=== PATIENT | female | born 1975 | race Caucasian/White ===

== ENCOUNTER 2020-10-01 16:16 | Outpatient (REF) | payer MEDICAID, OTHER, SELFPAY ==
--- NOTE | ~2020-10-01 | MM_ITS ---
EXAMINATION: MM SCREENING DIGITAL BREAST TOMOSYNTHESIS, BILATERAL CLINICAL INFORMATION: Screening. Asymptomatic. The lifetime risk of breast cancer based on the Tyrer-Cuzick Model is 15%. COMPARISON: Mammography: 06/26/2019, 03/01/2017 TECHNIQUE: Digital breast tomosynthesis is performed in both the craniocaudal and mediolateral oblique views along with computer-aided detection (CAD). Synthesized 2D images are generated from the tomosynthesis. FINDINGS: There are scattered areas of fibroglandular density (ACR BI-RADS breast composition Category b). There are no significant masses, abnormal calcifications, or other abnormalities. Parenchymal pattern is similar to prior studies. Small nodular asymmetry central inner right breast on CC view are stable. There is no developing density. Again, there is dermal lesion overlying the posterior medial left breast. The axilla are unremarkable. No significant changes. MM/MM tomosynthesis screening BI IMPRESSION: No significant changes from prior studies. ASSESSMENT: BI-RADS 2: Benign RECOMMENDATION: Routine annual mammography screening. This patient's information was entered into a reminder system with a target due date for their next mammogram.
== END 2020-10-01 16:17 | disposition home or self-care (01) ==
LOC: HO.MAMMO 16:16
PROVIDERS: Visit Provider Family Medicine
DX: Z12.31 Encounter for screening mammogram for malignant neoplasm of breast (principal)
CPT/HCPCS: 77063; 77067

== ENCOUNTER 2021-03-12 20:30 | Emergency (ER) | payer MEDICAID, OTHER, SELFPAY ==
--- NOTE | ~2021-03-12 | XR_ITS ---
EXAMINATION: XR CHEST CLINICAL INFORMATION: Difficulty breathing COMPARISON: None TECHNIQUE: Frontal view of the chest was obtained. FINDINGS: No acute finding. No obvious failure or infiltrate. No effusion. The cardiac silhouette is within normal limits. XR/XR chest 1V IMPRESSION: No acute finding.
[2021-03-12 20:36] VITALS: BP 119/77; PULSE 93; RESP 18; TEMP 36.1; O2SAT 98; BMI 39.7
--- NOTE | 2021-03-12 22:16 | PC.NURSE ---
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 pt appears to be in no acute distress. speaking full sentences cough and malaise reported for 4-5 days. pt reports lots of secretions. described as clear and yellow- described as non purulent in nature. cough appears to be dry while with provider. pt denies cp/fever/chills/recent travel. denies exposure to covid. +vaccination status (moderna). pt denies smoking history. pt reports history of asthma, htn, arthritis and related issues. Lung sounds clear in all short. xray does not show pneumonia. Plan is to be tested for covid, flu, rsv.
--- NOTE | 2021-03-12 22:24 | ED.ASTHMA ---
HPI - Asthma General Chief Complaint: Asthma Stated Complaint: asthma Time Seen by Provider: 03/12/21 22:12 Source: patient Mode of arrival: ambulatory History of Present Illness HPI Narrative: 46-year-old female with a past medical history of asthma, HTN, hypothyroid, presenting to the ED complaining of productive cough of clear/yellowish phlegm, SOB, and increased lethargy x4-5 days. Denies fever, chills, chest pain, recent travel, history of blood clots, cigarette smoking, exposure to COVID-19 Is vaccinated for COVID-19 with Jeremie REDD complaint: shortness of breath Related Data Previous Rx's Medication Instructions Recorded albuterol sulfate 90 mcg/actuation 2 puff INHALATION Q4-6H PRN #6.7 g 03/12/21 aerosol inhaler benzonatate 100 mg capsule 100 mg PO TID PRN #14 cap 03/12/21 (Tessalon Perles) fluticasone propionate 50 2 spray INTRANASAL DAILY #16 g 03/12/21 mcg/actuation nasal spray,suspension (Flonase Allergy Relief) hydrocodone-homatropine 5 mg-1.5 5 ml PO Q6H PRN #200 ml 03/12/21 mg/5 mL (5 mL) oral syrup Allergies Allergy/AdvReac Type Severity Reaction Status Date / Time dipyrone [DIPYRONE] Allergy Unknown UNKNOWN Unverified 04/18/20 19:11 blood pressure medication Allergy Unknown Uncoded 03/12/21 20:47 Review of Systems Review of Systems: Constitutional: No Fever, No Chills, No Fatigue, No Malaise ENT/Mouth: No Ear Pain, No Nasal Congestion, No sore throat, No Rhinorrhea, No Swallowing Difficulty Cardiovascular: No Chest Pain, + SOB, No Edema Respiratory: + Cough, + Sputum, No Wheezing, No Smoke Exposure Gastrointestinal: No Nausea, No Vomiting, No Abdominal pain Musculoskeletal: No joint pain Skin: No Skin Lesions, No rash Neuro: No Weakness, No Headache Yes all other systems are reviewed and are negative FOR[facility]LY [facility] Past Medical History Attestation statement: The following information was validated with the patient. Medical History (Updated 03/12/21 @ 23:41 by HARDIK Mora) Asthma HTN (hypertension) Hypothyroidism Social History Social History Advance Directives: No Advance Directives Information Provided: Yes Patient : No Physical Exam Vital Signs: Vital Signs: Last Vital Signs Temp 97.8 F 03/12/21 22:50 Pulse 77 03/12/21 22:50 Resp 16 03/12/21 22:50 BP 148/107 H 03/12/21 22:50 Pulse Ox 97 03/12/21 22:50 Body Mass Index 39.7 Const: General: cooperative, healthy appearing, no acute distress and well developed Orientation/consciousness: patient oriented x3 Limitations: no limitations HENMT: Head: Yes normal to inspection Ears: hearing grossly normal bilaterally General nose exam: Normal external nose present Face and sinus: Yes normal facial exam Throat: Yes posterior oropharynx normal, Yes tonsils normal and Yes uvula midline Eyes: General: appearance normal, both eyes and all related structures EOM: EOMs intact bilaterally Neck: Neck: Yes normal visual inspection Resp: Effort & Inspection: normal respiratory effort Auscultation: clear to auscultation bilaterally, no rales, no rhonchi and no wheezes Cardio: Rate: regular rate Heart sounds: S1 normal heart sound present and S2 normal heart sound present GI: Inspection: Yes normal to inspection Palpation (GI): Soft to palpation, nontender, no guarding and not rigid Skin: Rashes: no rashes Wounds: no wounds Neuro: General: patient oriented x3 Gait exam (Neuro): Normal gait present Extrem: General: Yes normal to inspection, Yes no pedal edema and Yes no calf tenderness Course Course Course Narrative: XR chest 1V IMPRESSION: No acute finding. -2340--COVID-19/influenza/RSV negative. Results discussed with patient, supplied with albuterol inhaler in the ED. Is to follow up with PCP. She verbalized understanding feel safe for discharge home MDM - Asthma MDM Narrative Medical decision making narrative: 46-year-old female with a past medical history of asthma, HTN, hypothyroid, presenting to the ED complaining of productive cough of clear/yellowish phlegm, SOB, and increased lethargy x4-5 days. On exam VSS, NAD/well-appearing, lungs CTA, no pedal edema/calf tenderness. Concern for viral syndrome/COVID-19. Rule out pneumonia. Low concern for ACS/PE Plan: CXR, COVID-19 testing, Tesjohnna Stewart/Hycodasam, inhaler Medical Records Attestation: I reviewed the patient's medical records. Lab Data Attestation: I reviewed the patient's lab results. Labs: Lab Results 03/12/21 Range/Units 22:29 Coronavirus (PCR) NEGATIVE (Negative) Influenza Type A (PCR) NEGATIVE (Negative) Influenza Type B (PCR) NEGATIVE (Negative) RSV RNA Qual (PCR) NEGATIVE (Negative) Discharge Plan Discharge Clinical Impression: Acute viral syndrome Patient Disposition: Home, Self-Care Additional Instructions: You tested negative for COVID-19, the flu, and RSV Your x-ray was also unremarkable Use albuterol inhaler at home for shortness of breath/wheezing Tessalon Perles and Hycodan cough syrup for for cough Please follow-up with her primary care doctor If her symptoms persist or worsen, constant worsening cough, shortness breath, chest pain, or fever please return to the ED Voc? testou negativo para COVID-19, gripe e RSV Seu raio-x tamb?m estava normal Use o inalador de albuterol em casa para falta de ar / respira??o ofegante Tessalon Perles e xarope para tosse Hycodan para tosse Por favor, acompanhe com seu m?dico de cuidados prim?smith Se os sintomas chuck persistirem ou piorarem, piora que da tosse, falta de ar, marcela no peito ou febre, retorne ao pronto-flaca Prescriptions: New albuterol sulfate 90 mcg/actuation HFA aerosol inhaler 2 puff inhalation Q4-6H PRN (Reason: shortness of breath or wheezing) Qty: 6.7 RF: 0 benzonatate [Tessalon Perles] 100 mg capsule 100 mg PO TID PRN (Reason: cough) Qty: 14 RF: 0 fluticasone propionate [Flonase Allergy Relief] 50 mcg/actuation spray,suspension 2 spray intranasal DAILY Qty: 16 RF: 0 hydrocodone-homatropine 5-1.5 mg/5 mL (5 mL) syrup 5 ml PO Q6H PRN (Reason: cough) Qty: 200 RF: 0 Referrals: Heath Maria MD [Primary Care Provider] - 2 days
[2021-03-12] MEDS: Albuterol Sulfate 90 MCG 8 GM INHALER 4 PUFF INHALE (22:30)
[2021-03-12] MEDS: HYDROcodone/Homat 5/1.5/5 ML 5 ML SYRUP PO (22:32)
[2021-03-12] MEDS: Benzonatate 100 MG CAPSULE 200 MG PO (22:32)
[2021-03-12 22:50] VITALS: BP 148/107; PULSE 77; RESP 16; TEMP 36.6; O2SAT 97
[2021-03-12 23:11] LABS: Influenza A PCR NEGATIVE (Negative); Influenza B PCR NEGATIVE (Negative); Resp Syncy Virus RNA Qual PCR NEGATIVE (Negative); SARS COV2 PCR INHOUSE NEGATIVE (Negative)
[2021-03-12 23:43] VITALS: BP 148/86; PULSE 70; RESP 16; O2SAT 98
== END 2021-03-12 23:53 | disposition home or self-care (01) ==
PROVIDERS: Emergency Provider Internal Medicine; PCP Internal Medicine
DX: B34.9 Viral infection, unspecified (principal); J45.909 Unspecified asthma, uncomplicated; I10 Essential (primary) hypertension; Z79.899 Other long term (current) drug therapy; Z20.822 Contact with and (suspected) exposure to COVID-19
CPT/HCPCS: 0241U; 36415; 71045; 99284

== ENCOUNTER 2021-07-03 20:13 | Emergency (ER) | payer MEDICAID, OTHER, SELFPAY ==
--- NOTE | ~2021-07-03 | XR_ITS ---
EXAMINATION: XR CHEST CLINICAL INFORMATION: Cough COMPARISON: Chest x-ray 03/12/2021 TECHNIQUE: Frontal view of the chest was obtained. FINDINGS: Subtle patchy airspace opacity at the right lung base new since prior study. Left lung is normally aerated. There is no pleural effusion. The heart size is normal. The cardiac and the mediastinal contours are normal. XR/XR chest 1V IMPRESSION: Patchy airspace opacity right lung base consistent with pneumonia.
[2021-07-03 20:34] VITALS: BP 153/99; PULSE 106; RESP 18; TEMP 37.2; O2SAT 96; BMI 31.8
--- NOTE | 2021-07-03 21:07 | ED.ASTHMA ---
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 Mode of arrival: ambulatory Limitations: no limitations History of Present Illness MD complaint: asthma attack (fevers, coughs, headaches) Onset (ago): day(s) (4) Severity: moderate Context: other (family members have flu, patient has had two vaccines) Associated symptoms: dry cough and fever Asthma History: childhood onset Treatments Prior to Arrival: inhaled bronchodilator Related Data Previous Rx's Medication Instructions Recorded albuterol sulfate 90 mcg/actuation 2 puff INHALATION Q4-6H PRN #6.7 g 03/12/21 aerosol inhaler benzonatate 100 mg capsule 100 mg PO TID PRN #14 cap 03/12/21 (Tessalon Perljeannette) fluticasone propionate 50 2 spray INTRANASAL DAILY #16 g 03/12/21 mcg/actuation nasal spray,suspension (Flonase Allergy Relief) hydrocodone-homatropine 5 mg-1.5 5 ml PO Q6H PRN #200 ml 03/12/21 mg/5 mL (5 mL) oral syrup amoxicillin 875 mg-potassium 1 tab PO BID 10 Days #20 tab 07/03/21 clavulanate 125 mg tablet (Augmentin) prednisone 20 mg tablet 60 mg PO DAILY 4 Days #12 tab 07/03/21 Allergies Allergy/AdvReac Type Severity Reaction Status Date / Time dipyrone [DIPYRONE] Allergy Unknown UNKNOWN Verified 07/03/21 21:42 blood pressure medication Allergy Unknown Uncoded 07/03/21 21:42 Review of Systems Review of Systems: Constitutional : pos Fever, No Chills ENT/Mouth : No Hoarseness, No sore throat, No Rhinorrhea Eyes: No Redness, No Discharge, No Vision Changes Cardiovascular : No Chest Pain, positive SOB, no Dyspnea on Exertion, No Edema Respiratory : positive Cough, No Sputum, positive Wheezing, Gastrointestinal : No Nausea, No Vomiting, No Diarrhea, No abdominal Pain Genitourinary : No Dysuria, No Hematuria Musculoskeletal : No joint pain, No Myalgias Skin : No rash Neuro : No Weakness, No Numbness, pos Headache Psych : No anxiety, depression Heme/Lymph: No Bruising, No Bleeding Endocrine : No Polyuria, No Polydipsia All other systems reviewed and are negative PMFSH Past Medical History Attestation statement: The following information was validated with the patient. Medical History Asthma HTN (hypertension) Hypothyroidism Social History Social History Alcohol intake: current Alcohol intake frequency: holidays/special occasions only Patient Tobacco Use Status: Never used Tobacco Use of substances other than those prescribed or required for medical reasons: No Advance Directives: No Advance Directives Information Provided: Yes Physical Exam Vital Signs: Vital Signs: Last Vital Signs Temp 98.3 F 07/03/21 21:18 Pulse 100 07/03/21 21:34 Resp 17 07/03/21 21:18 BP 152/92 H 07/03/21 21:18 Pulse Ox 96 07/03/21 21:18 BMI result Body Mass Index 31.8 Appearance: Alert. Oriented X3. No acute distress. Eyes: Pupils equal, round and reactive to light. ENT: Pharynx normal. Neck: Normal inspection. Neck supple. CVS: Normal heart rate and rhythm. Pulses normal. Respiratory: No respiratory distress. Breath sounds diminished scant wheezes noted Abdomen: Soft and non-tender. Skin: Skin warm and dry. Normal skin color. Normal skin turgor. Extremities: No lower extremity edema. No calf ttp Neuro: Oriented X 3. No motor deficit. No sensory deficit. Course Course Course Narrative: lungs clear no hypoxia stable for DC MDM - Asthma MDM Narrative Medical decision making narrative: 46 yo female with asthma notes she has had URI symptoms since Wednesday and her asthma is not responding to her pump - at this time neb treatment, PO steroids, CXR for pneumonia and RSV/flu/COVID ordered given she reports sick flu contacts. She is not toxic or hypoxic at this time. Lab Data Labs: Lab Results 07/03/21 Range/Units 21:26 Influenza Type A (PCR) NEGATIVE (Negative) Influenza Type B (PCR) NEGATIVE (Negative) RSV RNA Qual (PCR) NEGATIVE (Negative) SARS-CoV-2 RNA (RT-PCR) NEGATIVE (Negative) Discharge Plan Discharge Clinical Impression: Asthma with acute exacerbation Qualifiers: Asthma severity: mild Asthma persistence: persistent Qualified Code(s): J45.31 - Mild persistent asthma with (acute) exacerbation Pneumonia Qualifiers: Pneumonia type: due to unspecified organism Laterality: right Lung location: lower lobe of lung Qualified Code(s): J18.9 - Pneumonia, unspecified organism Patient Disposition: Home, Self-Care Instructions: Asthma (ED), Pneumonia (ED) Additional Instructions: return to ED for any worsening symptoms or concerns Prescriptions: New prednisone 20 mg tablet 60 mg PO DAILY 4 Days Qty: 12 RF: 0 amoxicillin-pot clavulanate [Augmentin] 875-125 mg tablet 1 tab PO BID 10 Days Qty: 20 RF: 0 No Action albuterol sulfate 90 mcg/actuation HFA aerosol inhaler 2 puff inhalation Q4-6H PRN (Reason: shortness of breath or wheezing) Qty: 6.7 RF: 0 benzonatate [Tessalon Perles] 100 mg capsule 100 mg PO TID PRN (Reason: cough) Qty: 14 RF: 0 fluticasone propionate [Flonase Allergy Relief] 50 mcg/actuation spray,suspension 2 spray intranasal DAILY Qty: 16 RF: 0 hydrocodone-homatropine 5-1.5 mg/5 mL (5 mL) syrup 5 ml PO Q6H PRN (Reason: cough) Qty: 200 RF: 0 Interventions: ED Discharge Assessment Last Done: 07/03/21 22:46 Discharge Date/Time: 07/03/21 22:46 Print Language: [place]
[2021-07-03 21:18] VITALS: BP 152/92; PULSE 99; RESP 17; TEMP 36.8; O2SAT 96
[2021-07-03 21:34] VITALS: PULSE 100; O2SAT 96
[2021-07-03] MEDS: Albuterol Sulfate (0.083%) 2.5 MG/3 ML VIAL.NEB 5 MG INHALE (21:36)
[2021-07-03] MEDS: predniSONE 20 MG TABLET 60 MG PO (21:43)
[2021-07-03 22:08] LABS: Influenza A PCR NEGATIVE (Negative); Influenza B PCR NEGATIVE (Negative); Resp Syncy Virus RNA Qual PCR NEGATIVE (Negative); SARS COV2 PCR INHOUSE NEGATIVE (Negative)
[2021-07-03] MEDS: Amoxicillin/Potassium Clav 875 MG TABLET PO (22:45)
== END 2021-07-03 22:46 | disposition home or self-care (01) ==
PROVIDERS: Emergency Provider Emergency Medicine
DX: J45.31 Mild persistent asthma with (acute) exacerbation (principal); J18.9 Pneumonia, unspecified organism; Z20.822 Contact with and (suspected) exposure to COVID-19; I10 Essential (primary) hypertension
CPT/HCPCS: 0241U; 36415; 71045; 94640; 99284

== ENCOUNTER 2021-11-25 09:08 | Outpatient (REF) | payer MEDICAID, OTHER, SELFPAY ==
--- NOTE | ~2021-11-25 | MM_ITS ---
EXAMINATION: MM SCREENING DIGITAL BREAST TOMOSYNTHESIS, BILATERAL CLINICAL INFORMATION: Screening. Asymptomatic. The lifetime risk of breast cancer based on the Tyrer-Cuzick Model is 17%. COMPARISON: Mammography: 10/01/2020, 06/26/2019, 03/01/2017 (baseline) TECHNIQUE: Digital breast tomosynthesis is performed in both the craniocaudal and mediolateral oblique views along with computer-aided detection (CAD). Synthesized 2D images are generated from the tomosynthesis. FINDINGS: There are scattered areas of fibroglandular density (ACR BI-RADS breast composition Category b). There are no significant masses, abnormal calcifications, or other abnormalities. Parenchymal pattern is similar to prior studies. There is a dermal lesion again noted overlying the posterior medial left breast. MM/MM tomosynthesis screening BI IMPRESSION: No mammographic evidence of malignancy. ASSESSMENT: BI-RADS 2: Benign RECOMMENDATION: Routine annual mammography screening. This patient's information was entered into a reminder system with a target due date for their next mammogram.
== END 2021-11-25 09:09 | disposition home or self-care (01) ==
LOC: HO.MAMMO 09:08
PROVIDERS: PCP Internal Medicine; Visit Provider Internal Medicine
DX: Z12.31 Encounter for screening mammogram for malignant neoplasm of breast (principal)
CPT/HCPCS: 77063; 77067

== ENCOUNTER → 2022-09-08 08:15 | Outpatient (BNVA) | payer OTHER, SELFPAY | PROVIDERS: PCP Internal Medicine; Visit Provider Nurse Practitioner Family | DX: Z12.11 Encounter for screening for malignant neoplasm of colon (principal) | CPT/HCPCS: 99202 ==

== ENCOUNTER → 2022-09-14 14:31 | Outpatient (BNVA) | payer OTHER, SELFPAY | PROVIDERS: PCP Internal Medicine; Referring Provider Internal Medicine; Visit Provider Internal Medicine Cardiovascular Disease | DX: R07.2 Precordial pain (principal) | CPT/HCPCS: 93005; 99202 ==

== ENCOUNTER → 2022-09-29 13:28 | Outpatient (REF) | payer OTHER, SELFPAY ==
--- NOTE | 2022-09-29 14:17 | CA_ITS ---
Transthoracic Echocardiogram Patient (Last, First, Middle): Elizabeth Coorna, Gender: Female Date of : 1975 Age: 47 Procedure Date: 09/29/2022 Procedure Type: Transthoracic Echocardiogram Location: OP Height: 152. cm Weight: 92. kg BSA: 1.87 m2 Heart Rate: 67 bpm BP: 125 / 80 mmHg Face Burler: JOSEPH Referring MD: Neo Harris MD Research Electrician: Neo Harris MD Symptoms: R07.2 - Precordial pain Study Quality: Fair ECG Rhythm: Sinus Conclusions: - 1. Normal LV systolic function with normal filling pattern 2. Normal cardiac valvular Doppler 3. Normal RV systolic pressure 4. No gross pericardial effusion Findings Left Ventricle Normal left ventricular size, thickness, and systolic function. The visually estimated ejection fraction is between 55-60%. Regional wall motion abnormalities can not be excluded due to suboptimal endocardial definition. Spectral Doppler is indicative of a normal filling pattern. Right Ventricle Normal right ventricular cavity size. There is normal right ventricular systolic function. Atria The left atrium is normal in size. Interatrial shunt cannot be excluded. The right atrium is normal in size. Aortic Valve The aortic valve structure and function is likely normal. There is no aortic valve stenosis. There is no aortic valve regurgitation. Mitral Valve There is mild anterior and posterior mitral leaflet thickening. There is trace mitral valve regurgitation. There is no mitral valve stenosis. Pulmonic Valve The pulmonic valve was not well visualized. Tricuspid Valve Likely normal tricuspid valve structure and function. There is trace tricuspid valve regurgitation. The right ventricular systolic pressure is normal. The right ventricular systolic pressure is 17 mmHg. Normal right atrial pressure. There is no evidence of pulmonary hypertension. Great Vessels All visible segments of the aorta are normal in size. The pulmonary artery was not well visualized. Venous The inferior vena cava is normal in size and collapses greater than 50% with inspiration. Pericardium/Pleural There is no evidence of pericardial effusion. Prior Study Comparison No significant change compared to prior study dated: 08/24/2018. Recommendations, Care & Conclusions Recommend contrast in the future to improve endocardial definition. Measurements 2D Linear Measurements IVSd: 0.86 0.6-0.9/0.6-1.0 cm LVIDd: 5.32 3.9-5.3/4.2-5.9 cm LVIDd Index: 2.84 2.4-3.2/2.2-3.1 cm/m2 LVIDs: 3.67 2.0-3.6 cm LVPWd: 0.86 0.7-1.1 cm LA Diam: 3.60 2.7-3.8/3.0-4.0 cm LAIDs Index: 1.93 1.5-2.3 cm/m2 LV Mass: 206.12 67-162/88-224 g LV Mass Index: 110.23 43-95/49-115 g/m2 LVOT Diam: 1.90 3.0+(-)1.3 cm 2D Systolic Function EF 4C: 55.70 >55% EF 2C: 55.60 >55% EF BiP: 54.50 >55% Mitral Valve MV Pk E: 1.10 MV PK A: 0.92 MV Decel Time: 215.00 E/A: 1.20 E'Lateral: 9.03 E'Medial: 9.03 E/E' Med: 12.20 E/E' Lat: 12.20 PHT: 63.00 MVA PHT: 3.49 Decel Nelson: 5.10 Aortic Valve AoV Pk Ilya: 1.44 AoV Mn Ilya: 1.10 AoV VTI: 0.36 AoV Pk Grad: 8.00 Aov Mn Grad: 5.00 JH Cont.VTI: 2.28 LVOT LVOT Pk Ilya: 1.17 LVOT Mn Ilya: 0.92 LVOT VTI: 0.29 LVOT Pk Grad: 5.00 LVOT Mn Grad: 4.00 LVOT Diam: 1.90 LVOT Area: 2.84 Diastolic Function MV Pk E: 1.10 MV Pk A: 0.92 E/A: 1.20 E'Medial: 9.03 E/E' Med: 12.20 E' Laterial: 9.03 E/E' Lat: 12.20 Right Ventricle TAPSE (mm): 21.70 TVS' Ilya: 12.20 Tricuspid Valve TR Pk Ilya: 1.87 TR Pk Grad: 14.00 RA Press: 3.00 RVSP: 17.00 Great Vessels Aorta Sinus of Valsalva: 2.70 2.0-3.5 cm Ao Asc: 3.30 2.1-3.4 cm Pulmonary Valve PV Pk Ilya: 0.88 Peak PV Grad: 3.00 Updated in Other Vendor System with Status of Final Neo Harris MD electronically signed on 09/30/2022 4:51:40 PM with status of Final
--- NOTE | 2022-09-29 14:17 | HM_ITS ---
Conclusion: 1. Patient was monitored for total period of 1 day and 18 hours 2. Baseline was normal sinus rhythm with average heart of 81 beats per minute 3. No significant pauses, arrhythmias or bradycardia noted 4. No patient reported events MTDD
== END ==
LOC: HO.CARD 13:28
PROVIDERS: PCP Internal Medicine; Visit Provider Internal Medicine Cardiovascular Disease
DX: R07.2 Precordial pain (principal)
CPT/HCPCS: 93225; 93306

== ENCOUNTER → 2022-10-01 09:32 | Outpatient (REF) | payer OTHER, SELFPAY ==
--- NOTE | ~2022-10-01 | NM_ITS ---
Exercise Myocardial perfusion study Indication: Precordial chest pain to evaluate for myocardial ischemia Technique: The patient was brought in for an exercise perfusion study on 10/01/2022. Patient performed exercise as per Eduardo protocol and was injected 25 mCi of sestamibi was given intravenously one target HR was achieved. Images were obtained using the SPECT gamma camera interlaced with the gating device. Images were obtained in supine position. Resting perfusion study was performed on 10/06/2022. Patient was administered 25 mCi of sestamibi intravenously at rest. Images were then obtained in supine position. Images obtained with and without CT attenuation. Total DLP 103 mGy-cm. Images were processed with the software and compared side to side in short axis, horizontal long axis and vertical long axis views. Findings: The stress perfusion study showed non attenuated images show overall normal uptake of radiotracer in all segments of LV myocardium. Attenuation corrected images show minimal thinning of the basal septum of the LV myocardium.. The gated study shows normal LV systolic function with calculated LVEF of 74%. LV cavity is normal in size. The gated study shows normal systolic wall thickening and contraction of all segments. There is no transient ischemic dilation. Resting study shows attenuated corrected images show normal uptake of radiotracer in all segments of LV myocardium. Gating at rest reveals normal systolic wall motion with ejection fraction at 70%. The findings are consistent with normal myocardial perfusion. NM/NM cardiolite stress test Impression: 1. Normal myocardial perfusion 2. Gated LVEF is 70 3. Transient ischemic dilatation not present Stress EKG is equivocal for ischemia
--- NOTE | 2022-10-01 09:35 | CA_ITS ---
Acquisition Time: 2022-10-01 10:41:47 Total Exercise Time: 00:07:18 Test Indications: CP Medications: SEE H Protocol: ELAINE Max HR: 150 BPM 87% of Pred: 172 BPM Max BP: 160/068 mmHG Max Work Load: 8.4 METS Exercise stress test using Elaine protocol, total of 7 min 18 sec, METS 8.40 and HR up to 87 % of TAPHR. Pt toleesdrated well, Mild SOB without CP at the end of the exercise. EKG without arrhythmia, mild horizontal ST depressions seen in lead V5 and V6, nuclear images to follow. Normotensive response to exedrcise. Test reviewed with Dr. Harris Referred By: Neo Harris Overread By: Miroslava Washburn NP
== END ==
LOC: HO.CARD 09:32
PROVIDERS: PCP Internal Medicine; Visit Provider Internal Medicine Cardiovascular Disease
DX: R07.2 Precordial pain (principal)
CPT/HCPCS: 78452; 93017; A9500

== ENCOUNTER → 2022-10-26 15:17 | Outpatient (BNVA) | payer OTHER, SELFPAY | PROVIDERS: PCP Internal Medicine; Referring Provider Internal Medicine; Visit Provider Internal Medicine Cardiovascular Disease | DX: Z01.810 Encounter for preprocedural cardiovascular examination (principal); R07.2 Precordial pain | CPT/HCPCS: 99212 ==

== ENCOUNTER 2022-11-25 19:01 | Emergency (ER) | payer OTHER, SELFPAY ==
--- NOTE | ~2022-11-25 | XR_ITS ---
EXAMINATION: PORTABLE CHEST 1 VIEW CLINICAL INFORMATION: CP SOB cough. COMPARISON: 07/03/2021. TECHNIQUE: Portable frontal view of the chest was obtained. FINDINGS: The lungs are well expanded. No focal infiltrate, effusion, edema, or pneumothorax. Cardiac and mediastinal silhouettes are within normal limits for technique. Degenerative changes in the spine and shoulders. No acute bony abnormality seen. XR/XR chest 1V IMPRESSION: No evidence of acute disease.
--- NOTE | 2022-11-25 19:31 | ED.GENADULT ---
HPI - General Adult General Chief complaint: Asthma <HARDIK Cotton - Last Filed: 11/25/22 19:35> Stated complaint: SOB/Asthma/ coughing/fever <HARDIK Cotton - Last Filed: 11/25/22 19:35> Time Seen by Provider: 11/25/22 21:59 <HARDIK Cotton - Last Filed: 11/25/22 19:35> Source: patient, RN notes reviewed, old records reviewed and educational sign language interpreter (Upper Sorbian voice educational sign language interpreter) <Alphonse Banuelos - Last Filed: 11/25/22 23:17> Mode of arrival: ambulatory <Alphonse Banuelos - Last Filed: 11/25/22 23:17> Limitations: language barrier <Alphonse Banuelos - Last Filed: 11/25/22 23:17> History of Present Illness HPI narrative: 47-year-old female past medical history significant for asthma presents for evaluation of shortness of breath, cough. Patient is intubated using he reports he has voiced interpreting services. She reports increasing shortness of breath for the last 4 days She reports dry cough and subjective fevers 3 days ago, no fevers today. Denies any headaches, sore throat, chest pain She reports that she has an albuterol inhaler but only saline for a nebulizer machine at home No other complaints or concerns at this time <Alphonse Banuelos - Last Filed: 11/25/22 23:17> Related Data Home medications: Home Medications Medication Instructions Recorded Confirmed atenolol 50 mg tablet 50 mg PO DAILY 09/08/22 10/26/22 hydrochlorothiazide 25 mg tablet 25 mg PO DAILY 09/08/22 10/26/22 levothyroxine 75 mcg tablet 75 mcg PO DAILY 09/08/22 10/26/22 ustekinumab 45 mg/0.5 mL 45 mg subcut Q12W 09/08/22 10/26/22 subcutaneous syringe (Stelara) losartan 100 mg tablet 100 mg PO DAILY 09/14/22 10/26/22 Previous Rx's Medication Instructions Recorded albuterol sulfate 90 mcg/actuation 2 puff inhalation Q4-6H PRN 03/12/21 aerosol inhaler shortness of breath or wheezing #6.7 grams fluticasone propionate 50 2 spray intranasal DAILY #16 grams 03/12/21 mcg/actuation nasal spray,suspension (Flonase Allergy Relief) bisacodyl 5 mg tablet,delayed 10 mg PO ONCE 1 day #2 tabs 09/08/22 release (Dulcolax (bisacodyl)) polyethylene glycol 3350 17 17 g PO DAILY #510 grams 09/08/22 gram/dose oral powder (Miralax) polyethylene glycol 3350 17 238 g PO ONCE #238 grams 09/08/22 gram/dose oral powder (Miralax) albuterol sulfate 1.25 mg/3 mL 1.25 mg (3 mL) inhalation Q4-6H 11/25/22 solution for nebulization PRN shortness of breath or wheezing #90 mL prednisone 20 mg tablet 40 mg PO DAILY #10 tabs 11/25/22 <HARDIK Cotton - Last Filed: 11/25/22 19:35> Allergies/adverse reactions: Allergies Allergy/AdvReac Type Severity Reaction Status Date / Time dipyrone [DIPYRONE] Allergy Unknown UNKNOWN Verified 10/26/22 15:31 pork derived (porcine) Allergy Unknown Verified 11/25/22 19:31 blood pressure medication Allergy Unknown Uncoded 09/08/22 08:28 <HARDIK Cotton - Last Filed: 11/25/22 19:35> Review of Systems Constitutional: Constitutional: Reports as per HPI, Denies chills, Denies fatigue, Reports fever(s) and Denies headache(s) <Alphonse Banuelos - Last Filed: 11/25/22 23:17> ENT: Denies headache(s) <Alphonse Banuelos - Last Filed: 11/25/22 23:17> Cardiovascular: Cardiovascular: Denies chest pain, Reports dyspnea and Reports dyspnea on exertion <Alphonse Banuelos - Last Filed: 11/25/22 23:17> Respiratory: Respiratory: Reports cough, Reports dyspnea and Reports dyspnea on exertion <Alphonse Banuelos - Last Filed: 11/25/22 23:17> Gastrointestinal: Gastrointestinal: Denies abdominal pain <Alphonse Banuelos - Last Filed: 11/25/22 23:17> Genitourinary: Genitourinary: Denies dysuria <Alphonse Banuelos - Last Filed: 11/25/22 23:17> Neurologic: Denies headache(s) and Denies focal weakness <Alphonse Banuelos - Last Filed: 11/25/22 23:17> Endocrine: Endocrine: Denies fatigue <Alphonse Banuelos - Last Filed: 11/25/22 23:17> [facility] Past Medical History Medical History: Medical History Asthma HTN (hypertension) Hypothyroidism <HARDIK Cotton - Last Filed: 11/25/22 19:35> Family History Family History: Family History Mother Heart attack Obesity Hypertension Depression Father Heart attack Diabetes Hypertension Brother Heart attack <HARDIK Cotton - Last Filed: 11/25/22 19:35> Social History Social History: Social History Alcohol intake: never Patient Tobacco Use Status: Never used Tobacco Advance Directives: No Advance Directives Information Provided: No <HARDIK Cotton - Last Filed: 11/25/22 19:35> Physical Exam ED Vital Signs: Vital Signs - 24 hr 11/25/22 19:32 11/25/22 21:35 Temperature 97.8 F 98.6 F Pulse Rate 95 80 Respiratory Rate 18 20 Blood Pressure 136/87 131/81 Pulse Oximetry 97 96 Oxygen Delivery Method Room Air Room Air BMI result Body Mass Index 40.6 <HARDIK Cotton - Last Filed: 11/25/22 19:35> Vital Signs - 24 hr 11/25/22 19:32 11/25/22 21:35 Temperature 97.8 F 98.6 F Pulse Rate 95 80 Respiratory Rate 18 20 Blood Pressure 136/87 131/81 Pulse Oximetry 97 96 Oxygen Delivery Method Room Air Room Air BMI result Body Mass Index 40.6 <Alphonse Banuelos - Last Filed: 11/25/22 23:17> Const General: healthy appearing, comfortable, no acute distress, alert and awake <Alphonse Banuelos - Last Filed: 11/25/22 23:17> Nutritional Appearance: well nourished < - Last Filed: 11/25/22 23:17> Orientation/consciousness: patient oriented x3 < Last Filed: 11/25/22 23:17> HENMT Head: Yes normocephalic and Yes atraumatic < - Last Filed: 11/25/22 23:17> Throat: Yes posterior oropharynx normal < Last Filed: 11/25/22 23:17> Eyes Eyelids: Yes eyelids normal < - Last Filed: 11/25/22 23:17> Conjunctivae: conjunctivae normal < - Last Filed: 11/25/22 23:17> Sclerae: sclerae normal < Last Filed: 11/25/22 23:17> Corneas: corneas normal < Last Filed: 11/25/22 23:17> Pupils: Equal, round and reactive pupils present < Last Filed: 11/25/22 23:17> EOM: EOMs intact bilaterally < Last Filed: 11/25/22 23:17> Neck Neck: Yes full ROM < Last Filed: 11/25/22 23:17> Resp Effort & Inspection: normal respiratory effort, able to speak in complete sentences and audible wheezes < Last Filed: 11/25/22 23:17> Auscultation: not clear to auscultation bilaterally and wheezes < Last Filed: 11/25/22 23:17> Cardio Rate: regular rate < - Last Filed: 11/25/22 23:17> Rhythm: regular rhythm < - Last Filed: 11/25/22 23:17> Skin General skin exam: no rashes or lesions noted and elasticity normal < Last Filed: 11/25/22 23:17> Neuro General: patient oriented x3 < Last Filed: 11/25/22 23:17> Cranial nerves: Yes Equal, round and reactive pupils present and Yes Bilaterally intact EOM present <Alphonse Banuelos - Last Filed: 11/25/22 23:17> Cognition (Neuro): normal cognition <Alphonse Banuelos - Last Filed: 11/25/22 23:17> Extrem Other: Moving all extremities well without any obvious deformities <Alphonse Banuelos - Last Filed: 11/25/22 23:17> Course Course Course Narrative: This is an RME: Additional HPI, ROS, PE not included below will be deferred to primary provider. 47 year old female with PMH of asthma, HTN and hypothyoid presents with SOB, cough and recent fevers. Patient had a negative COVID test. No sick contacts. Patient reports CP with cough and additionally endorses fatigue and malaise. PE: audible wheezes that clear with cough Plan: Flu swab <HARDIK Cotton - Last Filed: 11/25/22 19:35> Medical Decision Making Medical Decision Making MDM Narrative: Patient clinically has a mild asthma exacerbation. She is in no respiratory distress. Chest x-ray is without evidence of pneumonia or other respiratory issues. Will treat with a short course of prednisone and albuterol refills for her nebulizer machine. Vital signs are stable on room air <Alphonse Banuelos - Last Filed: 11/25/22 23:17> Differential Diagnosis Acute asthma exacerbation Upper respiratory infection Viral syndrome COVID-19 <Alphonse Banuelos - Last Filed: 11/25/22 23:17> Lab Data Result Diagrams: 11/25/22 20:31 11/25/22 20:31 <HARDIK Cotton - Last Filed: 11/25/22 19:35> Labs: Lab Results 11/25/22 11/25/22 11/25/22 Range/Units 20:31 20:31 20:31 WBC 6.4 (4.8-10.8) X10*3/uL RBC 4.88 (4.20-5.50) X10*6/uL Hgb 13.9 (12.0-16.0) g/dl Hct 41.6 (37.0-47.0) % MCV 85.2 (80.0-98.0) fL MCH 28.5 (27.0-33.0) pg MCHC 33.4 (31.0-35.0) g/dl RDW 12.7 (11.0-16.0) % Plt Count 210 (160-400) X10*3/uL MPV 9.9 (9.4-12.3) fL Immature Gran % (Auto) 0.3 (0.0-0.4) % Neut % (Auto) 54.0 (45-73) % Lymph % (Auto) 24.9 (20-40) % Childress % (Auto) 14.6 H (2-11) % Eos % (Auto) 5.6 H (0-4) % Baso % (Auto) 0.6 (0-2) % Lymph # (Auto) 1.6 (1.2-4.9) X10*3/uL Childress # (Auto) 0.9 (0.1-1.2) X10*3/uL Eos # (Auto) 0.4 (0.0-0.4) X10*3/uL Baso # (Auto) 0.0 (0.0-0.2) X10*3/uL Abs Immat Gran (auto) 0.02 (0.00-0.03) X10*3/uL Absolute Neuts (auto) 3.5 (2.0-8.3) x10*3/uL Absolute Nucleated RBC 0.000 (0.0-0.012) X10*3/uL Nucleated RBC % (auto) 0.0 (0.0-0.2) /100WBC Sodium 139 (135-145) mmol/L Potassium 3.9 (3.3-5.1) mmol/L Chloride 101 (96-108) mmol/L Carbon Dioxide 26 (22-29) mmol/L Anion Gap 16 (12-20) BUN 17 H (9-16) mg/dL Creatinine 0.69 (0.5-1.4) mg/dL Estim Creat Clear Calc 98.3 Estimated GFR > 60 Random Glucose 102 (60-115) mg/dL Calcium 9.1 (8.4-10.2) mg/dL Total Bilirubin 0.4 (0.0-1.0) mg/dL AST 21 (5-31) U/L ALT 16 (0-31) U/L Alkaline Phosphatase 64 (39-117) U/L Total Protein 6.9 (6.5-8.0) g/dL Albumin 3.9 (3.5-5.0) g/dL COVID-19 (MARK) (Negative) COVID-19 Clin Com Influenza Type A (RUY) Negative (Negative) Influenza Type B (RUY) Negative (Negative) Influenza A & B Note See Note 11/25/22 Range/Units 20:31 WBC (4.8-10.8) X10*3/uL RBC (4.20-5.50) X10*6/uL Hgb (12.0-16.0) g/dl Hct (37.0-47.0) % MCV (80.0-98.0) fL MCH (27.0-33.0) pg MCHC (31.0-35.0) g/dl RDW (11.0-16.0) % Plt Count (160-400) X10*3/uL MPV (9.4-12.3) fL Immature Gran % (Auto) (0.0-0.4) % Neut % (Auto) (45-73) % Lymph % (Auto) (20-40) % Childress % (Auto) (2-11) % Eos % (Auto) (0-4) % Baso % (Auto) (0-2) % Lymph # (Auto) (1.2-4.9) X10*3/uL Childress # (Auto) (0.1-1.2) X10*3/uL Eos # (Auto) (0.0-0.4) X10*3/uL Baso # (Auto) (0.0-0.2) X10*3/uL Abs Immat Gran (auto) (0.00-0.03) X10*3/uL Absolute Neuts (auto) (2.0-8.3) x10*3/uL Absolute Nucleated RBC (0.0-0.012) X10*3/uL Nucleated RBC % (auto) (0.0-0.2) /100WBC Sodium (135-145) mmol/L Potassium (3.3-5.1) mmol/L Chloride (96-108) mmol/L Carbon Dioxide (22-29) mmol/L Anion Gap (12-20) BUN (9-16) mg/dL Creatinine (0.5-1.4) mg/dL Estim Creat Clear Calc Estimated GFR Random Glucose (60-115) mg/dL Calcium (8.4-10.2) mg/dL Total Bilirubin (0.0-1.0) mg/dL AST (5-31) U/L ALT (0-31) U/L Alkaline Phosphatase (39-117) U/L Total Protein (6.5-8.0) g/dL Albumin (3.5-5.0) g/dL COVID-19 (MARK) Negative (Negative) COVID-19 Clin Com See Note Influenza Type A (RUY) (Negative) Influenza Type B (RUY) (Negative) Influenza A & B Note <HARDIK Cotton - Last Filed: 11/25/22 19:35> Lab Results 11/25/22 11/25/22 11/25/22 Range/Units 20:31 20:31 20:31 WBC 6.4 (4.8-10.8) X10*3/uL RBC 4.88 (4.20-5.50) X10*6/uL Hgb 13.9 (12.0-16.0) g/dl Hct 41.6 (37.0-47.0) % MCV 85.2 (80.0-98.0) fL MCH 28.5 (27.0-33.0) pg MCHC 33.4 (31.0-35.0) g/dl RDW 12.7 (11.0-16.0) % Plt Count 210 (160-400) X10*3/uL MPV 9.9 (9.4-12.3) fL Immature Gran % (Auto) 0.3 (0.0-0.4) % Neut % (Auto) 54.0 (45-73) % Lymph % (Auto) 24.9 (20-40) % Childress % (Auto) 14.6 H (2-11) % Eos % (Auto) 5.6 H (0-4) % Baso % (Auto) 0.6 (0-2) % Lymph # (Auto) 1.6 (1.2-4.9) X10*3/uL Childress # (Auto) 0.9 (0.1-1.2) X10*3/uL Eos # (Auto) 0.4 (0.0-0.4) X10*3/uL Baso # (Auto) 0.0 (0.0-0.2) X10*3/uL Abs Immat Gran (auto) 0.02 (0.00-0.03) X10*3/uL Absolute Neuts (auto) 3.5 (2.0-8.3) x10*3/uL Absolute Nucleated RBC 0.000 (0.0-0.012) X10*3/uL Nucleated RBC % (auto) 0.0 (0.0-0.2) /100WBC Sodium 139 (135-145) mmol/L Potassium 3.9 (3.3-5.1) mmol/L Chloride 101 (96-108) mmol/L Carbon Dioxide 26 (22-29) mmol/L Anion Gap 16 (12-20) BUN 17 H (9-16) mg/dL Creatinine 0.69 (0.5-1.4) mg/dL Estim Creat Clear Calc 98.3 Estimated GFR > 60 Random Glucose 102 (60-115) mg/dL Calcium 9.1 (8.4-10.2) mg/dL Total Bilirubin 0.4 (0.0-1.0) mg/dL AST 21 (5-31) U/L ALT 16 (0-31) U/L Alkaline Phosphatase 64 (39-117) U/L Total Protein 6.9 (6.5-8.0) g/dL Albumin 3.9 (3.5-5.0) g/dL COVID-19 (MARK) (Negative) COVID-19 Clin Com Influenza Type A (RUY) Negative (Negative) Influenza Type B (RUY) Negative (Negative) Influenza A & B Note See Note 11/25/22 Range/Units 20:31 WBC (4.8-10.8) X10*3/uL RBC (4.20-5.50) X10*6/uL Hgb (12.0-16.0) g/dl Hct (37.0-47.0) % MCV (80.0-98.0) fL MCH (27.0-33.0) pg MCHC (31.0-35.0) g/dl RDW (11.0-16.0) % Plt Count (160-400) X10*3/uL MPV (9.4-12.3) fL Immature Gran % (Auto) (0.0-0.4) % Neut % (Auto) (45-73) % Lymph % (Auto) (20-40) % Childress % (Auto) (2-11) % Eos % (Auto) (0-4) % Baso % (Auto) (0-2) % Lymph # (Auto) (1.2-4.9) X10*3/uL Childress # (Auto) (0.1-1.2) X10*3/uL Eos # (Auto) (0.0-0.4) X10*3/uL Baso # (Auto) (0.0-0.2) X10*3/uL Abs Immat Gran (auto) (0.00-0.03) X10*3/uL Absolute Neuts (auto) (2.0-8.3) x10*3/uL Absolute Nucleated RBC (0.0-0.012) X10*3/uL Nucleated RBC % (auto) (0.0-0.2) /100WBC Sodium (135-145) mmol/L Potassium (3.3-5.1) mmol/L Chloride (96-108) mmol/L Carbon Dioxide (22-29) mmol/L Anion Gap (12-20) BUN (9-16) mg/dL Creatinine (0.5-1.4) mg/dL Estim Creat Clear Calc Estimated GFR Random Glucose (60-115) mg/dL Calcium (8.4-10.2) mg/dL Total Bilirubin (0.0-1.0) mg/dL AST (5-31) U/L ALT (0-31) U/L Alkaline Phosphatase (39-117) U/L Total Protein (6.5-8.0) g/dL Albumin (3.5-5.0) g/dL COVID-19 (MARK) Negative (Negative) COVID-19 Clin Com See Note Influenza Type A (RUY) (Negative) Influenza Type B (RUY) (Negative) Influenza A & B Note <Alphonse Lakisha - Last Filed: 11/25/22 23:17> Discharge Plan Discharge Clinical Impression: Asthma with acute exacerbation <HARDIK Cotton - Last Filed: 11/25/22 19:35> Patient Disposition: Home, Self-Care <HARDIK Cotton - Last Filed: 11/25/22 19:35> Instructions: Asthma (ED) <HARDIK Cotton - Last Filed: 11/25/22 19:35> Additional Instructions: Prednisone 40 mg daily for the next 5 days. Use your albuterol inhaler as needed Follow-up with your primary doctor Your chest x-ray was clear. Your viral swab was negative <HARDIK Cotton - Last Filed: 11/25/22 19:35> Prescriptions: New prednisone 20 mg tablet 40 mg PO DAILY Qty: 10 0RF albuterol sulfate 1.25 mg/3 mL solution for nebulization 1.25 mg inhalation Q4-6H PRN (Reason: shortness of breath or wheezing) Qty: 90 0RF No Action albuterol sulfate 90 mcg/actuation HFA aerosol inhaler 2 puff inhalation Q4-6H PRN (Reason: shortness of breath or wheezing) Qty: 6.7 0RF fluticasone propionate [Flonase Allergy Relief] 50 mcg/actuation spray,suspension 2 spray intranasal DAILY Qty: 16 0RF Rx Instructions: administer into each nostril hydrochlorothiazide 25 mg tablet 25 mg PO DAILY atenolol 50 mg tablet 50 mg PO DAILY Stelara 45 mg/0.5 mL syringe 45 mg subcut Q12W levothyroxine 75 mcg tablet 75 mcg PO DAILY bisacodyl [Dulcolax (bisacodyl)] 5 mg tablet,delayed release (DR/EC) 10 mg PO ONCE 1 Days Qty: 2 0RF Rx Instructions: take 2 tabs at noon the day before your colonoscopy polyethylene glycol 3350 [Miralax] 17 gram/dose powder 238 g PO ONCE Qty: 238 0RF Rx Instructions: As directed by gastroenterology department at [facility] polyethylene glycol 3350 [Miralax] 17 gram/dose powder 17 g PO DAILY Qty: 510 2RF losartan 100 mg tablet 100 mg PO DAILY <HARDIK Cotton - Last Filed: 11/25/22 19:35>
[2022-11-25 19:32] VITALS: BP 136/87; PULSE 95; RESP 18; TEMP 36.6; O2SAT 97; BMI 40.6
[2022-11-25 20:37] LABS: MANUAL DIFF FLAG NO
[2022-11-25 20:48] LABS: Basophils Percent Auto 0.6 % (0-2); Eosinophils Absolute Auto 0.4 X10*3/uL (0.0-0.4); Eosinophils Percent Auto 5.6 % (0-4); Hematocrit 41.6 % (37.0-47.0); Hemoglobin 13.9 g/dl (12.0-16.0); Imm Gran Abs Auto 0.02 X10*3/uL (0.00-0.03); Imm Gran Pct Auto 0.3 % (0.0-0.4); Lymphocytes Absolute Auto 1.6 X10*3/uL (1.2-4.9); Lymphocytes Percent Auto 24.9 % (20-40); Mean Corpuscular HGB Conc 33.4 g/dl (31.0-35.0); Mean Corpuscular Hemoglobin 28.5 pg (27.0-33.0); Mean Corpuscular Volume 85.2 fL (80.0-98.0); Mean Platelet Volume 9.9 fL (9.4-12.3); Monocytes Absolute Auto 0.9 X10*3/uL (0.1-1.2); Monocytes Percent Auto 14.6 % (2-11); Neutrophils Absolute Auto 3.5 x10*3/uL (2.0-8.3); Platelet Count 210 X10*3/uL (160-400); Red Blood Count 4.88 X10*6/uL (4.20-5.50); Red Cell Distribution Width 12.7 % (11.0-16.0); White Blood Count 6.4 X10*3/uL (4.8-10.8)
[2022-11-25 20:51] LABS: COVID-19 Test Negative (Negative); IDNOW Serial# 08D9AD1C
[2022-11-25 20:53] LABS: IDNOW Serial# BCCEAD1C; Influenza A Negative (Negative); Influenza B2 Negative (Negative)
[2022-11-25 21:00] LABS: Alanine Aminotransferase 16 U/L (0-31); Albumin Level 3.9 g/dL (3.5-5.0); Alkaline Phosphatase 64 U/L (39-117); Anion Gap 16 (12-20); Aspartate Amino Transferase 21 U/L (5-31); Bilirubin Total 0.4 mg/dL (0.0-1.0); Blood Urea Nitrogen 17 mg/dL (9-16); Calcium 9.1 mg/dL (8.4-10.2); Carbon Dioxide 26 mmol/L (22-29); Chloride 101 mmol/L (96-108); Creatinine Clr Calc Pharmacy 98.3; Estimated Glomerular Filt Rate > 60; Glucose Random 102 mg/dL (60-115); Potassium 3.9 mmol/L (3.3-5.1); Sodium 139 mmol/L (135-145); Total Protein 6.9 g/dL (6.5-8.0)
[2022-11-25 21:35] VITALS: BP 131/81; PULSE 80; RESP 20; TEMP 37; O2SAT 96
--- NOTE | 2022-11-25 22:49 | PC.NURSE ---
pt resting quietly in exam room at this time, vss, call escobar within reach
--- NOTE | 2022-11-25 23:23 | PC.NURSE ---
Took over care at 11:00p, Reviewed discharge instruction with pt, pt verbalized understanding. no sign of respiratory distress, pt able to speak in full sentences.
== END 2022-11-25 23:25 | disposition home or self-care (01) ==
PROVIDERS: Physician Assistant; Emergency Provider Emergency Medicine Emergency Medical Services; PCP Internal Medicine
DX: J45.901 Unspecified asthma with (acute) exacerbation (principal); Z20.822 Contact with and (suspected) exposure to COVID-19; Z20.828 Contact with and (suspected) exposure to other viral communicable diseases; Z79.899 Other long term (current) drug therapy
CPT/HCPCS: 71045; 80053; 85025; 87502; 87635; 99283

== ENCOUNTER 2022-11-30 14:17 | Outpatient (REF) | payer OTHER, SELFPAY ==
--- NOTE | ~2022-11-30 | MM_ITS ---
EXAMINATION: MM SCREENING DIGITAL BREAST TOMOSYNTHESIS, BILATERAL CLINICAL INFORMATION: Screening. Asymptomatic. The lifetime risk of breast cancer based on the Tyrer-Cuzick Model is 22%. COMPARISON: Mammography: 11/25/2021, 10/01/2020, 06/06/2019 TECHNIQUE: Digital breast tomosynthesis is performed in both the craniocaudal and mediolateral oblique views along with computer-aided detection (CAD). Synthesized 2D images are generated from the tomosynthesis. FINDINGS: There are scattered areas of fibroglandular density (ACR BI-RADS breast composition Category b). There are no significant masses, abnormal calcifications, or other abnormalities. No architectural abnormality or developing density or significant change from prior studies. The axilla and skin contours are unremarkable. MM/MM tomosynthesis screening BI IMPRESSION: No mammographic evidence of malignancy. ASSESSMENT: BI-RADS 1: Negative RECOMMENDATION: Routine annual mammography screening. This patient's information was entered into a reminder system with a target due date for their next mammogram.
== END 2022-11-30 14:18 | disposition home or self-care (01) ==
LOC: HO.MAMMO 14:17
PROVIDERS: Visit Provider Internal Medicine
DX: Z12.31 Encounter for screening mammogram for malignant neoplasm of breast (principal)
CPT/HCPCS: 77063; 77067

== ENCOUNTER 2023-06-17 08:12 | Outpatient (REF) | payer OTHER, SELFPAY ==
[2023-06-17 14:28] LABS: MANUAL DIFF FLAG NO
[2023-06-17 14:34] LABS: Basophils Absolute Auto 0.1 X10*3/uL (0.0-0.2); Basophils Percent Auto 0.8 % (0-2); Eosinophils Absolute Auto 0.4 X10*3/uL (0.0-0.4); Eosinophils Percent Auto 5.2 % (0-4); Hematocrit 45.5 % (37.0-47.0); Hemoglobin 14.6 g/dl (12.0-16.0); Imm Gran Abs Auto 0.03 X10*3/uL (0.00-0.03); Imm Gran Pct Auto 0.4 % (0.0-0.4); Lymphocytes Absolute Auto 2.5 X10*3/uL (1.2-4.9); Lymphocytes Percent Auto 32.8 % (20-40); Mean Corpuscular HGB Conc 32.1 g/dl (31.0-35.0); Mean Corpuscular Hemoglobin 29.1 pg (27.0-33.0); Mean Corpuscular Volume 90.6 fL (80.0-98.0); Mean Platelet Volume 11.3 fL (9.4-12.3); Monocytes Absolute Auto 0.7 X10*3/uL (0.1-1.2); Monocytes Percent Auto 9.8 % (2-11); Neutrophils Absolute Auto 3.9 x10*3/uL (2.0-8.3); Platelet Count 254 X10*3/uL (160-400); Red Blood Count 5.02 X10*6/uL (4.20-5.50); Red Cell Distribution Width 13.4 % (11.0-16.0); White Blood Count 7.6 X10*3/uL (4.8-10.8)
[2023-06-17 14:46] LABS: Anion Gap 12 (12-20); Blood Urea Nitrogen 24 mg/dL (9-16); Carbon Dioxide 27 mmol/L (22-29); Chloride 104 mmol/L (96-108); Estimated Glomerular Filt Rate > 60; Glucose Fasting 75 mg/dL (60-99); Potassium 4.2 mmol/L (3.3-5.1); Sodium 139 mmol/L (135-145)
[2023-06-17 15:04] LABS: TSH reflex Free T4 3.66 uIU/mL (0.32-4.0)
== END 2023-06-17 08:13 | disposition home or self-care (01) ==
LOC: HO.CHCLDS 08:12
PROVIDERS: Visit Provider Internal Medicine
DX: R23.2 Flushing (principal)
CPT/HCPCS: 36415; 80048; 84443; 85025

== ENCOUNTER 2023-07-17 18:18 | Emergency (ER) | payer OTHER, SELFPAY ==
[2023-07-17 18:23] VITALS: BP 129/81; PULSE 83; RESP 18; TEMP 36.3; O2SAT 99; BMI 36.0
--- NOTE | 2023-07-17 19:12 | ED_ITS ---
HPI - Extremity Problem General Chief complaint: Extremity Injury, Upper Stated complaint: shoulder pain x2 days Time Seen by Provider: 07/17/23 19:06 Source: patient, RN notes reviewed and old records reviewed Mode of arrival: ambulatory Limitations: no limitations History of Present Illness HPI Narrative: 48-year-old female presents for evaluation of right shoulder pain. Patient reports that she has chronic pain to her shoulder. 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 She did not fall on the shoulder or arm No chest pain or back pain No other complaints or concerns at this time Related Data Home Medications Medication Instructions Recorded Confirmed atenolol 50 mg tablet 50 mg PO DAILY 09/08/22 03/17/23 hydrochlorothiazide 25 mg tablet 25 mg PO DAILY 09/08/22 03/17/23 levothyroxine 75 mcg tablet 75 mcg PO DAILY 09/08/22 03/17/23 ustekinumab 45 mg/0.5 mL 45 mg subcut Q12W 09/08/22 03/17/23 subcutaneous syringe (Stelara) losartan 100 mg tablet 100 mg PO DAILY 09/14/22 03/17/23 Previous Rx's Medication Instructions Recorded albuterol sulfate 90 mcg/actuation 2 puff inhalation Q4-6H PRN 03/12/21 aerosol inhaler shortness of breath or wheezing #6.7 grams fluticasone propionate 50 2 spray intranasal DAILY #16 grams 03/12/21 mcg/actuation nasal spray,suspension (Flonase Allergy Relief) bisacodyl 5 mg tablet,delayed 10 mg (2 x 5 mg) PO ONCE 1 day #2 09/08/22 release (Dulcolax (bisacodyl)) tabs polyethylene glycol 3350 17 17 g PO DAILY #510 grams 09/08/22 gram/dose oral powder (Miralax) polyethylene glycol 3350 17 238 g PO ONCE #238 grams 09/08/22 gram/dose oral powder (Miralax) albuterol sulfate 1.25 mg/3 mL 1.25 mg (3 mL) inhalation Q4-6H 11/25/22 solution for nebulization PRN shortness of breath or wheezing #90 mL lidocaine 5 % topical patch 1 patch topical DAILY #15 ea 07/17/23 naproxen 500 mg tablet 500 mg PO BID PRN pain #20 tabs 07/17/23 Allergies Allergy/AdvReac Type Severity Reaction Status Date / Time dipyrone [DIPYRONE] Allergy Unknown UNKNOWN Verified 07/17/23 18:22 pork derived (porcine) Allergy Unknown Unknown Verified 07/17/23 18:22 blood pressure medication Allergy Unknown Unknown Uncoded 03/17/23 10:37 Review of Systems Constitutional: Constitutional: Denies chills, Denies fever(s) and Denies headache(s) ENT: Denies headache(s) Cardiovascular: Cardiovascular: Denies chest pain and Denies dyspnea Respiratory: Respiratory: Denies cough and Denies dyspnea Gastrointestinal: Gastrointestinal: Denies abdominal pain Musculoskeletal: Musculoskeletal: Denies back pain, Denies myalgias, Reports arthralgias, Reports joint swelling and Reports limited range of motion Integumentary/Breasts: Skin/Breast: Denies rash Neurologic: Denies headache(s) [facility] Past Medical History Medical History (Updated 07/17/23 @ 19:17 by Alphonse Banuelos) Sleep apnea Hypothyroidism HTN (hypertension) Asthma Surgical History (Updated 03/17/23 @ 10:35 by Pao Fuentes RN) Surgical history unknown Family History Family History Mother Heart attack Obesity Hypertension Depression Father Heart attack Diabetes Hypertension Brother Heart attack Social History Social History Alcohol intake: never Patient Tobacco Use Status: Never used Tobacco Smoked in Last 30 Days: No Use of substances other than those prescribed or required for medical reasons: No Patient : No Physical Exam Vital Signs: Vital Signs: Last Vital Signs Temp 97.4 F 07/17/23 18:23 Pulse 83 07/17/23 18:23 Resp 18 07/17/23 18:23 BP 129/81 07/17/23 18:23 Pulse Ox 99 07/17/23 18:23 O2 Del Method Room Air 07/17/23 18:23 BMI result Body Mass Index 36.0 Const: General: healthy appearing, comfortable, no acute distress, alert and awake Nutritional Appearance: well nourished Orientation/consciousness: patient oriented x3 HEENT: Head: Yes normocephalic and Yes atraumatic Eyes: Eyelids: Yes eyelids normal Conjunctivae: conjunctivae normal Sclerae: sclerae normal Corneas: corneas normal Pupils: Equal, round and reactive pupils present EOM: EOMs intact bilaterally Neck: Neck: Yes full ROM Resp: Effort & Inspection: normal respiratory effort, able to speak in complete sentences and not labored GI: Inspection: No distended Palpation (GI): Soft to palpation, not firm, nontender, no guarding and not rigid Skin: General skin exam: elasticity normal Neuro: General: patient oriented x3 Cranial nerves: Yes Equal, round and reactive pupils present and Yes Bilaterally intact EOM present Cognition (Neuro): normal cognition Extrem: Other: There is no visual deformity to the right upper extremity. She is tender globally to the right shoulder for the anterior and lateral acromio-clavicular joint. No overlying skin changes, erythema. She does have slightly reduced range of motion of the right shoulder Medical Decision Making Medical Decision Making MDM Narrative: 48-year-old female presents for evaluation acute on chronic right shoulder pain. She has an overuse injury. She reports having had previous x-rays many times of the right shoulder. I do not see any indication for further emergent imaging.. She has no chest pain or back pain to warrant further workup at this time Differential Diagnosis Differential Diagnoses: The differential diagnosis associated with the presentation includes Right shoulder bursitis Shoulder pain Tendinitis Calcific tendinitis Arthritis Discharge Plan Discharge Clinical Impression: Acute shoulder pain Patient Disposition: Home, Self-Care Instructions: Shoulder Pain (ED) Additional Instructions: Use naproxen needed for pain. May use lidocaine patches to the area as well to help with discomfort. You need to avoid excessive movements with the right shoulder to allow it to heal Follow-up with your primary doctor Prescriptions: New naproxen 500 mg tablet 500 mg PO BID PRN (Reason: pain) Qty: 20 0RF lidocaine 5 % adhesive patch,medicated 1 patch topical DAILY Qty: 15 0RF Rx Instructions: leave on most painful area for up to 12 hrs No Action albuterol sulfate 90 mcg/actuation HFA aerosol inhaler 2 puff inhalation Q4-6H PRN (Reason: shortness of breath or wheezing) Qty: 6.7 0RF fluticasone propionate [Flonase Allergy Relief] 50 mcg/actuation spray,suspension 2 spray intranasal DAILY Qty: 16 0RF Rx Instructions: administer into each nostril albuterol sulfate 1.25 mg/3 mL solution for nebulization 1.25 mg inhalation Q4-6H PRN (Reason: shortness of breath or wheezing) Qty: 90 0RF hydrochlorothiazide 25 mg tablet 25 mg PO DAILY atenolol 50 mg tablet 50 mg PO DAILY Stelara 45 mg/0.5 mL syringe 45 mg subcut Q12W levothyroxine 75 mcg tablet 75 mcg PO DAILY bisacodyl [Dulcolax (bisacodyl)] 5 mg tablet,delayed release (DR/EC) 10 mg PO ONCE 1 Days Qty: 2 0RF Rx Instructions: take 2 tabs at noon the day before your colonoscopy polyethylene glycol 3350 [Miralax] 17 gram/dose powder 238 g PO ONCE Qty: 238 0RF Rx Instructions: As directed by gastroenterology department at [facility] polyethylene glycol 3350 [Miralax] 17 gram/dose powder 17 g PO DAILY Qty: 510 2RF losartan 100 mg tablet 100 mg PO DAILY
[2023-07-17] MEDS: Ketorolac Tromethamine 30 MG/ML VIAL IM (19:25)
== END 2023-07-17 20:14 | disposition home or self-care (01) ==
PROVIDERS: Emergency Provider Emergency Medicine
DX: M25.511 Pain in right shoulder (principal)
CPT/HCPCS: 96372; 99284; J1885

== ENCOUNTER 2023-08-18 19:51 | Emergency (ER) | payer OTHER, SELFPAY ==
--- NOTE | ~2023-08-18 | XR_ITS ---
EXAMINATION: XR CHEST 2 VIEWS CLINICAL INFORMATION: Cough. COMPARISON: Prior chest radiographs, most recently 11/25/2022. TECHNIQUE: Frontal and lateral views of the chest were obtained. FINDINGS: The heart, great vessels, pulmonary vasculature and mediastinum are normal. The lungs show no focal infiltrate, effusion or pneumothorax. At the lateral left base, a 1.0 cm nodule is newly appreciated. There is no acute osseous abnormality. XR/XR chest 2V IMPRESSION: 1. No focal infiltrate or congestive heart failure is seen. 2. A 1.0 cm lateral left base nodule is newly seen on the frontal view. Recommend further evaluation with apical lordotic and oblique views, with nipple markers applied. Should the finding persist, CT evaluation may be considered.
[2023-08-18 20:06] VITALS: BP 135/88; PULSE 90; RESP 18; TEMP 36.9; O2SAT 99; BMI 36.0
--- NOTE | 2023-08-18 20:06 | ED.GENADULT ---
HPI - General Adult General Chief complaint: Upper Respiratory Symptoms Stated complaint: cough, upper back pain Time Seen by Provider: 08/18/23 21:51 Source: patient Mode of arrival: ambulatory Limitations: no limitations History of Present Illness HPI narrative: Patient comes to emergency room complaining of cough and asthma exacerbation. Patient states that her sister tested positive for influenza. Patient states that she has been using her inhaler more frequent than usual. States she has good results with her inhaler. Patient is concerned that she may have pneumonia as she is prone to it. Patient denies any chest pain. No shortness of breath at this time. Subjective fever and chills at home. Taking Tylenol for her symptoms Related Data Home Medications Medication Instructions Recorded Confirmed atenolol 50 mg tablet 50 mg PO DAILY 09/08/22 03/17/23 hydrochlorothiazide 25 mg tablet 25 mg PO DAILY 09/08/22 03/17/23 levothyroxine 75 mcg tablet 75 mcg PO DAILY 09/08/22 03/17/23 ustekinumab 45 mg/0.5 mL 45 mg subcut Q12W 09/08/22 03/17/23 subcutaneous syringe (Stelara) losartan 100 mg tablet 100 mg PO DAILY 09/14/22 03/17/23 Previous Rx's Medication Instructions Recorded albuterol sulfate 90 mcg/actuation 2 puff inhalation Q4-6H PRN 03/12/21 aerosol inhaler shortness of breath or wheezing #6.7 grams fluticasone propionate 50 2 spray intranasal DAILY #16 grams 03/12/21 mcg/actuation nasal spray,suspension (Flonase Allergy Relief) bisacodyl 5 mg tablet,delayed 10 mg (2 x 5 mg) PO ONCE 1 day #2 09/08/22 release (Dulcolax (bisacodyl)) tabs polyethylene glycol 3350 17 17 g PO DAILY #510 grams 09/08/22 gram/dose oral powder (Miralax) polyethylene glycol 3350 17 238 g PO ONCE #238 grams 09/08/22 gram/dose oral powder (Miralax) albuterol sulfate 1.25 mg/3 mL 1.25 mg (3 mL) inhalation Q4-6H 11/25/22 solution for nebulization PRN shortness of breath or wheezing #90 mL lidocaine 5 % topical patch 1 patch topical DAILY #15 ea 07/17/23 naproxen 500 mg tablet 500 mg PO BID PRN pain #20 tabs 07/17/23 albuterol sulfate 90 mcg/actuation 2 puff inhalation Q4-6H PRN 08/18/23 aerosol inhaler shortness of breath or wheezing #8.5 grams prednisone 50 mg tablet 50 mg PO DAILY #4 tabs 08/18/23 Allergies Allergy/AdvReac Type Severity Reaction Status Date / Time dipyrone [DIPYRONE] Allergy Unknown UNKNOWN Verified 08/18/23 20:06 pork derived (porcine) Allergy Unknown Unknown Verified 08/18/23 20:06 blood pressure medication Allergy Unknown Unknown Uncoded 03/17/23 10:37 Review of Systems Review of Systems: Constitutional : No Weight loss, complaining of subjective Fever, No Chills, No Night Sweats, No Fatigue, No Malaise ENT/Mouth : No Hearing loss, No Ear Pain, No Nasal Congestion, No Sinus Pain, No Hoarseness, No sore throat, No Rhinorrhea, No Swallowing Difficulty Eyes: No Eye Pain, No Swelling, No Redness, No Foreign Body, No Discharge, No Vision Changes Cardiovascular : No Chest Pain, No SOB, No Dyspnea on Exertion, No Orthopnea, No Edema, No Palpitations Respiratory : complaining of cough, wheezing and shortness of breath with asthma exacerbations no shortness of breath at this time Gastrointestinal : No Nausea, No Vomiting, No Diarrhea, No Constipation, No abdominal Pain, No Hematochezia, No Melena Genitourinary : no irregular bleeding, No Dysuria, No Urinary Frequency, No Hematuria, No Urinary Incontinence, No Urgency, No Flank Pain, No Urinary Flow Changes, No Hesitancy Musculoskeletal : No joint pain, No Myalgias, No Joint Swelling Skin : No Skin Lesions, No rash Neuro : No Weakness, No Numbness, No Paresthesias, No Loss of Consciousness, No Dizziness, No Headache Psych : No Anxiety/Panic, No Depression, No SI/HI/AH/VH, No Social Issues, Heme/Lymph: No Bruising, No Bleeding,No Lymphadenopathy Endocrine : No Polyuria, No Polydipsia, No Temperature Intolerance PMFSH Past Medical History Onset Date is defined in the Problem List Problems that require an onset date and time if occurred within 24 hrs of arrival to the ED Aortic Dissection and Rupture; Neurologic impairment; Cardiopulmonary Arrest; Endotracheal Intubation; Insertion or Replacement of Mechanical Circulatory Assist Device Medical History Sleep apnea Hypothyroidism HTN (hypertension) Asthma Surgical History (Updated 03/17/23 @ 10:35 by Pao Fuentes RN) Surgical history unknown Family History Family History Mother Heart attack Obesity Hypertension Depression Father Heart attack Diabetes Hypertension Brother Heart attack Social History Social History Alcohol intake: never Patient Tobacco Use Status: Never used Tobacco Advance Directives: No Advance Directives Information Provided: No Physical Exam ED Vital Signs: Vital Signs - 24 hr 08/18/23 20:06 Temperature 98.4 F Pulse Rate 90 Respiratory Rate 18 Blood Pressure 135/88 Pulse Oximetry 99 Oxygen Delivery Method Room Air BMI result Body Mass Index 36.0 Const Other: Appearance: Alert. Oriented X3. No acute distress. Well-appearing Eyes: Pupils equal, round and reactive to light. ENT: Pharynx normal. Neck: Normal inspection. Neck supple. No lymph nodes noted. No crepitus CVS: Normal heart rate and rhythm. Pulses normal. Normal S1 and S2 Respiratory: No respiratory distress. Breath sounds normal. No Wheezing. No rales Abdomen: Soft and nontender. No rigidity. No distention. Skin: Skin warm and dry. Normal skin color. Normal skin turgor. Extremities: No lower extremity edema. No Lacerations. No Rash Neuro: Oriented X 3. No motor deficit. No sensory deficit. Moving all extremities. No slurred speech. CN 2 through 12 grossly intact Psych: calm, cooperative, normal affect Course Course Course Narrative: RME:?48 yo female hx of asthma, bronchitis, and pneumonia here for eval of coughing, body aches, and fatigue x4 days. using albuterol inhaler at home with some relief. took tylenol 2 days ago when she felt feverish. no documented temp. sister at home has the flu. lungs cta b/l. afebrile. serology and cxr ordered. Full HPI, ROS and PE to be performed by the primary ED provider. Medical Decision Making Medical Decision Making MDM Narrative: -my interpretation of chest x-ray: No pneumonia. -radiology report shows a 1 cm lateral base nodule. Discussed with the patient to follow-up with her primary care physician, as she may need repeat x-rays or a CT scan -patient given p.o. prednisone. At this time patient not wheezing, albuterol not indicated Differential Diagnosis Differential Diagnoses: The differential diagnosis associated with the presentation includes (Asthma, COVID, pneumonia, influenza, viral URI) Lab Data MDM Lab Attestation statement: I reviewed the patient's lab results. Labs: Lab Results 08/18/23 Range/Units 20:18 COVID-19 (MARK) Negative (Negative) COVID-19 Clin Com See Note Influenza Type A (RUY) Negative (Negative) Influenza Type B (RUY) Negative (Negative) Influenza A & B Note See Note Independent Interpretation I performed an independent interpretation of an: Plain X-Ray Interpretation: 1. No focal infiltrate or congestive heart failure is seen. 2. A 1.0 cm lateral left base nodule is newly seen on the frontal view. Recommend further evaluation with apical lordotic and oblique views, with nipple markers applied. Should the finding persist, CT evaluation may be considered. Discharge Plan Discharge Clinical Impression: Acute viral bronchitis Patient Disposition: Home, Self-Care Instructions: Acute Bronchitis (ED) Additional Instructions: Your chest x-ray shows a nodule on the left side of the chest. Move nodules are benign. However, police have close follow-up with her primary care physician as you may need further x-rays or CT scans or other imaging. Please follow-up with your primary care physician tomorrow. If you have any worsening or new symptoms, please return to the emergency room or call 911 Prescriptions: New prednisone 50 mg tablet 50 mg PO DAILY Qty: 4 0RF albuterol sulfate 90 mcg/actuation HFA aerosol inhaler 2 puff inhalation Q4-6H PRN (Reason: shortness of breath or wheezing) Qty: 8.5 0RF No Action albuterol sulfate 90 mcg/actuation HFA aerosol inhaler 2 puff inhalation Q4-6H PRN (Reason: shortness of breath or wheezing) Qty: 6.7 0RF fluticasone propionate [Flonase Allergy Relief] 50 mcg/actuation spray,suspension 2 spray intranasal DAILY Qty: 16 0RF Rx Instructions: administer into each nostril albuterol sulfate 1.25 mg/3 mL solution for nebulization 1.25 mg inhalation Q4-6H PRN (Reason: shortness of breath or wheezing) Qty: 90 0RF naproxen 500 mg tablet 500 mg PO BID PRN (Reason: pain) Qty: 20 0RF lidocaine 5 % adhesive patch,medicated 1 patch topical DAILY Qty: 15 0RF Rx Instructions: leave on most painful area for up to 12 hrs hydrochlorothiazide 25 mg tablet 25 mg PO DAILY atenolol 50 mg tablet 50 mg PO DAILY Stelara 45 mg/0.5 mL syringe 45 mg subcut Q12W levothyroxine 75 mcg tablet 75 mcg PO DAILY bisacodyl [Dulcolax (bisacodyl)] 5 mg tablet,delayed release (DR/EC) 10 mg PO ONCE 1 Days Qty: 2 0RF Rx Instructions: take 2 tabs at noon the day before your colonoscopy polyethylene glycol 3350 [Miralax] 17 gram/dose powder 238 g PO ONCE Qty: 238 0RF Rx Instructions: As directed by gastroenterology department at [facility] polyethylene glycol 3350 [Miralax] 17 gram/dose powder 17 g PO DAILY Qty: 510 2RF losartan 100 mg tablet 100 mg PO DAILY
[2023-08-18 20:56] LABS: COVID-19 Test Negative (Negative); IDNOW Serial# 08D9AD1C; IDNOW Serial# 152EDE1D; Influenza A Negative (Negative); Influenza B2 Negative (Negative)
--- NOTE | 2023-08-18 22:39 | PC.NURSE ---
verbal order by dr. pro for 50 mg prednisone as first time dose.
[2023-08-18] MEDS: predniSONE 10 MG TABLET 50 MG PO (22:50)
[2023-08-18 23:13] VITALS: PULSE 78; RESP 16; O2SAT 96
== END 2023-08-18 23:13 | disposition home or self-care (01) ==
PROVIDERS: Physician Assistant Medical; Emergency Provider Emergency Medicine; PCP Internal Medicine
DX: J20.8 Acute bronchitis due to other specified organisms (principal); I10 Essential (primary) hypertension; Z11.52 Encounter for screening for COVID-19
CPT/HCPCS: 71046; 87502; 87635; 99282; 99283

== ENCOUNTER 2023-08-31 16:39 | Outpatient (REF) | payer OTHER, SELFPAY ==
[2023-09-01 13:12] LABS: BV Int Neg Control Negative (Negative); BV Int Pos Control Positive (Positive)
== END 2023-08-31 16:40 | disposition home or self-care (01) ==
LOC: HO.CHCLNP 16:39
PROVIDERS: Visit Provider Advanced Practice Midwife
DX: N89.8 Other specified noninflammatory disorders of vagina (principal)
CPT/HCPCS: 87480; 87510; 87660; 88142

== ENCOUNTER 2023-09-28 09:11 | Outpatient (REF) | payer OTHER, SELFPAY ==
[2023-09-28 14:59] LABS: Blood Urea Nitrogen 19 mg/dL (9-16); Estimated Glomerular Filt Rate > 60
== END 2023-09-28 09:12 | disposition home or self-care (01) ==
LOC: HO.CHCLDS 09:11
PROVIDERS: Visit Provider Internal Medicine
DX: R91.1 Solitary pulmonary nodule (principal)
CPT/HCPCS: 36415; 82565; 84520

== ENCOUNTER 2023-11-22 08:28 | Outpatient (REF) | payer OTHER, SELFPAY ==
--- NOTE | ~2023-11-22 | CT_ITS ---
EXAMINATION: CT CHEST WITH CONTRAST CLINICAL INFORMATION: Pulmonary nodule. COMPARISON: Chest radiograph 08/18/2023: 1.0 cm lateral left base nodule is newly seen on the frontal view. Recommend further evaluation with apical lordotic and oblique views, with nipple markers applied. Should the finding persist, CT evaluation may be considered. TECHNIQUE: Multidetector volumetric CT imaging of the chest was obtained after the administration of 65 mL of Omnipaque 350 intravenous contrast without immediate adverse reactions. Axial MIP volume rendering provided. Sagittal and coronal reformatted images were obtained. This CT examination was performed using dose optimization techniques as appropriate, variously including the following: *Automated exposure control *Adjustment of mA and/or kV according to patient size (this includes techniques or standardized protocols for targeted exams where dose is matched to indication/reason for exam; i.e. extremities or head) *Use of iterative reconstruction technique DLP: 145 mGy-cm FINDINGS: LUNGS: There are a few scattered punctate calcified granulomas seen. The lungs are otherwise clear with no evidence of inflammation or concerning nodules. A corresponding abnormality to the finding on the chest radiograph is not seen. MEDIASTINUM: The mediastinum is normal. PLEURA: There is no pleural effusion. No pleural mass or thickening. AXILLA: No lymphadenopathy. UPPER ABDOMEN: Unremarkable. OSSEOUS STRUCTURES: Unremarkable. CT/CT chest w IV con IMPRESSION: 1. No significant abnormality is seen. A corresponding abnormality to the finding on the chest radiograph is not present. 2. Incidental note made of a few scattered punctate calcified granulomas. Fleischner guidelines were followed.
[2023-11-22] MEDS: iohexoL 350 MG/ML 100 ML INFUS..BTL 65 ML IV (09:21)
== END 2023-11-22 08:29 | disposition home or self-care (01) ==
LOC: HO.CT 08:28
PROVIDERS: PCP Internal Medicine; Visit Provider Internal Medicine
DX: R91.1 Solitary pulmonary nodule (principal)
CPT/HCPCS: 71260; Q9967

== ENCOUNTER 2023-12-02 14:18 | Outpatient (REF) | payer OTHER, SELFPAY | END 2023-12-02 14:19 | disposition home or self-care (01) | LOC: HO.MAMMO 14:18 | PROVIDERS: PCP Internal Medicine; Visit Provider Internal Medicine | DX: Z12.31 Encounter for screening mammogram for malignant neoplasm of breast (principal) | CPT/HCPCS: 77063; 77067 ==

== ENCOUNTER → 2023-12-02 14:30 | Outpatient (BNV) | payer OTHER, SELFPAY | PROVIDERS: PCP Internal Medicine; Visit Provider Radiology Diagnostic Radiology | DX: Z12.31 Encounter for screening mammogram for malignant neoplasm of breast (principal) | CPT/HCPCS: 77063; 77067 ==

== ENCOUNTER 2024-03-15 22:54 | Emergency (ER) | payer OTHER, SELFPAY ==
[2024-03-15 23:12] VITALS: BP 139/92; PULSE 78; RESP 20; TEMP 36.9; O2SAT 95; BMI 38.3
[2024-03-15 23:46] LABS: MANUAL DIFF FLAG NO
[2024-03-15 23:47] LABS: Basophils Percent Auto 0.4 % (0-2); Eosinophils Absolute Auto 0.3 X10*3/uL (0.0-0.4); Eosinophils Percent Auto 3.8 % (0-4); Hematocrit 39.9 % (37.0-47.0); Hemoglobin 13.5 g/dl (12.0-16.0); Imm Gran Abs Auto 0.02 X10*3/uL (0.00-0.03); Imm Gran Pct Auto 0.3 % (0.0-0.4); Lymphocytes Absolute Auto 2.3 X10*3/uL (1.2-4.9); Mean Corpuscular HGB Conc 33.8 g/dl (31.0-35.0); Mean Corpuscular Hemoglobin 29.2 pg (27.0-33.0); Mean Corpuscular Volume 86.2 fL (80.0-98.0); Mean Platelet Volume 9.9 fL (9.4-12.3); Monocytes Absolute Auto 0.8 X10*3/uL (0.1-1.2); Monocytes Percent Auto 10.6 % (2-11); Neutrophils Absolute Auto 3.9 x10*3/uL (2.0-8.3); Neutrophils Percent Auto 53.9 % (45-73); Platelet Count 220 X10*3/uL (160-400); Red Blood Count 4.63 X10*6/uL (4.20-5.50); Red Cell Distribution Width 12.9 % (11.0-16.0); White Blood Count 7.3 X10*3/uL (4.8-10.8)
[2024-03-16 00:05] LABS: Anion Gap 10 (12-20); Blood Urea Nitrogen 22 mg/dL (9-16); Calcium 8.8 mg/dL (8.4-10.2); Carbon Dioxide 32 mmol/L (22-29); Chloride 103 mmol/L (96-108); Creatinine Clr Calc Pharmacy 77.1; Estimated Glomerular Filt Rate > 60; Glucose Random 126 mg/dL (60-115); Potassium 3.9 mmol/L (3.3-5.1); Sodium 141 mmol/L (135-145)
--- NOTE | 2024-03-16 00:06 | PC.NURSE ---
pt checked on while in the waiting room no s/s of distress. pt talking in full sentences.
--- NOTE | 2024-03-16 02:03 | ED.ALLEREA ---
HPI - Allergic Reaction General Chief complaint: Allergic Reaction Stated complaint: allergic reaction to pork Time Seen by Provider: 03/16/24 01:53 Source: patient Mode of arrival: ambulatory Limitations: no limitations History of Present Illness ED Provider: Dr. Aida Woodard HPI narrative: Patient comes to the emergency room complaining of an allergic reaction after eating pork. Patient states that today she was at her sister's house, there was made on the table, patient took a piece of meat thinking was chicken, 8 the meat. Few minutes later patient started complaining of feeling itchiness around her hands. Then patient has spoke with her sister and confirmed that she had just eaten pork. This happened approximately 5 hours ago. Patient denies any difficulty breathing or swallowing, no shortness of breath. Patient states that she has had significant allergic reactions in the past to pork but this time it was not too bad. Related Data Home Medications ?Medication ?Instructions ?Recorded ?Confirmed atenolol 50 mg tablet 50 mg PO DAILY 09/08/22 03/17/23 hydrochlorothiazide 25 mg tablet 25 mg PO DAILY 09/08/22 03/17/23 levothyroxine 75 mcg tablet 75 mcg PO DAILY 09/08/22 03/17/23 ustekinumab 45 mg/0.5 mL 45 mg subcut Q12W 09/08/22 03/17/23 subcutaneous syringe (Stelara) losartan 100 mg tablet 100 mg PO DAILY 09/14/22 03/17/23 Previous Rx's ?Medication ?Instructions ?Recorded albuterol sulfate 90 mcg/actuation 2 puff inhalation Q4-6H PRN 03/12/21 aerosol inhaler shortness of breath or wheezing #6.7 grams fluticasone propionate 50 2 spray intranasal DAILY #16 grams 03/12/21 mcg/actuation nasal spray,suspension (Flonase Allergy Relief) bisacodyl 5 mg tablet,delayed 10 mg (2 x 5 mg) PO ONCE 1 day #2 09/08/22 release (Dulcolax (bisacodyl)) tabs polyethylene glycol 3350 17 17 g PO DAILY #510 grams 09/08/22 gram/dose oral powder (Miralax) polyethylene glycol 3350 17 238 g PO ONCE #238 grams 09/08/22 gram/dose oral powder (Miralax) albuterol sulfate 1.25 mg/3 mL 1.25 mg (3 mL) inhalation Q4-6H 11/25/22 solution for nebulization PRN shortness of breath or wheezing #90 mL lidocaine 5 % topical patch 1 patch topical DAILY #15 ea 07/17/23 naproxen 500 mg tablet 500 mg PO BID PRN pain #20 tabs 07/17/23 albuterol sulfate 90 mcg/actuation 2 puff inhalation Q4-6H PRN 08/18/23 aerosol inhaler shortness of breath or wheezing #8.5 grams prednisone 50 mg tablet 50 mg PO DAILY #4 tabs 08/18/23 diphenhydramine HCl 25 mg capsule 50 mg (2 x 25 mg) PO ONCE PRN 03/16/24 (Benadryl) allergic reaction #10 caps famotidine 40 mg tablet (Pepcid) 40 mg PO ONCE PRN allergic 03/16/24 reaction #5 tabs prednisone 50 mg tablet 50 mg PO ONCE PRN allergic 03/16/24 reaction #5 tabs Allergies Allergy/AdvReac Type Severity Reaction Status Date / Time dipyrone [DIPYRONE] Allergy Unknown UNKNOWN Verified 03/15/24 23:21 pork derived (porcine) Allergy Unknown Unknown Verified 03/15/24 23:21 blood pressure medication Allergy Unknown Unknown Uncoded 03/15/24 23:21 Review of Systems Review of Systems: Constitutional : No Weight loss, No Fever, No Chills, No Night Sweats, No Fatigue, No Malaise ENT/Mouth : No Hearing loss, No Ear Pain, No Nasal Congestion, No Sinus Pain, No Hoarseness, No sore throat, No Rhinorrhea, No Swallowing Difficulty Eyes: No Eye Pain, No Swelling, No Redness, No Foreign Body, No Discharge, No Vision Changes Cardiovascular : No Chest Pain, No SOB, No Dyspnea on Exertion, No Orthopnea, No Edema, No Palpitations Respiratory : No Cough, No Sputum, No Wheezing, No Smoke Exposure, No Dyspnea Gastrointestinal : No Nausea, No Vomiting, No Diarrhea, No Constipation, No abdominal Pain, No Hematochezia, No Melena Genitourinary : no irregular bleeding, No Dysuria, No Urinary Frequency, No Hematuria, No Urinary Incontinence, No Urgency, No Flank Pain, No Urinary Flow Changes, No Hesitancy Musculoskeletal : No joint pain, No Myalgias, No Joint Swelling Skin : Itching around the hands Neuro : No Weakness, No Numbness, No Paresthesias, No Loss of Consciousness, No Dizziness, No Headache Psych : No Anxiety/Panic, No Depression, No SI/HI/AH/VH, No Social Issues, Heme/Lymph: No Bruising, No Bleeding,No Lymphadenopathy Endocrine : No Polyuria, No Polydipsia, No Temperature Intolerance [facility] Past Medical History Medical History Sleep apnea Hypothyroidism HTN (hypertension) Asthma Surgical History (Updated 03/17/23 @ 10:35 by Pao Fuentes RN) Surgical history unknown Family History Family History Mother Heart attack Obesity Hypertension Depression Father Heart attack Diabetes Hypertension Brother Heart attack Social History Social History Alcohol intake: never Patient Tobacco Use Status: Never used Tobacco Advance Directives: No Advance Directives Information Provided: Yes Physical Exam ED Vital Signs: Vital Signs - 24 hr 03/15/24 23:12 Temperature 98.4 F Pulse Rate 78 Respiratory Rate 20 Blood Pressure 139/92 H Pulse Oximetry 95 Oxygen Delivery Method Room Air BMI result Body Mass Index 38.3 Const Other: Appearance: Alert. Oriented X3. No acute distress. Eyes: Pupils equal, round and reactive to light. ENT: Pharynx normal. Neck: Normal inspection. Neck supple. No lymph nodes noted. No crepitus CVS: Normal heart rate and rhythm. Pulses normal. Normal S1 and S2 Respiratory: No respiratory distress. Breath sounds normal. No Wheezing. No rales Abdomen: Soft and nontender. No rigidity. No distention. Skin: Skin warm and dry. Normal skin color. Normal skin turgor. Extremities: No lower extremity edema. No Lacerations. No Rash Neuro: Oriented X 3. No motor deficit. No sensory deficit. Moving all extremities. No slurred speech. CN 2 through 12 grossly intact Psych: calm, cooperative, normal affect Medical Decision Making Medical Decision Making MDM Narrative: -on physical exam, patient has no angioedema, no erythema, no hives. Patient's vitals completely normal. Patient states that she still feels a bit itchy she in the webs between her hands but otherwise she is asymptomatic. On physical exam patient does not have any signs of scabies. -patient was given p.o. diphenhydramine, famotidine and prednisone. 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 Differential Diagnosis Differential Diagnoses: The differential diagnosis associated with the presentation includes (Allergic reaction, hypersensitivity reaction) Lab Data 03/15/24 23:41 03/15/24 23:41 Labs: Lab Results 03/15/24 Range/Units 23:41 WBC 7.3 (4.8-10.8) X10*3/uL RBC 4.63 (4.20-5.50) X10*6/uL Hgb 13.5 (12.0-16.0) g/dl Hct 39.9 (37.0-47.0) % MCV 86.2 (80.0-98.0) fL MCH 29.2 (27.0-33.0) pg MCHC 33.8 (31.0-35.0) g/dl RDW 12.9 (11.0-16.0) % Plt Count 220 (160-400) X10*3/uL MPV 9.9 (9.4-12.3) fL Immature Gran % (Auto) 0.3 (0.0-0.4) % Neut % (Auto) 53.9 (45-73) % Lymph % (Auto) 31.0 (20-40) % [place] % (Auto) 10.6 (2-11) % Eos % (Auto) 3.8 (0-4) % Baso % (Auto) 0.4 (0-2) % Lymph # (Auto) 2.3 (1.2-4.9) X10*3/uL [place] # (Auto) 0.8 (0.1-1.2) X10*3/uL Eos # (Auto) 0.3 (0.0-0.4) X10*3/uL Baso # (Auto) 0.0 (0.0-0.2) X10*3/uL Abs Immat Gran (auto) 0.02 (0.00-0.03) X10*3/uL Absolute Neuts (auto) 3.9 (2.0-8.3) x10*3/uL Absolute Nucleated RBC 0.000 (0.0-0.012) X10*3/uL Nucleated RBC % (auto) 0.0 (0.0-0.2) /100WBC Sodium 141 (135-145) mmol/L Potassium 3.9 (3.3-5.1) mmol/L Chloride 103 (96-108) mmol/L Carbon Dioxide 32 H (22-29) mmol/L Anion Gap 10 L (12-20) BUN 22 H (9-16) mg/dL Creatinine 0.87 (0.5-1.4) mg/dL Estim Creat Clear Calc 77.1 Estimated GFR > 60 Random Glucose 126 H (60-115) mg/dL Calcium 8.8 (8.4-10.2) mg/dL Discharge Plan Discharge Clinical Impression: Allergic reaction Patient Disposition: Home, Self-Care Instructions: General Allergic Reaction (ED) Additional Instructions: Please follow-up with your primary care physician tomorrow. If you have any worsening or new symptoms, please return to the emergency room or call 911 Prescriptions: New diphenhydramine HCl [Benadryl] 25 mg capsule 50 mg PO ONCE PRN (Reason: allergic reaction) Qty: 10 0RF famotidine [Pepcid] 40 mg tablet 40 mg PO ONCE PRN (Reason: allergic reaction) Qty: 5 0RF prednisone 50 mg tablet 50 mg PO ONCE PRN (Reason: allergic reaction) Qty: 5 0RF No Action albuterol sulfate 90 mcg/actuation HFA aerosol inhaler 2 puff inhalation Q4-6H PRN (Reason: shortness of breath or wheezing) Qty: 6.7 0RF fluticasone propionate [Flonase Allergy Relief] 50 mcg/actuation spray,suspension 2 spray intranasal DAILY Qty: 16 0RF Rx Instructions: administer into each nostril albuterol sulfate 1.25 mg/3 mL solution for nebulization 1.25 mg inhalation Q4-6H PRN (Reason: shortness of breath or wheezing) Qty: 90 0RF naproxen 500 mg tablet 500 mg PO BID PRN (Reason: pain) Qty: 20 0RF lidocaine 5 % adhesive patch,medicated 1 patch topical DAILY Qty: 15 0RF Rx Instructions: leave on most painful area for up to 12 hrs prednisone 50 mg tablet 50 mg PO DAILY Qty: 4 0RF albuterol sulfate 90 mcg/actuation HFA aerosol inhaler 2 puff inhalation Q4-6H PRN (Reason: shortness of breath or wheezing) Qty: 8.5 0RF hydrochlorothiazide 25 mg tablet 25 mg PO DAILY atenolol 50 mg tablet 50 mg PO DAILY Stelara 45 mg/0.5 mL syringe 45 mg subcut Q12W levothyroxine 75 mcg tablet 75 mcg PO DAILY bisacodyl [Dulcolax (bisacodyl)] 5 mg tablet,delayed release (DR/EC) 10 mg PO ONCE 1 Days Qty: 2 0RF Rx Instructions: take 2 tabs at noon the day before your colonoscopy polyethylene glycol 3350 [Miralax] 17 gram/dose powder 238 g PO ONCE Qty: 238 0RF Rx Instructions: As directed by gastroenterology department at [facility] polyethylene glycol 3350 [Miralax] 17 gram/dose powder 17 g PO DAILY Qty: 510 2RF losartan 100 mg tablet 100 mg PO DAILY Print Language: Telugu
[2024-03-16] MEDS: diphenhydrAMINE HCL 25 MG CAPSULE 50 MG PO (02:12)
[2024-03-16] MEDS: predniSONE 20 MG TABLET 60 MG PO (02:12)
[2024-03-16] MEDS: Famotidine 20 MG TABLET PO (02:12)
[2024-03-16 02:16] VITALS: BP 133/89; PULSE 64; RESP 18; TEMP 37; O2SAT 96
[2024-03-16 02:19] VITALS: BP 133/89; PULSE 64; RESP 18; TEMP 37; O2SAT 96
== END 2024-03-16 02:21 | disposition home or self-care (01) ==
PROVIDERS: Emergency Provider Emergency Medicine; PCP Internal Medicine
DX: L23.9 Allergic contact dermatitis, unspecified cause (principal); Z79.899 Other long term (current) drug therapy
CPT/HCPCS: 36415; 80048; 85025; 99282; 99283

== ENCOUNTER 2024-05-09 08:17 | Outpatient (REF) | payer OTHER, SELFPAY ==
[2024-05-09 18:26] LABS: Alanine Aminotransferase 16 U/L (0-31); Albumin Level 3.9 g/dL (3.5-5.0); Alkaline Phosphatase 63 U/L (39-117); Anion Gap 10 (12-20); Aspartate Amino Transferase 14 U/L (5-31); Bilirubin Total 0.5 mg/dL (0.0-1.0); Blood Urea Nitrogen 20 mg/dL (9-16); Calcium 8.9 mg/dL (8.4-10.2); Carbon Dioxide 31 mmol/L (22-29); Chloride 103 mmol/L (96-108); Cholesterol 212 mg/dL (<200); Estimated Glomerular Filt Rate > 60; Glucose Random 87 mg/dL (60-115); HDL Cholesterol 56 mg/dL (>40); LDL Cholesterol Calculated 123 mg/dL (<100); Potassium 3.8 mmol/L (3.3-5.1); Sodium 140 mmol/L (135-145); Total Protein 6.6 g/dL (6.5-8.0); Triglycerides 169 mg/dL (<150)
[2024-05-09 18:40] LABS: TSH reflex Free T4 4.18 uIU/mL (0.32-4.0)
[2024-05-09 19:20] LABS: Free T4 (Free Thyroxine) 0.81 ng/dL (0.71-1.85)
[2024-05-10 05:14] LABS: Estimated Average Glucose 123 mg/dL; Hemoglobin A1C 148.7099 umol/L; Hemoglobin A1c % 5.9 % (<6.0)
== END 2024-05-09 08:18 | disposition home or self-care (01) ==
LOC: HO.CHCLDS 08:17
PROVIDERS: Visit Provider Internal Medicine
DX: E03.9 Hypothyroidism, unspecified (principal); E66.812 Obesity, class 2; E66.01 Morbid (severe) obesity due to excess calories; Z68.36 Body mass index [BMI] 36.0-36.9, adult
CPT/HCPCS: 36415; 80053; 80061; 83036; 84439; 84443

== ENCOUNTER 2024-05-14 20:23 | Emergency (ER) | payer OTHER, SELFPAY ==
[2024-05-14 20:29] VITALS: BP 149/74; PULSE 82; RESP 18; TEMP 36.3; O2SAT 97; BMI 37.8
--- NOTE | 2024-05-14 20:31 | ED_ITS ---
HPI - General Adult General Chief complaint: General Medical Stated complaint: Needs Rx refill Time Seen by Provider: 05/14/24 20:29 Source: patient Mode of arrival: ambulatory Limitations: no limitations History of Present Illness ED Provider: Steve Ramirez HPI narrative: 49 yold female with pmh of HTNn presents to the ED for medication refill. Patient states she needs medication refill for atenolol. Patient ran out of atenolol. Patient denies any complaints. Related Data Home Medications ?Medication ?Instructions ?Recorded ?Confirmed atenolol 50 mg tablet 50 mg PO DAILY 09/08/22 03/17/23 hydrochlorothiazide 25 mg tablet 25 mg PO DAILY 09/08/22 03/17/23 levothyroxine 75 mcg tablet 75 mcg PO DAILY 09/08/22 03/17/23 ustekinumab 45 mg/0.5 mL 45 mg subcut Q12W 09/08/22 03/17/23 subcutaneous syringe (Stelara) losartan 100 mg tablet 100 mg PO DAILY 09/14/22 03/17/23 Previous Rx's ?Medication ?Instructions ?Recorded albuterol sulfate 90 mcg/actuation 2 puff inhalation Q4-6H PRN 03/12/21 aerosol inhaler shortness of breath or wheezing #6.7 grams fluticasone propionate 50 2 spray intranasal DAILY #16 grams 03/12/21 mcg/actuation nasal spray,suspension (Flonase Allergy Relief) bisacodyl 5 mg tablet,delayed 10 mg (2 x 5 mg) PO ONCE 1 day #2 09/08/22 release (Dulcolax (bisacodyl)) tabs polyethylene glycol 3350 17 17 g PO DAILY #510 grams 09/08/22 gram/dose oral powder (Miralax) polyethylene glycol 3350 17 238 g PO ONCE #238 grams 09/08/22 gram/dose oral powder (Miralax) albuterol sulfate 1.25 mg/3 mL 1.25 mg (3 mL) inhalation Q4-6H 11/25/22 solution for nebulization PRN shortness of breath or wheezing #90 mL lidocaine 5 % topical patch 1 patch topical DAILY #15 ea 07/17/23 naproxen 500 mg tablet 500 mg PO BID PRN pain #20 tabs 07/17/23 albuterol sulfate 90 mcg/actuation 2 puff inhalation Q4-6H PRN 08/18/23 aerosol inhaler shortness of breath or wheezing #8.5 grams prednisone 50 mg tablet 50 mg PO DAILY #4 tabs 08/18/23 diphenhydramine HCl 25 mg capsule 50 mg (2 x 25 mg) PO ONCE PRN 03/16/24 (Benadryl) allergic reaction #10 caps famotidine 40 mg tablet (Pepcid) 40 mg PO ONCE PRN allergic 03/16/24 reaction #5 tabs prednisone 50 mg tablet 50 mg PO ONCE PRN allergic 03/16/24 reaction #5 tabs atenolol 50 mg tablet 50 mg PO DAILY 30 days #30 tabs 05/14/24 Allergies Allergy/AdvReac Type Severity Reaction Status Date / Time dipyrone [DIPYRONE] Allergy Unknown UNKNOWN Verified 05/14/24 20:31 pork derived (porcine) Allergy Unknown Unknown Verified 05/14/24 20:31 blood pressure medication Allergy Unknown Unknown Uncoded 05/14/24 20:31 Review of Systems Review of Systems: Asymptomatic Yes all other systems are reviewed and are negative [facility] Past Medical History Medical History Sleep apnea Hypothyroidism HTN (hypertension) Asthma Surgical History (Updated 03/17/23 @ 10:35 by Pao Fuentes RN) Surgical history unknown Family History Family History Mother Heart attack Obesity Hypertension Depression Father Heart attack Diabetes Hypertension Brother Heart attack Social History Social History Alcohol intake: never Patient Tobacco Use Status: Never used Tobacco Physical Exam ED Const General: cooperative, healthy appearing, comfortable, no acute distress, well developed, alert, awake and Physically active Orientation/consciousness: patient oriented x3 HENMT Head: Yes normal to inspection, Yes No palpable skull fracture present, Yes normocephalic and Yes atraumatic Ears: hearing grossly normal bilaterally, external ears normal and TM's normal bilaterally Eyes General: appearance normal, both eyes and all related structures Neck Neck: Yes normal visual inspection, Yes full ROM, Yes no lymphadenopathy, Yes no meningeal signs, Yes trachea midline, Yes supple, No anterior neck swelling and No tender Chest Chest palpation & inspection: normal inspection of the chest and normal palpation of entire chest wall Resp Effort & Inspection: normal respiratory effort and able to speak in complete sentences Auscultation: clear to auscultation bilaterally Cardio Jugular venous distension: no JVD Heart sounds: S1 normal heart sound present and S2 normal heart sound present GI Inspection: Yes normal to inspection Palpation (GI): Soft to palpation, not firm, nontender, no guarding and not rigid General: No CVA tenderness and Yes no CVA tenderness Back/Spine/Pelvis Back: no CVA tenderness, No CVA tenderness and No back tenderness Skin General skin exam: no rashes or lesions noted, elasticity normal and turgor normal Neuro General: patient oriented x3, gait normal, tone normal, moves all extremities, Normal light touch and pain sensation, no meningeal signs, no focal motor deficits, CN's II-XI intact bilaterally and normal sensation to monofilament Extrem General: Yes normal to inspection, Yes full ROM and Yes capillary refill normal Psych Appearance: grossly normal, well kempt and not disheveled Medical Decision Making Medical Decision Making MDM Narrative: 49-year-old female presents to ED for atenolol prescription refill. Patient states no physical complaints. NIH score is 0. Patient will have atelnol prescription sent to pharmacy. Not suspecting myocardial infarction, stroke, or kidney injury. Patient explained worrisome signs and informed to to return to the ED immediately or follow up with primary care provider Differential Diagnosis Differential Diagnoses: The differential diagnosis associated with the presentation includes (Medication refill) Admission/Observation Consideration of admission/observation: Escalation of care including admission/observation considered Independent Historian Clinical information obtained from an independent historian. History obtained from or confirmed by: Other (patient) External Record Review External record reviewed: Other (prior visits) Prescription Management I considered prescription management with: Other (HTN) Discharge Plan Discharge Clinical Impression: Medication refill Patient Disposition: Home, Self-Care Instructions: Medicine Refill (ED) Additional Instructions: Return to the ED immediately for any headache, nausea, vomiting, slurred speech, facial droop, loss of vision, paralysis of extremities, chest pain, shortness of breath, or any other concerning symptoms. Recommend follow up with primary care provider. Prescriptions: New atenolol 50 mg tablet 50 mg PO DAILY 30 Days Qty: 30 0RF No Action albuterol sulfate 90 mcg/actuation HFA aerosol inhaler 2 puff inhalation Q4-6H PRN (Reason: shortness of breath or wheezing) Qty: 6.7 0RF fluticasone propionate [Flonase Allergy Relief] 50 mcg/actuation spray,suspension 2 spray intranasal DAILY Qty: 16 0RF Rx Instructions: administer into each nostril diphenhydramine HCl [Benadryl] 25 mg capsule 50 mg PO ONCE PRN (Reason: allergic reaction) Qty: 10 0RF famotidine [Pepcid] 40 mg tablet 40 mg PO ONCE PRN (Reason: allergic reaction) Qty: 5 0RF prednisone 50 mg tablet 50 mg PO ONCE PRN (Reason: allergic reaction) Qty: 5 0RF albuterol sulfate 1.25 mg/3 mL solution for nebulization 1.25 mg inhalation Q4-6H PRN (Reason: shortness of breath or wheezing) Qty: 90 0RF naproxen 500 mg tablet 500 mg PO BID PRN (Reason: pain) Qty: 20 0RF lidocaine 5 % adhesive patch,medicated 1 patch topical DAILY Qty: 15 0RF Rx Instructions: leave on most painful area for up to 12 hrs prednisone 50 mg tablet 50 mg PO DAILY Qty: 4 0RF albuterol sulfate 90 mcg/actuation HFA aerosol inhaler 2 puff inhalation Q4-6H PRN (Reason: shortness of breath or wheezing) Qty: 8.5 0RF hydrochlorothiazide 25 mg tablet 25 mg PO DAILY atenolol 50 mg tablet 50 mg PO DAILY Stelara 45 mg/0.5 mL syringe 45 mg subcut Q12W levothyroxine 75 mcg tablet 75 mcg PO DAILY bisacodyl [Dulcolax (bisacodyl)] 5 mg tablet,delayed release (DR/EC) 10 mg PO ONCE 1 Days Qty: 2 0RF Rx Instructions: take 2 tabs at noon the day before your colonoscopy polyethylene glycol 3350 [Miralax] 17 gram/dose powder 238 g PO ONCE Qty: 238 0RF Rx Instructions: As directed by gastroenterology department at [facility] polyethylene glycol 3350 [Miralax] 17 gram/dose powder 17 g PO DAILY Qty: 510 2RF losartan 100 mg tablet 100 mg PO DAILY Discharge Date/Time: 05/14/24 20:38 Print Language: Swedish
[2024-05-14 20:38] VITALS: BP 149/74; PULSE 82; RESP 18; TEMP 36.3; O2SAT 97
== END 2024-05-14 20:38 | disposition home or self-care (01) ==
PROVIDERS: Emergency Provider Emergency Medicine; PCP Internal Medicine
DX: Z76.0 Encounter for issue of repeat prescription (principal); Z79.899 Other long term (current) drug therapy
CPT/HCPCS: 99282

== ENCOUNTER 2024-07-03 20:50 | Emergency (ER) | payer OTHER, SELFPAY ==
[2024-07-03 21:11] VITALS: BP 119/75; PULSE 85; RESP 15; TEMP 37.1; O2SAT 100; BMI 39.6
--- NOTE | 2024-07-03 21:35 | ED.EAR ---
HPI - Ear Problem General Chief complaint: Ear Problems Stated complaint: bilateral ear pain Time Seen by Provider: 07/03/24 21:33 Source: patient Mode of arrival: ambulatory Limitations: no limitations History of Present Illness HPI Narrative: Patient is a 49-year-old female who presents emergency department for evaluation of bilateral ear pain right worse than left. Onset 1 week ago. Has been taking Tylenol and ibuprofen without much improvement. She reports a history of similar symptoms in the past which was due to allergies reportedly. She denies changes in her hearing, pain behind the ear, sore throat, URI symptoms, fevers, chills. Related Data Home Medications ?Medication ?Instructions ?Recorded ?Confirmed atenolol 50 mg tablet 50 mg PO DAILY 09/08/22 03/17/23 hydrochlorothiazide 25 mg tablet 25 mg PO DAILY 09/08/22 03/17/23 levothyroxine 75 mcg tablet 75 mcg PO DAILY 09/08/22 03/17/23 ustekinumab 45 mg/0.5 mL 45 mg subcut Q12W 09/08/22 03/17/23 subcutaneous syringe (Stelara) losartan 100 mg tablet 100 mg PO DAILY 09/14/22 03/17/23 Previous Rx's ?Medication ?Instructions ?Recorded albuterol sulfate 90 mcg/actuation 2 puff inhalation Q4-6H PRN 03/12/21 aerosol inhaler shortness of breath or wheezing #6.7 grams fluticasone propionate 50 2 spray intranasal DAILY #16 grams 03/12/21 mcg/actuation nasal spray,suspension (Flonase Allergy Relief) bisacodyl 5 mg tablet,delayed 10 mg (2 x 5 mg) PO ONCE 1 day #2 09/08/22 release (Dulcolax (bisacodyl)) tabs polyethylene glycol 3350 17 17 g PO DAILY #510 grams 09/08/22 gram/dose oral powder (Miralax) polyethylene glycol 3350 17 238 g PO ONCE #238 grams 09/08/22 gram/dose oral powder (Miralax) albuterol sulfate 1.25 mg/3 mL 1.25 mg (3 mL) inhalation Q4-6H 11/25/22 solution for nebulization PRN shortness of breath or wheezing #90 mL lidocaine 5 % topical patch 1 patch topical DAILY #15 ea 07/17/23 naproxen 500 mg tablet 500 mg PO BID PRN pain #20 tabs 07/17/23 albuterol sulfate 90 mcg/actuation 2 puff inhalation Q4-6H PRN 08/18/23 aerosol inhaler shortness of breath or wheezing #8.5 grams prednisone 50 mg tablet 50 mg PO DAILY #4 tabs 08/18/23 diphenhydramine HCl 25 mg capsule 50 mg (2 x 25 mg) PO ONCE PRN 03/16/24 (Benadryl) allergic reaction #10 caps famotidine 40 mg tablet (Pepcid) 40 mg PO ONCE PRN allergic 03/16/24 reaction #5 tabs prednisone 50 mg tablet 50 mg PO ONCE PRN allergic 03/16/24 reaction #5 tabs atenolol 50 mg tablet 50 mg PO DAILY 30 days #30 tabs 05/14/24 amoxicillin 875 mg-potassium 1 tab PO BID #14 tabs 07/03/24 clavulanate 125 mg tablet hydrocortisone-acetic acid 1 %-2 % 5 drp otic (ear) right QID #10 mL 07/03/24 ear drops Allergies Allergy/AdvReac Type Severity Reaction Status Date / Time dipyrone [DIPYRONE] Allergy Unknown Difficulty Verified 07/03/24 21:12 Breathing pork derived (porcine) Allergy Unknown Difficulty Verified 07/03/24 21:12 Breathing Review of Systems Review of Systems: Yes all other systems are reviewed and are negative PMFSH Past Medical History Attestation statement: The following information was validated with the patient. Source: old records reviewed Medical History Sleep apnea Hypothyroidism HTN (hypertension) Asthma Surgical History Surgical history unknown Family History Family History Mother Heart attack Obesity Hypertension Depression Father Heart attack Diabetes Hypertension Brother Heart attack Social History Social History Alcohol intake: never Patient Tobacco Use Status: Never used Tobacco Do you have a plan to hurt others: No Plan Physical Exam Vital Signs: Vital Signs: Last Vital Signs Temp 98.8 F 07/03/24 21:11 Pulse 85 07/03/24 21:11 Resp 15 07/03/24 21:11 BP 119/75 07/03/24 21:11 Pulse Ox 100 07/03/24 21:11 O2 Del Method Room Air 07/03/24 21:11 BMI result Body Mass Index 39.6 Appearance: Alert.?Oriented to person, place and time. No acute distress.?Normal affect. Eyes: Pupils equal, round and reactive to light.? ENT: Pharynx normal.??Left TM normal and intact, no effusion, normal external canal. Right TM is erythematous and bulging with cloudy opacity. External canal with cerumen/green exudate, canal appears slightly edematous and erythematous. No pain upon palpation of the auricle or tragus. No mastoid tenderness. Neck: Normal inspection.? Neck supple.?? CVS: Heart sounds normal. Normal heart rate and rhythm.? Pulses normal.?? Respiratory: No respiratory distress.? Lung sounds clear to auscultation bilaterally?? Skin: Skin warm and dry.? Normal skin color.?? Neuro: Moves all extremities spontaneously. Sensation intact bilaterally. Ambulates with normal steady gait. Medical Decision Making Medical Decision Making [facility] Narrative: Patient is a 49-year-old female who presents emergency department for evaluation of bilateral ear pain right worse than left as per HPI. Physical examination is concerning for acute otitis media on the right and otitis externa. Not consistent with malignant otitis externa. No evidence of rupture to the TM. No mastoid tenderness to suggest acute mastoiditis. Left TM is normal in intact, no evidence of acute otitis media no otitis externa. Viral serologies were obtained and are negative. Sent prescription for oral antibiotics as well as antibiotic drops to pharmacy, educated on precautions to prevent rupture of TM, reviewed worrisome signs and symptoms that would warrant re-evaluation in the emergency department. All questions answered. Stable for discharge Differential Diagnosis Differential Diagnoses: The differential diagnosis associated with the presentation includes (See narrative above) Lab Data [facility] Lab Attestation statement: I reviewed the patient's lab results. (See narrative above) Labs: Lab Results 07/03/24 Range/Units 21:40 Influenza Type A (PCR) NEGATIVE (Negative) Influenza Type B (PCR) NEGATIVE (Negative) RSV RNA Qual (PCR) NEGATIVE (Negative) SARS-CoV-2 RNA (RT-PCR) NEGATIVE (Negative) External Record Review External record reviewed: Outpatient record Prescription Management I considered prescription management with: Pain Medication (Acetaminophen/ibuprofen) and Antibiotic Discharge Plan Discharge Clinical Impression: Acute otitis media Qualifiers: Otitis media type: suppurative Laterality: right Recurrence: non-recurrent Spontaneous tympanic membrane rupture: without spontaneous rupture Qualified Code(s): H66.001 - Acute suppurative otitis media without spontaneous rupture of ear drum, right ear Otitis externa Qualifiers: Chronicity: acute Laterality: right Patient Disposition: Home, Self-Care Instructions: Otitis Externa (ED), How to Use Ear Drops (ED), Ear Infection (ED) Additional Instructions: Take oral antibiotics and antibiotic drops as prescribed. Do not insert anything into the ear canal such as Q-tips, or submerge your head under water, as this may increase the risk of rupture to the ear drum. Follow-up with your primary care doctor. Return to emergency department any new or worsening symptoms or concerns. Prescriptions: New amoxicillin-pot clavulanate 875-125 mg tablet 1 tab PO BID Qty: 14 0RF hydrocortisone-acetic acid 1-2 % drops 5 drp otic (ear) right QID Qty: 10 0RF No Action albuterol sulfate 90 mcg/actuation HFA aerosol inhaler 2 puff inhalation Q4-6H PRN (Reason: shortness of breath or wheezing) Qty: 6.7 0RF fluticasone propionate [Flonase Allergy Relief] 50 mcg/actuation spray,suspension 2 spray intranasal DAILY Qty: 16 0RF Rx Instructions: administer into each nostril diphenhydramine HCl [Benadryl] 25 mg capsule 50 mg PO ONCE PRN (Reason: allergic reaction) Qty: 10 0RF famotidine [Pepcid] 40 mg tablet 40 mg PO ONCE PRN (Reason: allergic reaction) Qty: 5 0RF prednisone 50 mg tablet 50 mg PO ONCE PRN (Reason: allergic reaction) Qty: 5 0RF atenolol 50 mg tablet 50 mg PO DAILY 30 Days Qty: 30 0RF albuterol sulfate 1.25 mg/3 mL solution for nebulization 1.25 mg inhalation Q4-6H PRN (Reason: shortness of breath or wheezing) Qty: 90 0RF naproxen 500 mg tablet 500 mg PO BID PRN (Reason: pain) Qty: 20 0RF lidocaine 5 % adhesive patch,medicated 1 patch topical DAILY Qty: 15 0RF Rx Instructions: leave on most painful area for up to 12 hrs prednisone 50 mg tablet 50 mg PO DAILY Qty: 4 0RF albuterol sulfate 90 mcg/actuation HFA aerosol inhaler 2 puff inhalation Q4-6H PRN (Reason: shortness of breath or wheezing) Qty: 8.5 0RF hydrochlorothiazide 25 mg tablet 25 mg PO DAILY atenolol 50 mg tablet 50 mg PO DAILY Stelara 45 mg/0.5 mL syringe 45 mg subcut Q12W levothyroxine 75 mcg tablet 75 mcg PO DAILY bisacodyl [Dulcolax (bisacodyl)] 5 mg tablet,delayed release (DR/EC) 10 mg PO ONCE 1 Days Qty: 2 0RF Rx Instructions: take 2 tabs at noon the day before your colonoscopy polyethylene glycol 3350 [Miralax] 17 gram/dose powder 238 g PO ONCE Qty: 238 0RF Rx Instructions: As directed by gastroenterology department at [facility] polyethylene glycol 3350 [Miralax] 17 gram/dose powder 17 g PO DAILY Qty: 510 2RF losartan 100 mg tablet 100 mg PO DAILY Referrals: Tu Vazquez MD [Primary Care Provider] - Print Language: Polish
[2024-07-03 22:28] LABS: Influenza A PCR NEGATIVE (Negative); Influenza B PCR NEGATIVE (Negative); Resp Syncy Virus RNA Qual PCR NEGATIVE (Negative); SARS COV2 PCR INHOUSE NEGATIVE (Negative)
[2024-07-03 22:44] VITALS: BP 119/75; PULSE 85; RESP 15; TEMP 37.1; O2SAT 100
== END 2024-07-03 22:57 | disposition home or self-care (01) ==
LOC: HO.ED 22:43
PROVIDERS: Emergency Provider Emergency Medicine; PCP Internal Medicine
DX: H66.001 Acute suppurative otitis media without spontaneous rupture of ear drum, right ear (principal); H60.91 Unspecified otitis externa, right ear; Z03.818 Encounter for observation for suspected exposure to other biological agents ruled out; I10 Essential (primary) hypertension; J45.909 Unspecified asthma, uncomplicated; Z79.899 Other long term (current) drug therapy
CPT/HCPCS: 0241U; 99282; 99283

== ENCOUNTER 2024-07-17 15:26 | Outpatient (REF) | payer OTHER, SELFPAY ==
[2024-07-20 04:43] LABS: TS Negative Control Passed; TS Panel A 1; TS Panel B 0; TS Positive Control Passed; TSpotTB Negative (Negative)
== END 2024-07-17 15:27 | disposition home or self-care (01) ==
LOC: CF 15:26
PROVIDERS: Visit Provider Internal Medicine
DX: Z11.1 Encounter for screening for respiratory tuberculosis (principal)
CPT/HCPCS: 36415; 86481

== ENCOUNTER 2024-08-31 | Outpatient (REF) | payer OTHER, SELFPAY ==
--- OUTSIDE RECORDS SUMMARY | 2024-09-08 14:22 | XMS_ITS | Clinical Summary ---
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 Procedure Name Priority Date/Time Associated Diagnosis Comments BASIC METABOLIC PANEL Routine 06/23/2019 3:05 PM EST Essential hypertension from Last 3 Months or Most Recently Relevant to Health Maintenance Results * Due to [place] [employer] law, this organization might not be sharing negative HIV tests. * Basic metabolic panel (06/23/2019 3:05 PM EST) NA 137 135 - 145 mmol/L 06/23/2019 3:58 PM EST [facility] K 3.9 3.5 - 5.3 mmol/L 06/23/2019 3:58 PM [facility] Cl 100 97 - 110 mmol/L 06/23/2019 3:58 PM [facility] CO2 29 24 - 32 mmol/L 06/23/2019 3:58 PM [facility] BUN 14 7 - 23 mg/dL 06/23/2019 3:58 PM [facility] Creatinine 0.70 0.50 - 1.20 mg/dL 06/23/2019 3:58 PM [facility] Glucose 90 70 - 99 mg/dL 06/23/2019 3:58 PM [facility] Calcium 9.3 8.7 - 10.7 mg/dL 06/23/2019 3:58 PM [facility] Anion Gap 8 5 - 15 06/23/2019 3:58 PM [facility] eGFR Non- >90 >=90 mL/min/BSA 06/23/2019 3:58 PM [facility] eGFR >90 >=90 mL/min/BSA 06/23/2019 3:58 PM [facility] Comment: Units = mL/min/1.73 [...] MD LAB BLOOD ORDERABLES Final R esult [facility] [address] [place] [address], from Last 3 Months or Most Recently Relevant to Health Maintenance Insurance [employer]/[place] [place] [address] Care Teams Circular Saw Filer Relationship Specialty Start Date End Date Terra Cooper [address] [place] [address] PCP - General Family Medicine 06/07/19
--- OUTSIDE RECORDS SUMMARY | 2024-09-08 14:22 | XMS_ITS | Encounter Summary ---
Author Organization [employer] Address [address] [place] [address] 7 [place] [address] Care Team Providers Care Intermediate Card Tender Name Role Phone Tu Vazquez MD Primary Care Prov ider Reason for Referral * Medications - Closed Specialty Diagnoses / Procedures Referred By Contac t Referred To Contact Heath Maria MD [address] [place] [address] Phone: tel: fax: Referral ID Status Reason Start Date Expiration Date Visits Re quested Visits Authorized [id number] Closed 1 1 Encounter Details Date Type Department Care Team (Late st Contact Info) Description 02/19/2023 Orders Only [facility] [address] [place] [address] Heath Maria MD [address] [place] [address] Social History Tobacco Use Types Packs/Day Years [...] Description 09/19/2024 11:15 AM EST Office Visit [facility] [address] [place] [address] Heath Maria MD [address] [place] [address] documented as of this encounter Visit Diagnoses Not on filedocumented in this encounter Additional Health Concerns Assessment Noted Time PHQ-9 Depression Total Score: 0 07/28/20 22 1:55 PM EST documented as of this encounter Care Teams Intermediate Card Tender Relationship Specialty Start Date End Date Tu Vazquez MD [address] [place] [address] PCP - General Internal Medicine 12/26/19 documented as of this encounter
--- OUTSIDE RECORDS SUMMARY | 2024-09-08 14:22 | XMS_ITS | Referral Summary ---
Author Organization [facility] Address [address] [place] [address] Care Team Providers Care Personal Care Assistant Name Role Phone Terra Cooper Primary Care Provider [phone] Allergies Active Allergy Reactions Criticality Noted Date [...] (06/23/2019 7:09 PM EST): History of fatal [place] in both of her parents. 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 Procedure Name Priority Date/Time Associated Diagnosis Comments BASIC METABOLIC PANEL Routine 06/23/2019 3:05 PM EST Essential hypertension from Last 3 Months or Most Recently Relevant to Health Maintenance Results * Due to [place] [employer] law, this organization might not be sharing negative HIV tests. * Basic metabolic panel (06/23/2019 3:05 PM EST) NA 137 135 - 145 mmol/L 06/23/2019 3:58 PM EST [facility] K 3.9 3.5 - 5.3 mmol/L 06/23/2019 3:58 PM EST [facility] Cl 100 97 - 110 mmol/L 06/23/2019 3:58 PM EST [facility] CO2 29 24 - 32 mmol/L 06/23/2019 3:58 PM EST [facility] BUN 14 7 - 23 mg/dL 06/23/2019 3:58 PM EST [facility] Creatinine 0.70 0.50 - 1.20 mg/dL 06/23/2019 3:58 PM EST [facility] Glucose 90 70 - 99 mg/dL 06/23/2019 3:58 PM EST [facility] Calcium 9.3 8.7 - 10.7 mg/dL 06/23/2019 3:58 PM EST [facility] Anion Gap 8 5 - 15 06/23/2019 3:58 PM EST [facility] eGFR Non- >90 >=90 mL/min/BSA 06/23/2019 3:58 PM EST [facility] eGFR >90 >=90 mL/min/BSA 06/23/2019 3:58 PM [facility] Comment: Units = mL/min/1.73 [...] MD LAB BLOOD ORDERABLES Final R esult [facility] [address] [place] [address], [place] from Last 3 Months or Most Recently Relevant to Health Maintenance Insurance [facility]/FREE CARE Care Teams Personal Care Assistant Relationship Specialty Start Date End Date Terra Cooper [address] [place] [phone] PCP - General Family Medicine 06/07/19
--- OUTSIDE RECORDS SUMMARY | 2024-09-08 14:22 | XMS_ITS | Encounter Summary ---
Author Organization [employer] Address [address] [facility] 7t [place] [address] Care Team Providers Care Tombstone Polisher Name Role Phone Tu Vazquez MD Primary Care Prov ider Reason for Visit * Reason Comments Med Refill Encounter Details Date Type Department Care Team (Late st Contact Info) Description 09/04/2024 Refill [facility] [address] [place] [address] Tu Vazquez MD [address] [place] [address] Social History Tobacco Use Types Packs/Day Years [...] Description 09/19/2024 11:15 AM EST Office Visit [facility] [address] [place] [address] Heath Maira MD [address] [place] [address] documented as of this encounter Visit Diagnoses Not on filedocumented in this encounter Additional Health Concerns Assessment Noted Time PHQ-9 Depression Total Score: 0 07/28/20 22 1:55 PM EST documented as of this encounter Care Teams Tombstone Polisher Relationship Specialty Start Date End Date Tu Vazquez MD [address] [place] [address] PCP - General Internal Medicine 12/26/19 documented as of this encounter
--- OUTSIDE RECORDS SUMMARY | 2024-09-08 14:22 | XMS_ITS | Encounter Summary ---
Author Organization [employer] Address [address] [facility] [address] [place] [address] Care Team Providers Care Newspaper Subscription Solicitor Name Role Phone Tu Vazquez MD Primary Care Prov ider Encounter Details Date Type Department Care Team (Late st Contact Info) Description 07/04/2024 Orders Only [facility] [address] [place] [address] Heath Maria MD [address] [place] [address] Social History Tobacco Use Types Packs/Day Years [...] Description 09/19/2024 11:15 AM EST Office Visit [facility] [address] [place] [address] Heath Maria MD [address] [place] [address] documented as of this encounter Visit Diagnoses Not on filedocumented in this encounter Additional Health Concerns Assessment Noted Time PHQ-9 Depression Total Score: 0 07/28/20 22 1:55 PM EST documented as of this encounter Care Teams Newspaper Subscription Solicitor Relationship Specialty Start Date End Date Tu Vazquez MD [address] [place] [address] PCP - General Internal Medicine 12/26/19 documented as of this encounter
--- OUTSIDE RECORDS SUMMARY | 2024-09-08 14:22 | XMS_ITS | Encounter Summary ---
Author Organization [employer] Address [address] [facility] [address] [place] [address] Care Team Providers Care Welder Apprentice Arc Name Role Phone Tu Vazquez MD Primary Care Prov ider Reason for Referral * Imaging (Urgent) - Authorized Specialty Diagnoses / Procedures Referred By Contac t Referred To Contact Radiology Diagnoses Lump of thigh, left Procedures US LOWER EXTREMITY, SOFT TISSUE Danuta Vazquez CNM [address] [place] [address] Phone: tel: fax: [facility] Referral ID Status Reason Start Date Expiration Date V isits Requested Visits Authorized [id number] Authorized 08/31/2024 08/31/2025 1 1 Encounter Details Date Type Department Care Team (Late st Contact Info) Description 08/31/2024 11:30 AM EST Office Visit [facility] MEDICINE [address] [place] [address] Danuta Vazquez CNM [address] [place] [address] Cervical cancer screening (Primary Dx); Candidiasis of [...] in this encounter Progress Notes * Danuta Vazquez CNM - 08/31/2024 11:30 AM EST Subjective [...] Upcoming Encounters Date Type Department Care Team ([facility] st Contact Info) Description 09/19/2024 11:15 AM EST Office Visit [facility] PEDS [address] [place] [address] Heath Maria MD [address] [place] [address] Scheduled Orders Name Type Priority Associated Diagnoses [...] fluid manually resulted (08/31/2024 12:58 PM EST) [facility] Prep Positive Comment:pH 4.5, pos hyphae, neg [...] documented as of this encounter Care Teams Welder Apprentice Arc Relationship Specialty Start Date End Date Tu Vazquez MD [address] [place] [id number] PCP - General Internal Medicine 12/26/19 documented as of this encounter
--- OUTSIDE RECORDS SUMMARY | 2024-09-08 14:22 | XMS_ITS | Clinical Summary ---
Author Organization [employer] Address [address] [facility] 7t [place] [address] Care Team Providers Care Motor Carrier Inspector Name Role Phone Tu Vazquez MD Primary Care Prov ider Allergies Active Allergy Reactions Criticality Noted Date Comments Hydralazine Hives,Unknown 06/05/2019 Pork-Derived Products Shortness of breath High 06/23 Medications Fluocinolone Acetonide Scalp (Ahtanum-Smoothe/ FS Scalp) 0.01 % oilIndications: Psoriasis Once [...] ML SUBCUTANEOUSLY once 0.5 mL 025 Active Stelara injection INJECT 0.5 ML SUBCUTANEOUSLY ONCE 0.5 mL 025 2024 Discontinued(R eorder (will not trigger notification to Pharmacy)) terconazole (Terazol 7) 0.4 % vaginal cream Insert 1 applicator into the vagina at bedtime for 7 days. 45 g 025 2024 Active Problems Problem Noted Date Diagnosed Date Acute cough 09/03/2023 Assessment & Plan (09/03/2023 4:29 PM EST): Patient with URI symptoms went to er, will provide benzonate to aid with cough episoide Lung nodule 09/03/2023 Assessment & Plan (09/03/2023 4:30 PM EST): Patient founf with left lung nodule incidentally on xray, will order a ct scan for further evaluation Psoriasis 01/26/2023 Precordial pain 07/28/2022 Assessment & Plan (07/28/2022 2:03 PM EST): Will refer to cardiology, for evaluation, she has both of her parents with CAD and brother recently had [place] Screening for colon cancer 07/28/2022 Assessment & Plan (05/02/2024 2:11 PM EDT): Patient now prefers cologuard, risk vs benefits discussed, will send kit Assessment & Plan (07/28/2022 2:03 PM EST): Will refer to Gi, she wants to go [place], Acquired hypothyroidism 07/27/2022 Assessment & Plan (05/02/2024 [...] Encounters Date Type Department Care Team Description 09/04/2024 Refill [facility] [address] [place] [phone] Tu Vazquez MD 08/31/2024 11:30 AM EST Office Visit [facility] [address] [place] [phone] Alpa Wade CNM Cervical cancer screening (Primary Dx); Candidiasis of vulva and vagina; Lump of thigh, left 08/31/2024 Travel 08/24/2024 Orders Only [facility] [address] [place] [address] Heath Maria MD Psoriasis (Primary Dx) 08/08/2024 Telephone [facility] [address] [place] [address] Heath Maria MD 08/08/2024 Refill [facility] [address] [place] [address] Tu Vazquez MD 07/11/2024 Telephone [facility] [address] [place] [address] Tu Vazquez MD Prior Authorization 07/10/2024 Orders Only [facility] [address] [place] [address] Tu Vazquez MD Screening-pulmonary TB (Primary Dx) 07/06/2024 Telephone [facility] [address] [place] [address] Tu Vazquez MD Stelara PA Denied 07/04/2024 Orders Only [facility] [address] [place] [address] Heath Maria MD 07/03/2024 Orders Only GENERIC EXTERNAL DATA DEPARTMENT Provider, Generic External Data 07/03/2024 Telephone [facility] [address] [place] [address] Tu Vazquez MD Walk-In 06/22/2024 Travel from Last 3 Months Immunizations Name Administration [...] Description 09/19/2024 11:15 AM EST Office Visit [facility] [address] [place] [address] Heath Maria MD [address] [place] [address] Health Maintenance Due Date Last Done Comments CT Colonography 1975 Colonoscopy 1975 FIT 1975 FOBT 1975 HIV Screening 1975 Sigmoidoscopy 1975 Family Planning (PISQ) 1989 Hepatitis C Screening 02/18/1992 DTaP/Tdap/Td Vaccines (1 - Tdap) 1993 Hepatitis B Vaccines (1 of 3 - 19+ 3-dose series) 1993 Depression Screening 07/28/2023 07/28/2022, 07/28/20 22 Pneumococcal Vaccine: 50+ Years (1 of 1 [...] DNA/Cologuard 05/18/2027 05/18/2024 Lipid Panel 05/09/2029 05/09/2024, 12/04/2022, 12/12/2021, Additional history exists RSV Patients and [...] QL NAAT Routine 07/03/2024 9:40 PM EST LAB COLOGUARD?? COLON CANCER SCREEN Routine 05/18/2024 [...] (BMI) of 36.0 to 36.9 in adult ([facility]) LIPID PANEL, STANDARD Routine 05/09/2024 8:18 AM EDT Class 2 severe obesity due to excess calories with serious comorbidity and body mass index (BMI) of 36.0 to 36.9 in adult ([facility]) BI MAMMOGRAM SCREENING TOMOSYNTHESIS BILATERAL Routine 12/02/2023 [...] PM EST) T Spot TB Negative Negative [facility] Comment:A negative test resu lt [...] as aquantitative test. TS PANEL A 1 [facility] TS PANEL B 0 [facility] Negative Control Passed [facility] Positive Control Passed [facility] Comment:For additional infor irene, please refer tohttp://education.[employer]/faq/CUJ076(This link is being provided for informational/educational purposes only.)THIS TEST WAS PERFORMED AT:[facility] [id number] [place] [id number] SHRESTHA MD,PHD 07/17/2024 3:38 PM EST 07/17/2024 5:22 PM EST Tu Lemon MD LAB BLOOD ORDERABL ES Final Result [facility] [address] [place] [address] [phone] * SARS-CoV-2 RNA, Influenza A/B, and RSV RNA, Ql NAAT (07/03/2024 9:40 PM EST) Influenza A PCR NEGATIVE Negative [facility] Influenza B PCR NEGATIVE Negative [facility] Resp Syncy Virus RNA Qual PCR NEGATIVE Negative [facility] SARS COV2 PCR NEGATIVE Negative [facility] Comment:All test results mus t [...] use by authorized laboratories.Testing performed on the [employer] GeneXpert utilizingreal-time RT-PCR.All SARS CoV2 and positive influenza A/B results arereported to [facility]. 07/03/2024 9:40 PM EST 07/03/2024 9:42 PM EST us Generic External Data Provider LAB MICROBIOLOGY - GENERAL ORDERABLES Final Result [facility] [address] [place], [place] [phone] * Cologuard?? colon cancer screening (05/18/2024 6:50 AM EDT) Cologuard Result Negative Negative 05/25/20 8:47 PM EDT [facility] (CLIA #:[id number]) Comment: NEGATIVE TEST RESULT. A negative Cologuard [...] screened with both Cologuard and colonoscopy. (Redd T. et al, N Engl J Med 2014;370(14):1286- 1297) The normal value (reference range) for this assay is negative. COLOGUARD RE-SCREENING RECOMMENDATION: Periodic colorectal cancer screening is an important part of preventive healthcare for asymptomatic individuals at average risk for colorectal cancer. ??Following a negative Cologuard result, the [place] Cancer Society and U.S. Multi-Society Task Force screening guidelines recommend a Cologuard re-screening interval of 3 years. References: [place] [employer] Guideline for Colorectal Cancer Screening: https://www.cancer.org/cancer/wklxz-pejbte-cjztyz/toaxijiwb-mkfvxpetc-ojouldp/ac s-rec ommendations.html.; Stewart OLIVARES, Tere SANCHEZ, Love DíazK, Colorectal Cancer Screening: Recommendations for Physicians and Patients from the U.S. Multi-Society Task Force on Colorectal Cancer Screening , Am J Gastroenterology 2017; 112:7497-8344. TEST DESCRIPTION: Composite algorithmic analysis of stool [...] screened with both Cologuard and colonoscopy. (Redd Neal. et al, N Engl J Med 2014;370(14):0117-4001.) Cologuard may produce a false negative or false positive result (no colorectal cancer or precancerous polyp present at colonoscopy follow up). A negative Cologuard test result does not guarantee the absence of CRC or advanced adenoma (pre-cancer). The current Cologuard screening interval is every 3 years. ([place] [employer] Society and U.S. Multi-Society Task Force). Cologuard performance data in a 10,000 patient pivotal study using colonoscopy as the reference method can be accessed at the following location: www.QCoefficient/results. Additional description of the Cologuard test process, warnings and precautions can be found at www.WhoSayrd.com. Stool specimen (specimen) 05/18/2024 6:50 AM EDT 05/19/2024 12:41 PM EDT Tu Lemon MD LAB MOLECULAR DIAG NOSTICS ORDERABLES Final Result [facility] (CLIA #:[id number]) [address] [place] [address], * Hemoglobin A1c (05/09/2024 8:18 AM EDT) Hemoglobin A1c 5.9 <6.0 % [facility] Comment:Hemoglobin A1C Refer ence Range Adults: 4.8 - 6.0 % Non diabetic: < 6.0 % Goal: < 7.0 %Additional Action Suggested: > 8.0 %Note: Hemoglobin A1c results are invalid for patients with abnormal amounts of HbF. Blood transfusions may impact the HbA1c concentration in the patient sample. Estimated Average Glucose 123 mg/dL [facility] Comment:eAG = Estimated ave rage glucose which is %A1C expressed asaverage glucose, using the formula of the E9Q-XpsepkiAshtnjt Glucose study (ADAG), Diabetes Care, Vol.31,#8,Mar. 2007 Blood Venous blood specimen / Unknown 05/09/2024 8:18 AM EDT 05/09/2024 5:54 PM EDT Tu Lemon MD LAB BLOOD ORDERABL ES Final Result [facility] [address] [place] [phone] * (ABNORMAL) Lipid Panel, Standard (05/09/2024 8:18 AM EDT) Triglycerides 169(H) <150 mg/dL [facility] Comment:Desirable Triglyceri de: less than 150 mg/dLBorderline High Triglyceride 150-199 mg/dLHigh Triglyceride: 200-499 mg/dLVery High Triglyceride: greater than or equal to 5OO mg/dL Cholesterol 212(H) <200 mg/dL [facility] Comment:Desirable Cholestero l: less than 200 mg/dLBorderline High Cholesterol: 200-239 mg/dLHigh Cholesterol: greater than 239 mg/dL LDL Cholesterol Calculated 123(H) <100 mg/dL [facility] Comment:Desirable LDL: less than 100 mg/dLNear Optimal/Above Optimal LDL: 110- 129 mg/dLBorderline High LDL: 130-159 mg/dLHigh LDL: 160-189 mg/dLVery High LDL: greater than or equal to 190 mg/dL HDL Cholesterol 56 >40 mg/dL [facility] Comment:Desirable HDL: great er than 40 mg/dL Note: This HDL assay may give artificially low results in patients with liver disease. Blood Venous blood specimen / Unknown 05/09/2024 8:18 AM EDT 05/09/2024 5:54 PM EDT us Tu Lemon MD LAB BLOOD ORDERABL ES Final Result [facility] [address] [place] [address] [phone] * BI Mammogram Screening Tomosynthesis Bilateral (12/02/2023 2:40 PM EDT) Anatomical Region Laterality Modality Breast Bilateral Mammography 12/02/2023 2:40 PM EDT Narrative 12/27/2023 12:41 PM EDT ? [facility] ? [address] ?[place] [address] ? Mammography Report ? Signed ? Patient: Micheal WaldropElizabeth ?MR#: ?? [id number] ? : 1975 ?Acct:[id number] ? Age/Sex: 48 / F ?ADM Date: //24 ? Loc: HO.MAMMO ? Attending Dr: Tu Lemon MD ? Ordering Physician: Tu Vazquez MD ?Res ?? ults: 1Negative ? Date of Service: 12/02/23 ?Follow Up: 1 Year From Orig ?? inal Mammogram ? Procedure(s): MM tomosynthesis screening BI ?? Accession Number(s): [id number] ? cc: Tu Vazquez MD ? EXAMINATION: [...] in OV> ? 12/27/23 1237 ? DD/ 1440 ? TD/TT: ? Estimator And Drafter: ? Procedure Note Yevgeniy, Troy - 12/27/2023 [facility] [address] [place], [place] [address] Mammography Report Signed Patient: Pj Corona#: [id number] : 1975Acct:[id number] Age/Sex: 48 / FADM Date: 12/02/23 Loc: HO.MAMMO Attending Dr: Tu Lemon MD Ordering Physician: Tu Vazquez ults: 1Negative Date of Service: 12/02/23Follow Up: 1 Year From Orig inal Mammogram Procedure(s): MM tomosynthesis screening BI Accession Number(s): [id number] cc: Tu Vazquez MD EXAMINATION: MM SCREENING [...] in OV> 12/27/23 1237 DD/ 1440 TD/TT: Estimator And Drafter: us Tu Lemon MD IMG BI PROCEDURES Final Result * Pap Smear (08/31/2023 1:30 PM EST) Swab Cervix uteri structure / Unknown 08/31/2023 1:30 PM EST 09/02/2023 9:50 AM EST [facility] - 09/15/2023 6:58 AM EST ----- ------- Name: Elizabeth Corona ?Age/Sex: 48/F ? : 1975 Unit#: [id number] ?? Attend Dr: ALPA WADE CNM ?Re08/31/23 ?Status: DEP REF ? Location: HO.CHCLNP ? Disch: ? ----- ------- SPEC : [id number] ? RECD: 09/02/23 ? STATUS: ??SOUT ? REQ NUM: [id number] ? LACEY: 08/31/23-1330 ? SUBM DR: ALPA WADE CNM ? ENTERED: ??09/02/23-1130 ?SP TYPE: Pap Smr ?OTHR : ? ORDERED: ??Pap Smear ? Interpretation ?? Satisfactory for evaluation. ?? Negative for intraepithelial lesion or malignancy. ?Clinical Information LMP: Unknown date Previous PAP test: Unknown date/findings Other history: On immunosuppressant ? Material Received ?? ThinPrep-Cervical ----- ------- Signed (signature on file) SEBASTIAN Ramirez (ASCP) 09/15/23 0658 ? ----- ------- ? END OF REPORT ? us Alpa Wade [facility] CYTOLOGY ORDERABLES F inal Result [facility] [address] [place], [place] [phone] * HPV mRNA E6/E7 (04/15/2021 3:24 PM EDT) HPV nRNA E6/E7 Not Detected Not Detected [facility] Comment: Methodology: Lumber Grader-Mediated Amplification This assay detects E6/E7 viral messenger RNA (mRNA) from 14 high-risk HPV types (16,18,31,33,35,39,45,51,52,56,58,59,66,68). ? The analytical performance characteristics of this assay have been determined by [employer]. The modifications have not been cleared or approved by the FDA. This assay has been validated pursuant to the CLIA regulations and is used for clinical purposes. ?? For additional information, please refer to http://education.[employer]/faq/DYV726f0 (This link if provided for information/ educational purposes only.) 04/15/2021 3:24 PM EDT us Alpa LOPEZ LAB BLOOD ORDERABLES Nury bee Result [facility] [address] from Last 3 Months or Most Recently Relevant to Health Maintenance Insurance [place] [address] [facility] PARTIAL DENTAL - HSN PARTIAL (MEDICAID) Care Teams Motor Carrier Inspector Relationship Specialty Start Date End Date Tu Vazquez MD [address] [place] [address] PCP - General Internal Medicine 12/26/19
--- OUTSIDE RECORDS SUMMARY | 2024-09-08 14:22 | XMS_ITS | Encounter Summary ---
Author Organization [employer] Address [address] [facility] 7 [place] [address] Care Team Providers Care Data Transcriber Name Role Phone Tu Vazquez MD Primary Care Prov ider Encounter Details Date Type Department Care Team ([facility] Contact Info) Description 02/19/2023 Orders Only [facility] [address] [place] [address] Kala Bustillo LPN Social History Tobacco Use [...] Upcoming Encounters Date Type Department Care Team ([facility] Contact Info) Description 09/19/2024 11:15 AM EST Office Visit [facility] [address] [place] [address] Heath Maria MD [address] [place] [address] documented as of this encounter Visit Diagnoses Not on filedocumented in this encounter Additional Health Concerns Assessment Noted Time PHQ-9 Depression Total Score: 0 07/28/20 22 1:55 PM EST documented as of this encounter Care Teams Data Transcriber Relationship Specialty Start Date End Date Tu Vazquez MD [address] [place] [address] PCP - General Internal Medicine 12/26/19 documented as of this encounter
--- OUTSIDE RECORDS SUMMARY | 2024-09-08 14:23 | XMS_ITS | Encounter Summary ---
Author Organization [employer] Address [address] [facility] 7t [place] [address] Care Team Providers Care Detail Sergeant Name Role Phone Tu Vazquez MD Primary Care Prov ider Encounter Details Date Type Department Care Team (Late st Contact Info) Description 08/24/2024 Orders Only [facility] [address] [place] [address] Heath Maria MD [address] [place] [address] Psoriasis (Primary Dx) Social History Tobacco Use [...] Description 09/19/2024 11:15 AM EST Office Visit [facility] [address] [place] [address] Heath Maria MD [address] [place] [address] documented as of this encounter Visit Diagnoses Diagnosis Psoriasis- Primary Other psoriasis documented in this encounter Additional Health Concerns Assessment Noted Time PHQ-9 Depression Total Score: 0 07/28/20 22 1:55 PM EST documented as of this encounter Care Teams Detail Sergeant Relationship Specialty Start Date End Date Tu Vazquez MD [address] [place] [address] PCP - General Internal Medicine 12/26/19 documented as of this encounter
--- OUTSIDE RECORDS SUMMARY | 2024-09-08 14:23 | XMS_ITS | Encounter Summary ---
Author Organization [facility] [employer] Address [address] [place] [address] 7 [place] [address] Care Team Providers Care Mechanical Service Technician Name Role Phone Tu Vazquez MD Primary Care Prov ider Encounter Details Date Type Department Care Team (Late Contact Info) Description 04/01/2023 Abstract [facility] [address] [place] [address] Saqib Maria Social History Tobacco Use Types [...] 09/19/2024 11:15 AM EST Office Visit [facility] [address] [place], [place] [phone] Heath Maria MD [address] [place] [address] documented as of this encounter Visit Diagnoses Not on filedocumented in this encounter Additional Health Concerns Assessment Noted Time PHQ-9 Depression Total Score: 0 07/28/20 22 1:55 PM EST documented as of this encounter Care Teams Mechanical Service Technician Relationship Specialty Start Date End Date Tu Vazquez MD [address] [place] [phone] PCP - General Internal Medicine 12/26/19 documented as of this encounter
--- OUTSIDE RECORDS SUMMARY | 2024-09-08 14:23 | XMS_ITS | Encounter Summary ---
Author Organization [facility] [employer] Address [address] [place] [address] 7t [place] [address] Care Team Providers Care Control Chemist Name Role Phone Tu Vazquez MD Primary Care Prov ider Encounter Details Date Type Department Care Team (Latest Contact Info) Description 06/08/2022 Abstract [facility] CONVERSIONS Dental, Provider, DDS Social History [...] Description 09/19/2024 11:15 AM EST Office Visit [facility]EDS [address] [place] [address] Heath Maria MD [address] [place] [address] documented as of this encounter Visit Diagnoses Not on filedocumented in this encounter Care Teams Control Chemist Relationship Specialty Start Date End Date Tu Vazquez MD [address] [place] [address] PCP - General Internal Medicine 12/26/19 documented as of this encounter
--- OUTSIDE RECORDS SUMMARY | 2024-09-08 14:23 | XMS_ITS | Encounter Summary ---
Author Organization [facility] [employer] Address [address] [place] [address] 7t [place] [address] Care Team Providers Care Charge Out Clerk Name Role Phone Tu Vazquez MD Primary Care Prov ider Encounter Details Date Type Department Care Team (Latest Contact Info) Description 01/29/2021 Abstract [facility] CONVERSIONS Dental, Provider, DDS Social History [...] Description 09/19/2024 11:15 AM EST Office Visit [facility] [address] [place] [address] Heath Maria MD [address] [place] [address] documented as of this encounter Visit Diagnoses Not on filedocumented in this encounter Care Teams Charge Out Clerk Relationship Specialty Start Date End Date Tu Vazquez MD [address] [place] [address] PCP - General Internal Medicine 12/26/19 documented as of this encounter
--- OUTSIDE RECORDS SUMMARY | 2024-09-08 14:23 | XMS_ITS | Encounter Summary ---
Author Organization [facility] [employer] Address [address] [place] [address] 7 [place] [address] Care Team Providers Care Glass Installer Name Role Phone Tu Vazquez MD Primary Care Prov ider Encounter Details Date Type Department Care Team (Latest Contact Info) Description 10/13/[address] [facility] CONVERSIONS Dental, Provider, DDS Social History [...] Description 09/19/2024 11:15 AM EST Office Visit [facility]S [address] [place] [address] Heath Maria MD [address] [place] [address] documented as of this encounter Visit Diagnoses Not on filedocumented in this encounter Care Teams Glass Installer Relationship Specialty Start Date End Date Tu Vazquez MD [address] [place] [address] PCP - General Internal Medicine 12/26/19 documented as of this encounter
--- OUTSIDE RECORDS SUMMARY | 2024-09-08 14:23 | XMS_ITS | Encounter Summary ---
Author Organization [employer] Address [address] [facility] [address] 7t [place] [address] Care Team Providers Care Cellophane Bag Machine Operator Name Role Phone Tu Vazquez MD [...] Description 09/19/2024 11:15 AM EST Office Visit [facility] [address] [place] [address] Heath Maria MD [address] [place] [address] documented as of this encounter Visit Diagnoses Not on filedocumented in this encounter Additional Health Concerns Assessment Noted Time PHQ-9 Depression Total Score: 0 07/28/20 22 1:55 PM EST documented as of this encounter Care Teams Cellophane Bag Machine Operator Relationship Specialty Start Date End Date JohnsonTu Corado MD [address] [place] [address] PCP - General Internal Medicine 12/26/19 documented as of this encounter
--- OUTSIDE RECORDS SUMMARY | 2024-09-08 14:23 | XMS_ITS | Encounter Summary ---
Author Organization [employer] [facility] [employer] Address [address] [place] [address] 7 [place] [address] Care Team Providers Care Flag Decorator Name Role Phone Tu Vazquez MD Primary Care Prov ider Encounter Details Date Type Department Care Team (Latest Contact Info) Description 04/17/2019 Abstract [facility] CONVERSIONS Dental, Provider, DDS Social History [...] Description 09/19/2024 11:15 AM EST Office Visit [facility]S [address] [place] [address] Heath Maria MD [address] [place] [address] documented as of this encounter Visit Diagnoses Not on filedocumented in this encounter Care Teams Flag Decorator Relationship Specialty Start Date End Date Tu Vazquez MD [address] [place] [address] PCP - General Internal Medicine 12/26/19 documented as of this encounter
[2024-09-11 10:31] LABS: HPV Genotype 16 Negative (Negative); HPV Genotype 18 Negative (Negative); HPV High Risk Negative (Negative)
== END 2024-08-31 00:01 | disposition home or self-care (01) ==
LOC: HO.LNP
PROVIDERS: Visit Provider Advanced Practice Midwife
DX: N89.8 Other specified noninflammatory disorders of vagina (principal)
CPT/HCPCS: 87626; 88175

== ENCOUNTER 2024-08-31 16:23 | Outpatient (REF) | payer OTHER, SELFPAY ==
--- OUTSIDE RECORDS SUMMARY | 2024-08-31 19:38 | XMS_ITS | Encounter Summary ---
Author Organization [employer] Address [address] [facility] [address] [place] [address] Care Team Providers Care Cleaner Industrial Name Role Phone Tu Vazquez MD Primary Care Prov ider Encounter Details Date Type Department Care Team (Late st Contact Info) Description 07/04/2024 Orders Only [facility] [address] [place] [address] Heath Maria MD [address] [place] [address] Social History Tobacco Use Types Packs/Day Years Used Date Smoking Tobacco: Never Passive Smoke Exposure: Never Smokeless Tobacco: Never Alcohol Use Standard Drinks/Week Comments Never 0 (1 standard drink = 0.6 oz pur e alcohol) Depression Answer Date Recorded Patient Health Questionnaire-9 Score 0 07/28/2022 Housing Stability Answer Date Recorded What is your housing situation today? I have maricel vickers 09/02/[address] you li ve. Do you have problems with any of the following? None of the above 09/02/2023 Food Insecurity Answer Date Recorded Within the past 12 months, y ou worried that your food would run out before you got money to buy more: Never True 09/02/2023 Within the past 12 months,th e food you bought just didn't last and you didn't have enough money to get more: Never True 08/2023 Transportation Answer Date Recorded In the past 12 months, has l ack of transportation kept you from medical appts, meetings, work or from getting things needed for daily living? No 09/02/2023 Utilities Answer Date Recorded In the past 12 months, has t he electric, gas, oil or water company threatened to shut off services in your home? No 09/02/2023 Depression Answer Date Recorded Patient Health Questionnaire-2 Score 0 07/28/2022 Comments No Sex and Gender Information Value Date Recorded Sex Assigned at Female 06/01/2022 10:31 AM EDT Legal Sex Female 10:31 AM EDT Gender Identity Female 06/01/2022 10:31 AM EDT Sexual Orientation Straight 06/01/2022 10 :31 AM EDT documented as of this encounter Plan of Treatment Upcoming Encounters Date Type Department Care Team (Late st Contact Info) Description 09/19/2024 11:15 AM EST Office Visit [facility] [address] [place] [address] Heath Maria MD [address] [place] [address] documented as of this encounter Visit Diagnoses Not on filedocumented in this encounter Additional Health Concerns Assessment Noted Time PHQ-9 Depression Total Score: 0 07/28/20 22 1:55 PM EST documented as of this encounter Care Teams Cleaner Industrial Relationship Specialty Start Date End Date Tu Vazquez MD [address] [place] [address] PCP - General Internal Medicine 12/26/19 documented as of this encounter
--- OUTSIDE RECORDS SUMMARY | 2024-08-31 19:38 | XMS_ITS | Encounter Summary ---
Author Organization [employer] Address [address] [place] [address] [address] [place] [address] Care Team Providers Care Software Product Manager Name Role Phone Tu Vazquez MD Primary Care Prov ider Encounter Details Date Type Department Care Team (Latest Contact Info) Description 01/29/2021 Abstract [facility] CONVERSIONS Dental, Provider, DDS Social History Tobacco Use Types Packs/Day Years Used Date Smoking Tobacco: Never Assessed Comments Unknown Sex and Gender Information Value Date Recorded Sex Assigned at Female 06/01/2022 10:31 AM EDT Legal Sex Female 10:31 AM EDT Gender Identity Female 06/01/2022 10:31 AM EDT Sexual Orientation Straight 06/01/2022 10 :31 AM EDT documented as of this encounter Plan of Treatment Upcoming Encounters Date Type Department Care Team (Late st Contact Info) Description 09/19/2024 11:15 AM EST Office Visit [facility] [address] [place] [address] Heath Maria MD [address] [place] [address] documented as of this encounter Visit Diagnoses Not on filedocumented in this encounter Care Teams Software Product Manager Relationship Specialty Start Date End Date Tu Vazquez MD [address] [place] [address] PCP - General Internal Medicine 12/26/19 documented as of this encounter
--- OUTSIDE RECORDS SUMMARY | 2024-08-31 19:38 | XMS_ITS | Encounter Summary ---
Author Organization [employer] Address [address] [facility] [address] [place] [address] Care Team Providers Care Assignment Desk Assistant Name Role Phone Tu Vazquez MD Primary Care Prov ider Reason for Referral * Imaging (Urgent) - Authorized Specialty Diagnoses / Procedures Referred By Contac t Referred To Contact Radiology Diagnoses Lump of thigh, left Procedures US LOWER EXTREMITY, SOFT TISSUE Danuta Vazquez CNM [address] [place] [address] Phone: tel: fax: [facility] Referral ID Status Reason Start Date Expiration Date V isits Requested Visits Authorized [id number] Authorized 08/31/2024 08/31/2025 1 1 Encounter Details Date Type Department Care Team (Late st Contact Info) Description 08/31/2024 11:30 AM EST Office Visit [facility] [address] [place] [address] Danuta Vazquez CNM [address] [place] [address] Cervical cancer screening (Primary Dx); Candidiasis of vulva and vagina; Lump of thigh, left Social History Tobacco Use Types Packs/Day Years [...] AM EDT documented as of this encounter Last Filed Vital Signs Vital Sign Reading Time Taken Comments Blood Pressure 141/85 08/31/2024 11:36 AM EST Pulse 67 08/31/2024 11:36 AM EST Temperature 36.7 ??C (98 ??F) 08/31/2024 11: 36 AM EST Respiratory Rate 16 08/31/2024 11:3 6 AM EST Oxygen Saturation 98% 08/31/2024 11: 36 AM EST Inhaled Oxygen Concentration - - Weight 92.4 kg (203 lb 12.8 oz) 025 11:36 AM EST Height 149.9 cm (4' 11 ) 08/31/2024 11: 36 AM EST Body Mass Index 41.16 08/31/2024 11:36 AM EST documented in this encounter Progress Notes * Danuta Vazquze CNM - 08/31/2024 11:30 AM EST Subjective Patient ID: Elizabeth Waldrop is a 49 y.o. female who presents for pap Last pap with me 08/2023, NIL. Pap NIL/HPV neg 04/2021. Known psoriasis, on Stelara. Mammogram BIRADS1, cat b 12/2023. Not sexually active, no new partners since last visit with me. Notes frequent yeast infections while on Stelara. Having some itching today, no other vaginal symptoms. Also notes lump on left thigh that has been present for many years, sometimes uncomfortable. No change in size, thinks it may have started after injury to the area. Monthly menses x 3 days, no heavy flow or bad cramping. Menses have gotten shorter in length, used to bleed x 5 days. Mild vasomotor symptoms. Review of Systems Genitourinary: Negative for dyspareunia, dysuria, frequency, genital sores, hematuria, menstrual problem, pelvic pain, urgency, vaginal bleeding, vaginal discharge and vaginal pain. No abnormal pap, no abnormal bleeding, no breast pain, no breast mass, no nipple discharge Objective BP (!) 141/85 (BP Location: Left arm, Patient Position: Sitting, BP Cuff Size: Large adult) Pulse67 Temp 98 ??F (36.7 ??C) (Temporal) Resp 16 Ht 4' 11 (1.499 m) Wt 203 lb 12.8 oz (92.4 kg) LMP (LMP Unknown) SpO2 98% BMI 41.16 kg/m?? Physical Exam Constitutional: Appearance: Normal appearance. Chest: Breasts: Right: Normal. No swelling, bleeding, inverted nipple, mass, nipple discharge, skin change or tenderness. Left: Normal. No swelling, bleeding, inverted nipple, mass, nipple discharge, skin change or tenderness. Genitourinary: General: Normal vulva. Labia: Right: No rash, tenderness, lesion or injury. Left: No rash, tenderness, lesion or injury. Vagina: No signs of injury and foreign body. Vaginal discharge present. No erythema, tenderness, bleeding or lesions. Cervix: No cervical motion tenderness, discharge, friability, lesion, erythema, cervical bleeding or eversion. Uterus: Normal. Not enlarged and not tender. Adnexa: Right adnexa normal and left adnexa normal. Right: No mass, tenderness or fullness. Left: No mass, tenderness or fullness. Lymphadenopathy: Upper Body: Right upper body: No supraclavicular or axillary adenopathy. Left upper body: No supraclavicular or axillary adenopathy. Skin: Comments: 2cm mass under skin left upper thigh Neurological: Mental Status: She is alert. Psychiatric: Mood and Affect: Mood normal. Behavior: Behavior normal. Assessment/Plan Diagnoses and all orders for this visit: Cervical cancer screening - Pap Smear Yearly screening if on Stelara. Will contact with results and plan. Reviewed normal vs abnormal menstrual changes. Report prolonged/frequent bleeding, or if bleeding after a year of no bleeding. Vasomotor symptoms manageable, let me know if this changes. Candidiasis of vulva and vagina - POCT fern test, vaginal fluid manually resulted For terconazole as prescribed. Report worsening/persistent symptoms. Hgb A1C from 05/2024 5.9. Willrepeat if vulvovaginal candidiasis recurs. Lump of thigh, left - US LOWER EXTREMITY, SOFT TISSUE; Future Will order soft tissue ultrasound and contact with results. Consider surgical referral if indicated. Other orders - terconazole (Terazol 7) 0.4 % vaginal cream; Insert 1 applicator into the vagina at bedtime for 7days. documented in this encounter Plan of Treatment Upcoming Encounters Date Type Department Care Team ([facility] st Contact Info) Description 09/19/2024 11:15 AM EST Office Visit [facility] [address] [place] [address] Heath Maria MD [address] [place] [address] Scheduled Orders Name Type Priority Associated Diagnoses Orde r Schedule US LOWER EXTREMITY, SOFT TISSUE Imaging Urgent Lump of thigh, left Expected: 08/31/2024, Expires: 08/31/2025 Pap Smear Pathology and Cytology Routine Cervical cancer screening Ordered: 08/31/2024 documented as of this encounter Procedures Procedure Name Priority Date/Time Associated Diagnosis Comments POCT WET MOUNT/CHANA Routine 08/31/2024 12 :58 PM EST Candidiasis of vulva and vagina documented in this encounter Results * POCT fern test, vaginal fluid manually resulted (08/31/2024 12:58 PM EST) CHANA Prep Positive Comment:pH 4.5, pos hyphae, neg clue, neg trich. neg wbc, neg whiff Vaginal Fluid Vaginal structure / Unknown 08/31/2024 12:58 PM EST Impressions Danuta Vazquez CNM - 08/31/2024 12:58 PM EST Vulvovaginal candidiasis Danuta Vazquez CNM POINT OF CARE TEST ENTER/ EDIT ORDERABLES Final Result documented in this encounter Visit Diagnoses Diagnosis Cervical cancer screening- Primary Screening for malignant neoplasm of the cervix Candidiasis of vulva and vagina Lump of thigh, left documented in this encounter Additional Health Concerns Assessment Noted Time PHQ-9 Depression Total Score: 0 07/28/20 22 1:55 PM EST documented as of this encounter Care Teams Assignment Desk Assistant Relationship Specialty Start Date End Date Tu Vazquez MD [address] [place] [id number] PCP - General Internal Medicine 12/26/19 documented as of this encounter
--- OUTSIDE RECORDS SUMMARY | 2024-08-31 19:38 | XMS_ITS | Clinical Summary ---
Author Organization [facility] Address [address] [place] [address] Care Team Providers Care Director Advertising Name Role Phone Terra Cooper Primary Care Provider [phone] Allergies Active Allergy Reactions Criticality Noted Date Comments Hydralazine Hives 06/23/2019 Pork/Porcine Containing Products Dyspnea High Medications losartan (COZAAR) 100 mg tablet Take 100 mg by mouth daily. Active atenolol (TENORMIN) 50 mg tablet Take 50 mg by mouth daily. Active hydroCHLOROthia zide (HYDRODIURIL) 25 mg tablet Take 25 mg by mouth daily. Active levothyroxine (SYNTHROID, LEVOTHROID) 75 mcg tablet Take 75 mcg by mouth daily. Active albuterol (PROAIR HFA,VENTOLIN HFA) 90 mcg inhaler Inhale 1-2 puffs by mouth every 4 hours as needed. Use with spacer. Active fluticasone propionate (FLOVENT HFA) 110 mcg inhaler Inhale 2 puffs by mouth 2 times a day. Rinse mouth with water after use. Do not swallow. Active vitamin D3 (Vitamin D3) 25 mcg (1,000 unit) capsule Take 1 capsule by mouth once a day. Active triamcinolone acetonide (KENALOG) 0.5% ointment Apply topically to the affected area 2 times a day. Active triamcinolone acetonide (KENALOG) 0.025% cream Apply topically to the affected area 2 times a day. Active metroNIDAZOLE (METROGEL) 0.75% vaginal gel Apply vaginally every night for 5 nights. 70 g 2 Active fluconazole (DIFLUCAN) 150 mg tablet Take 1 tablet (150 mg total) by mouth See admin instructions. Take one tablet today and repeat treatment in 7 days if symptoms persist. 2 tablet 2 Active Active Problems Problem Noted Date Diagnosed Date Family history of ischemic heart disease 019 Assessment & Plan (06/23/2019 7:09 PM EST): History of fatal RI in both of her parents. We eo not have any records in her system and as such she is difficult to risk stratify. Will plan on ordering full set of labs for risk stratification. 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 To evaluate for coronary disease, will order coronary CT with calcium score. In summary, this is a 44 yo asymptomatic female with significant family history of cardiac disease. In addition to the below tests, I also advised healthy meal choices and regular exercise. - BMP, A1c, Lipid panel - TTE - Carotid duplex - Coronary CT with calcium score. Hypertension Assessment & Plan (06/23/2019 7:01 PM EST): Hx of essential hypertension, managed by PCP. Currently taking atenlol 50mg QD, HCTZ 25mg QD and losartan 100mg dailt. BP well controlled this visit 115/76. She has been intolerant of hydralazine with facial swelling, SOB and nausea. - Continue current regimen Family History Medical History Relation Name Comments Coronary artery disease Brother Coronary artery disease Father Diabetes type II Father Hypertension Father Myocardial Infarction Father Myocardial Infarction Mother Relation Name Status Comments Brother Alive Father Mother Social History Tobacco Use Types Packs/Day Years Used Date Smoking Tobacco: Never Smokeless Tobacco: Never Alcohol Use Standard Drinks/Week Comments Never 0 (1 standard drink = 0.6 oz pur e alcohol) Comments No Sex and Gender Information Value Date Recorded Sex Assigned at Not on file Legal Sex Female 9:43 AM EST Gender Identity Not on file Sexual Orientation Not on file 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 Not on file Not on file Last Filed Vital Signs Vital Sign Reading Time Taken Comments Blood Pressure 130/82 01/26/2022 11:41 AM EDT Pulse 88 06/23/2019 1:32 PM EST Temperature - - Respiratory Rate 18 06/23/2019 1:32 PM EST Oxygen Saturation 96% 06/23/2019 1:32 PM EST Inhaled Oxygen Concentration - - Weight 94.8 kg (209 lb) 01/26/2022 11:41 AM EDT Height 153 cm (5' 0.24 ) 06/23/2019 1:33 PM EST Body Mass Index 40.5 06/23/2019 1:33 PM EST Plan of Treatment Health Maintenance Due Date Last Done Comments Cervical Cancer Screening 1974 Cologuard 1974 Colon Cancer Screening 1974 Colonoscopy 1974 FOBT / Fit Test 1974 HIV Screening 1974 HPV and Pap Smear 1974 Hepatitis C Screening 1974 Pap Smear 1974 Sigmoidoscopy 1974 Hepatitis B Vaccines (1 of 3 - 19+ 3-dose series) 1993 DTaP,Tdap,and Td Vaccines (1 - Tdap) 02/18/1996 Mammogram 2014 Basic Metabolic Panel 06/23/2020 06/23/2019 Zoster Vaccines (1 of 2) 02/18/2024 COVID-19 Vaccine (1 - 2023-2 5 season) 2024 Influenza Vaccine (#1) 2024 04/25/2019 Alcohol/Substance Use Screening 08/02/2024 Depression Screening and Follow-Up 08/02/2024 Social Drivers of Health Kaila ual Screening 08/02/2024 RSV Vaccine (60+ years old a nd patients) (1 - 1-dose 75+ series) 2049 Pneumococcal Vaccine: Pediat vilma (0-5 Years) and At-Risk Patients (6-64 Years) Aged Out No longer eligible b ased on patient's age to complete this topic Procedures * Due to [place] [employer] law, this organization might not be sharing negative HIV tests. Procedure Name Priority Date/Time Associated Diagnosis Comments BASIC METABOLIC PANEL Routine 06/23/2019 3:05 PM EST Essential hypertension from Last 3 Months or Most Recently Relevant to Health Maintenance Results * Due to [place] [employer] law, this organization might not be sharing negative HIV tests. * Basic metabolic panel (06/23/2019 3:05 PM EST) NA 137 135 - 145 mmol/L 06/23/2019 3:58 PM EST [facility] K 3.9 3.5 - 5.3 mmol/L 06/23/2019 3:58 PM [facility] Cl 100 97 - 110 mmol/L 06/23/2019 3:58 PM [facility] CO2 29 24 - 32 mmol/L 06/23/2019 3:58 PM [facility] BUN 14 7 - 23 mg/dL 06/23/2019 3:58 PM [facility] Creatinine 0.70 0.50 - 1.20 mg/dL 06/23/2019 3:58 PM [facility] Glucose 90 70 - 99 mg/dL 06/23/2019 3:58 PM [facility] Calcium 9.3 8.7 - 10.7 mg/dL 06/23/2019 3:58 PM [facility] Anion Gap 8 5 - 15 06/23/2019 3:58 PM [facility] eGFR Non- >90 >=90 mL/min/BSA 06/23/2019 3:58 PM [facility] eGFR >90 >=90 mL/min/BSA 06/23/2019 3:58 PM [facility] Comment: Units = mL/min/1.73 m2 Glomerular Filtration Rate (GFR) is estimated based on the CKD-EPI Creatinine Equation (2009). Stage ?Description ? GFR 1 ? Normal ? >=90 mL/min/BSA 2 ? Mildly decreased GFR ? 60-89 mL/min/BSA 3 ? Moderately decreased GFR ? 30-59 mL/min/BSA 4 ? Severely decreased GFR ? 15-29 mL/min/BSA 5 ? Kidney Failure ? <15 mL/min/BSA Blood specimen (specimen) Structure of peripheral vein / Unknown Venipuncture / Unknown 06/23/2019 3:05 PM EST 06/23/2019 3:31 PM EST us Josue Estrada MD LAB BLOOD ORDERABLES Final R esult [facility] [address] [place] [address], from Last 3 Months or Most Recently Relevant to Health Maintenance Insurance [employer]/FREE [address] [place] [place] [address] Care Teams Director Advertising Relationship Specialty Start Date End Date Terra Cooper [address] [place] [address] PCP - General Family Medicine 06/07/19
--- OUTSIDE RECORDS SUMMARY | 2024-08-31 19:38 | XMS_ITS | Encounter Summary ---
Author Organization [employer] Address [address] [facility] 7 [place] [address] Care Team Providers Care Cleaner Carpet And Upholstery Name Role Phone Tu Vazquez MD Primary Care Prov ider Encounter Details Date Type Department Care Team ([facility] Contact Info) Description 02/19/2023 Orders Only [facility] [address] [place] [address] Kala Bustillo LPN Social History Tobacco Use Types Packs/Day Years Used Date Smoking Tobacco: Never Passive Smoke Exposure: Never Smokeless Tobacco: Never Alcohol Use Standard Drinks/Week Comments Never 0 (1 standard drink = 0.6 oz pur e alcohol) Depression Answer Date Recorded Patient Health Questionnaire-9 Score 0 07/28/2022 Depression Answer Date Recorded Patient Health Questionnaire-2 Score 0 07/28/2022 Comments Unknown Sex and Gender Information Value Date Recorded Sex Assigned at Female 06/01/2022 10:31 AM EDT Legal Sex Female 10:31 AM EDT Gender Identity Female 06/01/2022 10:31 AM EDT Sexual Orientation Straight 06/01/2022 10 :31 AM EDT COVID-19 Exposure Response Date Recorded In the last 10 days, have yo u been in contact with someone who was confirmed or suspected to have Coronavirus/COVID-19? No / Unsure 01/26/2023 10:08 AM EDT documented as of this encounter Plan of Treatment Upcoming Encounters Date Type Department Care Team ([facility] Contact Info) Description 09/19/2024 11:15 AM EST Office Visit [facility] [address] [place] [address] Heath Maria MD [address] [place] [address] documented as of this encounter Visit Diagnoses Not on filedocumented in this encounter Additional Health Concerns Assessment Noted Time PHQ-9 Depression Total Score: 0 07/28/20 22 1:55 PM EST documented as of this encounter Care Teams Cleaner Carpet And Upholstery Relationship Specialty Start Date End Date Tu Vazquez MD [address] [place] [address] PCP - General Internal Medicine 12/26/19 documented as of this encounter
--- OUTSIDE RECORDS SUMMARY | 2024-08-31 19:38 | XMS_ITS | Encounter Summary ---
Author Organization [employer] Address [address] [facility] 7t [place] [address] Care Team Providers Care Strategic Development Manager Name Role Phone Tu Vazquez MD Primary Care Prov ider Encounter Details Date Type Department Care Team (Late st Contact Info) Description 08/08/2024 Telephone [facility] [address] [place] [address] Heath Maria MD [address] [place] [address] Social History Tobacco Use Types Packs/Day Years [...] AM EDT documented as of this encounter Miscellaneous Notes * Telephone Encounter - Heath Maria MD - 08/08/2024 8:47 PM EST I am unsure of what specialty pharmacy to send the medication to * Telephone Encounter - Javed Resendiz RN - 08/08/2024 3:22 PM EST Received call from [facility] pharmacy, spoke with Radha who state they were able to fill the stelara injection in the past but since pt switched insurance they are no longer able to fill and the rx needs aurea sent to a specialty pharmacy and filled there. Advised that message will be sent to provider. Radha from [facility] pharmacy verbalized understanding and agreed to plan. documented in this encounter Plan of Treatment Upcoming Encounters Date Type Department Care Team (Late st Contact Info) Description 09/19/2024 11:15 AM EST Office Visit [facility] MED & PEDS [address] [place] [address] Heath Maria MD [address] [place] [address] documented as of this encounter Visit Diagnoses Not on filedocumented in this encounter Additional Health Concerns Assessment Noted Time PHQ-9 Depression Total Score: 0 07/28/20 22 1:55 PM EST documented as of this encounter Care Teams Strategic Development Manager Relationship Specialty Start Date End Date Tu Vazquez MD [address] [place] [address] PCP - General Internal Medicine 12/26/19 documented as of this encounter
--- OUTSIDE RECORDS SUMMARY | 2024-08-31 19:38 | XMS_ITS | Encounter Summary ---
Author Organization [employer] Address [address] [facility] 7t [place] [address] Care Team Providers Care Tenter Frame Operator Name Role Phone Tu Vazquez MD Primary Care Prov ider Encounter Details Date Type Department Care Team (Late st Contact Info) Description 08/24/2024 Orders Only [facility] & PEDS [address] [place] [address] Heath Maria MD [address] [place] [address] Psoriasis (Primary Dx) Social History Tobacco Use Types Packs/Day Years [...] Description 09/19/2024 11:15 AM EST Office Visit [facility] & PEDS [address] [place] [address] Heath Maria MD [address] [place] [address] documented as of this encounter Visit Diagnoses Diagnosis Psoriasis- Primary Other psoriasis documented in this encounter Additional Health Concerns Assessment Noted Time PHQ-9 Depression Total Score: 0 07/28/20 22 1:55 PM EST documented as of this encounter Care Teams Tenter Frame Operator Relationship Specialty Start Date End Date Tu Vazquez MD [address] [place] [address] PCP - General Internal Medicine 12/26/19 documented as of this encounter
--- OUTSIDE RECORDS SUMMARY | 2024-08-31 19:38 | XMS_ITS | Encounter Summary ---
Author Organization [employer] Address [address] [place] [address] 7 [place] [address] Care Team Providers Care Technology Infusion Specialist Name Role Phone Tu Vazquez MD Primary Care Prov ider Reason for Referral * Medications - Closed Specialty Diagnoses / Procedures Referred By Contac t Referred To Contact Heath Maria MD [address] [place] [address] Phone: tel: fax: Referral ID Status Reason Start Date Expiration Date Visits Re quested Visits Authorized [id number] Closed 1 1 Encounter Details Date Type Department Care Team (Late st Contact Info) Description 02/19/2023 Orders Only [facility] PEDS [address] [place] [address] Heath Maria MD [address] [place] [address] Social History Tobacco Use Types Packs/Day Years [...] Description 09/19/2024 11:15 AM EST Office Visit [facility] PEDS [address] [place] [address] Heath Maria MD [address] [place] [address] documented as of this encounter Visit Diagnoses Not on filedocumented in this encounter Additional Health Concerns Assessment Noted Time PHQ-9 Depression Total Score: 0 07/28/20 22 1:55 PM EST documented as of this encounter Care Teams Technology Infusion Specialist Relationship Specialty Start Date End Date Tu Vazquez MD [address] [place] [address] PCP - General Internal Medicine 12/26/19 documented as of this encounter
--- OUTSIDE RECORDS SUMMARY | 2024-08-31 19:38 | XMS_ITS | Encounter Summary ---
Author Organization [facility] [employer] Address [address] [place] [address] 7 [place] [address] Care Team Providers Care Employee Development Director Name Role Phone Tu Vazquez MD Primary Care Prov ider Encounter Details Date Type Department Care Team (Late Contact Info) Description 04/01/2023 Abstract [facility] [address] [place] [address] Saqib Maria Social History Tobacco Use Types Packs/Day Years [...] Encounters Date Type Department Care Team (Late Contact Info) Description 09/19/2024 11:15 AM EST Office Visit [facility] MED & PEDS [address] [place], [place] [phone] Heath Maria MD [address] [place] [address] documented as of this encounter Visit Diagnoses Not on filedocumented in this encounter Additional Health Concerns Assessment Noted Time PHQ-9 Depression Total Score: 0 07/28/20 22 1:55 PM EST documented as of this encounter Care Teams Employee Development Director Relationship Specialty Start Date End Date Tu Vazquez MD [address] [place] [address] PCP - General Internal Medicine 12/26/19 documented as of this encounter
--- OUTSIDE RECORDS SUMMARY | 2024-08-31 19:38 | XMS_ITS | Encounter Summary ---
Author Organization [facility] [employer] Address [address] [place] [address] 7t [place] [address] Care Team Providers Care Pipe Line Gauger Name Role Phone Tu Vazquez MD Primary Care Prov ider Encounter Details Date Type Department Care Team (Latest Contact Info) Description 06/08/[address] [facility] CONVERSIONS Dental, Provider, DDS Social History [...] Description 09/19/2024 11:15 AM EST Office Visit [facility] PEDS [address] [place] [address] Heath Maria MD [address] [place] [address] documented as of this encounter Visit Diagnoses Not on filedocumented in this encounter Care Teams Pipe Line Gauger Relationship Specialty Start Date End Date Tu Vazquez MD [address] [place] [address] PCP - General Internal Medicine 12/26/19 documented as of this encounter
--- OUTSIDE RECORDS SUMMARY | 2024-08-31 19:38 | XMS_ITS | Encounter Summary ---
Author Organization [facility] [employer] Address [address] [place] [address] 7t [place] [address] Care Team Providers Care Associate Professor Of Literature Name Role Phone Tu Vazquez MD Primary Care Prov ider Encounter Details Date Type Department Care Team (Latest Contact Info) Description 04/17/[address] [facility] CONVERSIONS Dental, Provider, DDS Social History Tobacco [...] AM EST Office Visit [facility] PEDS [address] [place] [address] Heath Maria MD [address] [place] [address] documented as of this encounter Visit Diagnoses Not on filedocumented in this encounter Care Teams Associate Professor Of Literature Relationship Specialty Start Date End Date Tu Vazquez MD [address] [place] [address] PCP - General Internal Medicine 12/26/19 documented as of this encounter
--- OUTSIDE RECORDS SUMMARY | 2024-08-31 19:38 | XMS_ITS | Encounter Summary ---
Author Organization [facility] [employer] Address [address] [place] [address] 7t [place] [address] Care Team Providers Care Lumber Sorter Name Role Phone Tu Vazquez MD Primary Care Prov ider Encounter Details Date Type Department Care Team (Latest Contact Info) Description 10/13/2018 Abstract [facility] CON[facility] Dental, Provider, DDS Social History [...] Description 09/19/2024 11:15 AM EST Office Visit [facility] PEDS [address] [place] [address] Heath Maria MD [address] [place] [address] documented as of this encounter Visit Diagnoses Not on filedocumented in this encounter Care Teams Lumber Sorter Relationship Specialty Start Date End Date Tu Vazquez MD [address] [place] [address] PCP - General Internal Medicine 12/26/19 documented as of this encounter
--- OUTSIDE RECORDS SUMMARY | 2024-08-31 19:38 | XMS_ITS | Encounter Summary ---
Author Organization [employer] Address [address] [facility] 7t [place] [address] Care Team Providers Care Rock Crusher Operator Name Role Phone Tu Vazquez MD Primary Care Prov ider Reason for Visit * Reason Comments Med Refill Encounter Details Date Type Department Care Team ([facility] Contact Info) Description 08/08/2024 Refill [facility]EDS [address] [place] [address] Tu Vazquez MD [address] [place] [address] Social History Tobacco Use Types Packs/Day Years [...] Description 09/19/2024 11:15 AM EST Office Visit [facility] MED & PEDS [address] [place] [address] Heath Maria MD [address] [place] [address] documented as of this encounter Visit Diagnoses Not on filedocumented in this encounter Additional Health Concerns Assessment Noted Time PHQ-9 Depression Total Score: 0 07/28/20 22 1:55 PM EST documented as of this encounter Care Teams Rock Crusher Operator Relationship Specialty Start Date End Date Tu Vazquez MD [address] [place] [address] PCP - General Internal Medicine 12/26/19 documented as of this encounter
--- OUTSIDE RECORDS SUMMARY | 2024-08-31 19:38 | XMS_ITS | Encounter Summary ---
Author Organization [employer] Address [address] [facility] 7t [place] [address] Care Team Providers Care Clerical Car Checker Name Role Phone Tu Vazquez MD Primary Care Prov ider Encounter Details Date Type Department Care Team (Latest Contact Info) Description 08/31/2024 Travel Social History Tobacco Use Types Packs/Day Years [...] Description 09/19/2024 11:15 AM EST Office Visit [facility] PED[facility] [address] [place] [address] Heath Maria MD [address] [place] [address] documented as of this encounter Visit Diagnoses Not on filedocumented in this encounter Additional Health Concerns Assessment Noted Time PHQ-9 Depression Total Score: 0 07/28/20 22 1:55 PM EST documented as of this encounter Care Teams Clerical Car Checker Relationship Specialty Start Date End Date JohnsonTu Corado MD [address] [place] [address] PCP - General Internal Medicine 12/26/19 documented as of this encounter
--- OUTSIDE RECORDS SUMMARY | 2024-08-31 19:38 | XMS_ITS | Referral Summary ---
Author Organization [facility] Address [address] [place] [address] Care Team Providers Care Oim Consultant Name Role Phone Terra Cooper Primary Care Provider [phone] Allergies Active Allergy Reactions Criticality Noted Date [...] (06/23/2019 7:09 PM EST): History of fatal AR in both of her parents. We eo [...] SOB and nausea. 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 Procedure Name Priority Date/Time Associated Diagnosis Comments BASIC METABOLIC PANEL Routine 06/23/2019 3:05 PM EST Essential hypertension from Last 3 Months or Most Recently Relevant to Health Maintenance Results * Due to [place] [employer] law, this organization might not be sharing negative HIV tests. * Basic metabolic panel (06/23/2019 3:05 PM EST) NA 137 135 - 145 mmol/L 06/23/2019 3:58 PM EST [facility] K 3.9 3.5 - 5.3 mmol/L 06/23/2019 3:58 PM EST [facility] Cl 100 97 - 110 mmol/L 06/23/2019 3:58 PM EST [facility] CO2 29 24 - 32 mmol/L 06/23/2019 3:58 PM EST [facility] BUN 14 7 - 23 mg/dL 06/23/2019 3:58 PM EST [facility] Creatinine 0.70 0.50 - 1.20 mg/dL 06/23/2019 3:58 PM EST [facility] Glucose 90 70 - 99 mg/dL 06/23/2019 3:58 PM EST [facility] Calcium 9.3 8.7 - 10.7 mg/dL 06/23/2019 3:58 PM EST [facility] Anion Gap 8 5 - 15 06/23/2019 3:58 PM EST [facility] eGFR Non- >90 >=90 mL/min/BSA 06/23/2019 3:58 PM EST [facility] eGFR >90 >=90 mL/min/BSA 06/23/2019 3:58 PM [facility] Comment: Units = mL/min/1.73 [...] MD LAB BLOOD ORDERABLES Final R esult [facility] [address] [place] [address], [place] from Last 3 Months or Most Recently Relevant to Health Maintenance Insurance [facility]FREE CARE Care Teams Oim Consultant Relationship Specialty Start Date End Date Terra Cooper [address] [place] [address] PCP - General Family Medicine 06/07/19
--- OUTSIDE RECORDS SUMMARY | 2024-08-31 19:38 | XMS_ITS | Clinical Summary ---
Author Organization [employer] Address [address] [facility] [address] [place] [address] Care Team Providers Care Cigarette Package Examiner Name Role Phone Tu Vazquez MD Primary Care Prov ider Allergies Active Allergy Reactions Criticality Noted Date Comments Hydralazine Hives,Unknown 06/05/2019 Pork-Derived Products Shortness of breath High 06/23 Medications Fluocinolone Acetonide Scalp (Helena-Smoothe/ FS Scalp) 0.01 % oilIndications: Psoriasis Once a day on a damp scalp. Cover w/ a Durag. Wash in the morning. 118 mL 11 022 Active triamcinolone (Kenalog) 0.1 % creamIndication s:Psoriasis MIx with 16oz container of Cerave and apply daily from neck down after showering. 30 g 1 022 Active albuterol 108 (90 Base) MCG/ACT inhaler Inhale 1-2 puffs by mouth every 4 hours as needed. Use with spacer. Active betamethasone dipropionate (Diprolene) 0.05 % ointment APPLY A THIN LAYER TO THE AFFECTED AREA(s) DAILY 022 Active levothyroxine (Synthroid, Levoxyl) 75 MCG tablet TAKE ONE TABLET BY MOUTH EVERY DAY 30 tablet 11 023 Active cholecalciferol (Vitamin D-3) 25 MCG tablet TAKE ONE TABLET BY MOUTH EVERY DAY 30 tablet 3 023 Active cetirizine (ZyrTEC) 10 MG tablet TAKE ONE TABLET DAILY 30 tablet 023 Active venlafaxine XR (Effexor XR) 37.5 MG 24 hr capsuleIndicati ons:Hot flashes Take 1 capsule (37.5 mg) by mouth in the morning. Do not crush or chew. 30 capsule 11 023 Active ibuprofen 800 MG tabletIndicatio ns:Metacarpopha langeal joint pain of left hand Take 1 tablet (800 mg) by mouth 3 times daily. 90 tablet 023 Active atenolol (Tenormin) 50 MG tabletIndicatio ns:Primary hypertension TAKE ONE TABLET BY MOUTH EVERY DAY 90 tablet 3 024 Active hydroCHLOROthia zide (HYDRODiuril) 25 MG tablet TAKE ONE TABLET BY MOUTH EVERY MORNING 90 tablet 3 024 Active fluticasone (Flonase) 50 MCG/ACT nasal spray INHALE 1 - 2 SPRAYS IN EACH NOSTRIL ONCE DAILY IN THE MORNING 16 g 2 024 Active losartan (Cozaar) 100 MG tabletIndicatio ns:Primary hypertension TAKE ONE TABLET EVERY MORNING 90 tablet 1 024 Active fluticasone furoate (Arnuity Ellipta) 200 MCG/ACT inhaler Inhale 1 puff Once per day. 1 each 1 024 2024 Active ustekinumab (Stelara) injectionIndica tions:Psoriasis INJECT 0.5 ML SUBCUTANEOUSLY once 0.5 mL 025 Active terconazole (Terazol 7) 0.4 % vaginal cream Insert 1 applicator into the vagina at bedtime for 7 days. 45 g 025 2024 Active Stelara injection INJECT 0.5 ML SUBCUTANEOUSLY once 0.5 mL 024 2024 Discontinued Stelara injection INJECT 0.5 ML SUBCUTANEOUSLY ONCE 0.5 mL 025 2024 Discontinued(R eorder (will not trigger notification to Pharmacy)) Active Problems Problem Noted Date Diagnosed Date Acute cough 09/03/2023 Assessment & Plan (09/03/2023 4:29 PM EST): Patient with URI symptoms went to er, will provide benzonate to aid with cough episoide Lung nodule 09/03/2023 Assessment & Plan (09/03/2023 4:30 PM EST): Patient bal with left lung nodule incidentally on xray, will order a ct scan for further evaluation Psoriasis 01/26/2023 Precordial pain 07/28/2022 Assessment & Plan (07/28/2022 2:03 PM EST): Will refer to cardiology, for evaluation, she has both of her parents with CAD and brother recently had [place] Screening for colon cancer 07/28/2022 Assessment & Plan (05/02/2024 2:11 PM EDT): Patient now prefers cologuard, risk vs benefits discussed, will send kit Assessment & Plan (07/28/2022 2:03 PM EST): Will refer to Gi, she wants to go [place], Acquired hypothyroidism 07/27/2022 Assessment & Plan (05/02/2024 2:12 PM EDT): On levothyroxine 75mcg, new labs will be ordered for guidance Assessment & Plan (09/03/2023 4:28 PM EST): Clinically and chemically euthyroid, no changes will be amde Assessment & Plan (11/10/2022 2:55 PM EDT): Continue levothyroxine 75mcg, last labs from 07/23 were normal, will continue current treatment Assessment & Plan (07/28/2022 2:01 PM EST): Will order new labs for guidance of therapy Thyroid nodule 07/27/2022 Hypertension 08/17/2018 Overview (07/27/2022): Last Assessment & Plan: Hx of essential hypertension, managed by PCP. Currently taking atenlol 50mg QD, HCTZ 25mg QD and losartan 100mg dailt. BP well controlled this visit 115/76. She has been intolerant of hydralazine with facial swelling, SOB and nausea. - Continue current regimen Assessment & Plan (05/02/2024 2:13 PM EDT): Controlled, continue atenolol/losartan/hydrochlorothiazide keep bp log, continue low sodium diet and exercise as tolerated Assessment & Plan (03/17/2024 10:32 PM EDT): Controlled, continue low sodium diet and exercise as tolerated, follow up in 4 months keep bp log Continue losartan/hydrochlorothiazide/atenolol Assessment & Plan (09/03/2023 4:27 PM EST): Controlled, reinforced low sodium diet and exercise as tolerated, will follow up in 4 months Assessment & Plan (11/10/2022 2:56 PM EDT): Controlled, refers maintains below 140/90, reinforced low sodium diet and exercise as tolerated, continuelosartan/hctz/atenolol, will follow up in 3 months Assessment & Plan (07/28/2022 2:00 PM EST): Controlled, today was on the upper end, but refers contantly below 140/90, continue atenolol, hydrochlorothiazide and losartan. Reinforced low sodium diet Vitamin D deficiency 08/17/2018 Obesity 04/25/2018 Encounters Date Type Department Care Team Description 08/31/2024 11:30 AM EST Office Visit [facility] [address] [place] [address] Alpa Wade CNM Cervical cancer screening (Primary Dx); Candidiasis of vulva and vagina; Lump of thigh, left 08/31/2024 Travel 08/24/2024 Orders Only [facility] [address] [place] [address] Heath Maria MD Psoriasis (Primary Dx) 08/08/2024 Telephone [facility] [address] [place] [address] Heath Maria MD 08/08/2024 Refill [facility] [address] [place] [address] Tu Vazquez MD 07/11/2024 Telephone [facility] [address] [place] [address] Tu Vazquez MD Prior Authorization 07/10/2024 Orders Only [facility] [address] [place] [address] Tu Vazquez MD Screening-pulmonary TB (Primary Dx) 07/06/2024 Telephone [facility] [address] [place] [address] Tu Vazquez MD Stelara PA Denied 07/04/2024 Orders Only [facility] [address] [place] [address] Heath Maria MD 07/03/2024 Orders Only GENERIC EXTERNAL DATA DEPARTMENT Provider, Generic External Data 07/03/2024 Telephone [facility] [address] [place] [address] Tu Vazquez MD Walk-In 06/22/2024 Travel 06/07/2024 2:30 PM EST Office Visit [facility] [address] [place] [address] Edwin Del Valle, MONA Loss of retention of dental crown (Primary Dx) from Last 3 Months Immunizations Name Administration Dates Next Due Influenza injectable quadriv alent IIV4 with preservative 04/25/2019 Family History Medical History Relation Name Comments Breast cancer Maternal Grandmother Liver cancer Paternal Grandfather Relation Name Status Comments Maternal Grandmother Paternal Grandfather Social History Tobacco Use Types Packs/Day Years Used Date Smoking Tobacco: Never Passive Smoke Exposure: Never Smokeless Tobacco: Never Tobacco Cessation:Counseling Given: Not Answered Alcohol Use Standard Drinks/Week Comments Never 0 [...] Orientation Straight 06/01/2022 10 :31 AM EDT Last Filed Vital Signs Vital Sign Reading [...] Mass Index 41.16 08/31/2024 11:36 AM EST Plan of Treatment Upcoming Encounters Date Type Department Care Team (Late st Contact Info) Description 09/19/2024 11:15 AM EST Office Visit [facility] [address] [place] [address] Heath Maria MD [address] [place] [address] Health Maintenance Due Date Last Done Comments CT Colonography 1975 Colonoscopy 1975 FIT 1975 FOBT 1975 HIV Screening 1975 Sigmoidoscopy 1975 Family Planning (PISQ) 1989 Hepatitis C Screening 02/18/1992 DTaP/Tdap/Td Vaccines (1 - Tdap) 1993 Hepatitis B Vaccines (1 of 3 - 19+ 3-dose series) 1993 Depression Screening 07/28/2023 07/28/2022, 07/28/20 Pneumococcal Vaccine: 50+ Years (1 of 1 - PCV) 02/18/2024 Zoster Vaccines (1 of 2) 02/18/2024 COVID-19 Vaccine (3 - 2023- season) 2024 02/01/2021, 01/03/2021 Influenza Vaccine (#1) 2024 04/25/2019 Cervical Cancer Screening 08/31/2024 Pap Smear 08/31/2024 08/31/2023, 04/15/2021 SDOH Screening 09/02/2024 09/02/2023 Dental Oral Exam 11/08/2024 05/09/2024, 04/01/2023 Dental Prophylaxis 11/08/2024 05/09/2024, 0 04/01/2023, 08/20/2022 Diabetes: Hemoglobin A1C 05/09/2025 024, 07/30/2022, 01/20/2021 Dental X-Ray: Bitewings 05/10/2025 05/09/2024 Alcohol/Substance Use Screening 08/31/2025 08/31/2024 Tobacco Screening 08/31/2025 08/31/2024 Mammogram 12/01/2025 12/02/2023, 05/0 08/2022, 11/25/2021, Additional history exists HPV/Cotest 04/15/2026 04/15/2021 Dental X-Ray: Full Mouth 05/10/2027 05/09/2024 Colorectal Cancer Screening 05/18/2027 FIT DNA/Cologuard 05/18/2027 05/18/2024 Lipid Panel 05/09/2029 05/09/2024, 07/03, 12/12/2021, Additional history exists RSV Patients and Patients Aged 60 years or older (1 - 1-dose 75+ series) 2049 HIB Vaccines Aged Out No longer eligi ble based on patient's age to complete this topic HPV Vaccines Aged Out No longer eligi ble based on patient's age to complete this topic Hepatitis A Vaccines Aged Out No long er eligible based on patient's age to complete this topic IPV Vaccines Aged Out No longer eligi ble based on patient's age to complete this topic Meningococcal Vaccine Aged Out No cecille therese eligible based on patient's age to complete this topic RSV under 20 months Aged Out No longe r eligible based on patient's age to complete this topic Rotavirus Vaccines Aged Out No longer eligible based on patient's age to complete this topic Procedures Procedure Name Priority Date/Time Associated Diagnosis Comments POCT WET MOUNT/CHANA Routine 08/31/2024 12 :58 PM EST Candidiasis of vulva and vagina T-SPOT(R).TB Routine 07/17/2024 3:38 PM EST Screening-pulmonary TB SARS COV2/INFLUENZA A/B AND RSV RNA QL NAAT Routine 07/03/2024 9:40 PM EST [employer] GENER[employer] - PROFESSIONAL VISITS - CASE PRESENTATION, SUBSEQUENT TO DETAILED AND EXTENSIVE TREATMENT PLANNING Routine 06/07/2024 2:30 PM EST Loss of retention of dental crown 18 RE-CEMENT OR RE-CANALES CROWN Routine 06/07/2024 2:30 PM EST Loss of retention of dental crown LAB COLOGUARD?? COLON CANCER SCREEN Routine 05/18/2024 6:50 AM EDT Screening for colon cancer PROPHYLAXIS - ADULT Routine 05/09/2024 3 :00 PM EDT Dental caries Loss of retention of dental crown DIAGNOSTIC - DIAGNOSTIC IMAGING - INTRAORAL - COMPREHENSIVE SERIES OF RADIOGRAPHIC IMAGES Routine 05/09/2024 3:00 PM EDT Dental caries Loss of retention of dental crown PERIODIC ORAL EVALUATION - ESTABLISHED PATIENT Routine 05/09/2024 3:00 PM EDT Dental caries Loss of retention of dental crown HEMOGLOBIN A1C Routine 05/09/2024 8:18 AM EDT Class 2 severe obesity due to excess calories with serious comorbidity and body mass index (BMI) of 36.0 to 36.9 in adult ([facility]) LIPID PANEL, STANDARD Routine 05/09/2024 8:18 AM EDT Class 2 severe obesity due to excess calories with serious comorbidity and body mass index (BMI) of 36.0 to 36.9 in adult ([facility]) BI MAMMOGRAM SCREENING TOMOSYNTHESIS BILATERAL Routine 12/02/2023 2:40 PM EDT PAP SMEAR Routine 08/31/2023 1:30 PM EST Cervical cancer screening HPV MRNA E6/E7 Routine 04/15/2021 3:24 PM EDT from Last 3 Months or Most Recently Relevant to Health Maintenance Results * POCT fern test, vaginal fluid manually resulted (08/31/2024 12:58 PM EST) [facility] Positive Comment:pH 4.5, pos hyphae, neg clue, neg trich. neg wbc, neg whiff Vaginal Fluid Vaginal structure / Unknown 08/31/2024 12:58 PM EST Impressions Alpa Wade CNM - 08/31/2024 12:58 PM EST Vulvovaginal candidiasis Alpa Wade CNM POINT OF CARE TEST ENTER/ EDIT ORDERABLES Final Result * T-SPOT??.TB (07/17/2024 3:38 PM EST) T Spot TB Negative Negative [facility] Comment:A negative test resu lt does not exclude the possibilityof exposure to or infection with Mycobacteriumtuberculosis (M. tuberculosis). Patients with recentexposure to TB infected individuals exhibiting anegative T-SPOT.TB result should be considered forretesting within 6 weeks or if other relevant clinicalsymptoms indicate. Results from T-SPOT.TB testing mustbe used in conjunction with each individual'sepidemiological history, current medical status,and results of other diagnostic evaluations.The T-SPOT.TB test is qualitative and results arereported as positive, borderline, or negative, giventhat the test controls perform as expected. In linewith the Centers for Disease Control and Prevention's2010 recommendation to report quantitative measurementsalongside the qualitative result, the laboratoryprovides spot counts for informational purposes only.The T-SPOT.TB test should not be interpreted as aquantitative test. TS PANEL A 1 [facility] TS PANEL B 0 [facility] Negative Control Passed [facility] Positive Control Passed [facility] Comment:For additional infor mation, please refer tohttp://education.Fluidinfo/faq/DZZ977(This link is being provided for informational/educational purposes only.)THIS TEST WAS PERFORMED AT:[facility] [id number] [place] [id number] SHRESTHA MD,PHD 07/17/2024 3:38 PM EST 07/17/2024 5:22 PM EST us Tu Lemon MD LAB BLOOD ORDERABL ES Final Result [facility] [address] [place] [phone] * SARS-CoV-2 RNA, Influenza A/B, and RSV RNA, Ql NAAT (07/03/2024 9:40 PM EST) Influenza A PCR NEGATIVE Negative [facility] Influenza B PCR NEGATIVE Negative [facility] Resp Syncy Virus RNA Qual PCR NEGATIVE Negative [facility] SARS COV2 PCR NEGATIVE Negative [facility] Comment:All test results mus t be correlated with clinical findings.Negative results do not preclude SARS-CoV2, influenza Avirus, influenza B virus and/or RSV infectionand should not be used as the sole basis for treatment orother patient management decisions. Negative results must becombined with clinical observations, patient history, andepidemiological information.This test has not been evaluated for monitoring treatment ofinfection.This test has been authorized by the FDA under an EmergencyUse Authorization (EUA) for use by authorized laboratories.Testing performed on the [employer] GeneXpert utilizingreal-time RT-PCR.All SARS CoV2 and positive influenza A/B results arereported to [facility]. 07/03/2024 9:40 PM EST 07/03/2024 9:42 PM EST us Generic External Data Provider LAB MICROBIOLOGY - GENERAL ORDERABLES Final Result [facility] [address] [place] [phone] [phone] * Cologuard?? colon cancer screening (05/18/2024 6:50 AM EDT) Cologuard Result Negative Negative 05/25/20 8:47 PM EDT [employer] (CLIA #:[id number]) Comment: NEGATIVE TEST RESULT. A negative Cologuard result indicates a low likelihood that a colorectal cancer (CRC) or advanced adenoma (adenomatous polyps with more advanced pre-malignant features) ??is present. The chance that a person with a negative Cologuard test has a colorectal cancer is less than 1 in 1500 (negative predictive value >99.9%) or has an ??advanced adenoma is less than ??5.3% (negative predictive value 94.7%). These data are based on a prospective cross-sectional study of 10,000 individuals at average risk for colorectal cancer who were screened with both Cologuard and colonoscopy. (Redd Benjamin al, N Engl J Med 2014;370(14):1286- 1297) The normal value (reference range) for this assay is negative. COLOGUARD RE-SCREENING RECOMMENDATION: Periodic colorectal cancer screening is an important part of preventive healthcare for asymptomatic individuals at average risk for colorectal cancer. ??Following a negative Cologuard result, the [place] [employer] and U.S. Multi-Society Task Force screening guidelines recommend a Cologuard re-screening interval of 3 years. References: [place] [employer] Guideline for Colorectal Cancer Screening: https://www.cancer.org/cancer/whlsp-kdqkuo-ghksui/pcadsavkx-yrhravnsi-levssdz/ac s-rec ommendations.html.; Stewart DK, Tere CR, Love DíazK, Colorectal Cancer Screening: Recommendations for Physicians and Patients from the U.S. Multi-Society Task Force on Colorectal Cancer Screening , Am J Gastroenterology 2017; 112:5198-5230. TEST DESCRIPTION: Composite algorithmic analysis of stool DNA-biomarkers with hemoglobin immunoassay. ?? Quantitative values of individual biomarkers are not reportable and are not associated with individual biomarker result reference ranges. Cologuard is intended for colorectal cancer screening of adults of either sex, 45 years or older, who are at average-risk for colorectal cancer (CRC). Cologuard has been approved for use by the U.S. FDA. The performance of Cologuard was established in a cross sectional study of average-risk adults aged 50-84. Cologuard performance in patients ages 45 to 49 years was estimated by sub-group analysis of near-age groups. Colonoscopies performed for a positive result may find as the most clinically significant lesion: colorectal cancer [4.0%], advanced adenoma (including sessile serrated polyps greater than or equal to 1cm diameter) [20%] or non- advanced adenoma [31%]; or no colorectal neoplasia [45%]. These estimates are derived from a prospective cross-sectional screening study of 10,000 individuals at average risk for colorectal cancer who were screened with both Cologuard and colonoscopy. (Redd Benjamin al, N Engl J Med 2014;370(14):0119-4478.) Cologuard may produce a false negative or false positive result (no colorectal cancer or precancerous polyp present at colonoscopy follow up). A negative Cologuard test result does not guarantee the absence of CRC or advanced adenoma (pre-cancer). The current Cologuard screening interval is every 3 years. ([place] [employer] and U.S. Multi-Society Task Force). Cologuard performance data in a 10,000 patient pivotal study using colonoscopy as the reference method can be accessed at the following location: www.StowThat.Gumiyo/results. Additional description of the Cologuard test process, warnings and precautions can be found at www.Netformx.Gumiyo. Stool specimen (specimen) 05/18/2024 6:50 AM EDT 05/19/2024 12:41 PM EDT Tu Lemon MD LAB MOLECULAR DIAG NOSTICS ORDERABLES Final Result Performing Organization Address [facility] Co de Phone Number [facility] (CLIA #:[id number]) [place] [address], * Hemoglobin A1c (05/09/2024 8:18 AM EDT) Hemoglobin A1c 5.9 <6.0 % [facility] Comment:Hemoglobin A1C Refer ence Range Adults: 4.8 - 6.0 % Non diabetic: < 6.0 % Goal: < 7.0 %Additional Action Suggested: > 8.0 %Note: Hemoglobin A1c results are invalid for patients with abnormal amounts of HbF. Blood transfusions may impact the HbA1c concentration in the patient sample. Estimated Average Glucose 123 mg/dL [facility] Comment:eAG = Estimated ave rage glucose which is %A1C expressed asaverage glucose, using the formula of the M1B-XxxzmlmLtfdson Glucose study (ADAG), Diabetes Care, Vol.31,#8,Mar. 2007 Blood Venous blood specimen / Unknown 05/09/2024 8:18 AM EDT 05/09/2024 5:54 PM EDT Tu Lemon MD LAB BLOOD ORDERABL ES Final Result Performing Organization Address [facility] Co de Phone Number [facility] [address] [place] [address] [phone] * (ABNORMAL) Lipid Panel, Standard (05/09/2024 8:18 AM EDT) Triglycerides 169(H) <150 mg/dL [facility] Comment:Desirable Triglyceri de: less than 150 mg/dLBorderline High Triglyceride 150-199 mg/dLHigh Triglyceride: 200-499 mg/dLVery High Triglyceride: greater than or equal to 5OO mg/dL Cholesterol 212(H) <200 mg/dL [facility] Comment:Desirable Cholestero l: less than 200 mg/dLBorderline High Cholesterol: 200-239 mg/dLHigh Cholesterol: greater than 239 mg/dL LDL Cholesterol Calculated 123(H) <100 mg/dL [facility] Comment:Desirable LDL: less than 100 mg/dLNear Optimal/Above Optimal LDL: 110- 129 mg/dLBorderline High LDL: 130-159 mg/dLHigh LDL: 160-189 mg/dLVery High LDL: greater than or equal to 190 mg/dL HDL Cholesterol 56 >40 mg/dL [facility] Comment:Desirable HDL: great er than 40 mg/dL Note: This HDL assay may give artificially low results in patients with liver disease. Blood Venous blood specimen / Unknown 05/09/2024 8:18 AM EDT 05/09/2024 5:54 PM EDT Tu Lemon MD LAB BLOOD ORDERABL ES Final Result Performing Organization Address [facility]/State/ZIP Co de Phone Number [facility] [address] [place] [address] [phone] * BI Mammogram Screening Tomosynthesis Bilateral (12/02/2023 2:40 PM EDT) Anatomical Region Laterality Modality Breast Bilateral Mammography 12/02/2023 2:40 PM EDT Narrative 12/27/2023 12:41 PM EDT ? [facility] ? [address] ?[place] [address] ? Mammography Report ? Signed ? Patient: Burton Waldrop,Elizabeth ?MR#: ?? [id number] ? : 1975 ?Acct:[id number] ? Age/Sex: 48 / F ?ADM Date: 05/02/24 ? Loc: HO.MAMMO ? Attending Dr: Tu Lemon MD ? Ordering Physician: Tu Vazquez MD ?Res ?? ults: 1Negative ? Date of Service: 12/02/23 ?Follow Up: 1 Year From Orig ?? inal Mammogram ? Procedure(s): MM tomosynthesis screening BI ?? Accession Number(s): [id number] ? cc: Tu Vazquez MD ? EXAMINATION: ?? MM SCREENING DIGITAL BREAST TOMOSYNTHESIS, BILATERAL ? CLINICAL INFORMATION: ? Screening. Asymptomatic. ? COMPARISON: ?? Mammography: This study is compared with prior exams dating back to ?? 2019. ? TECHNIQUE: ?? Digital breast tomosynthesis is performed in both the craniocaudal and ?? mediolateral oblique views along with computer-aided detection (CAD). ?? Synthesized 2D images are generated from the tomosynthesis. ? FINDINGS: ?? There are scattered areas of fibroglandular density (ACR BI-RADS breast ?? composition Category b). ? There are no significant masses, abnormal calcifications, or other ?? abnormalities. ? MM/MM tomosynthesis screening BI ?? IMPRESSION: ?? No mammographic evidence of malignancy. ? ASSESSMENT: ? BI-RADS BI-RADS 1 - Negative ? RECOMMENDATION: ?? Routine annual mammography screening. ? 1 year F/U ? This examination should not preclude the clinical evaluation of a ?? suspicious palpable abnormality. ? This patient's information was entered into a reminder system with a ?? target due date for their next mammogram. ? Dictated By: ?Chelsy Hernandez MD ? Signed By: ?<Electronically signed by Chelsy Hernandez MD in OV> ? 12/27/23 1237 ? DD/ 39 ? TD/TT: ? Greige Goods Marker: ? Procedure Note Donotuseinterpreter, Image - 12/27/2023 [place] [facility] [address] [place] [address] Mammography Report Signed Patient: Stella CoronaR#: [id number] : 1975Acct:[id number] Age/Sex: 48 / FADM Date: 12/02/23 Loc: HO.MAMMO Attending Dr: Tu Lemon MD Ordering Physician: Tu Vazquez ults: 1Negative Date of Service: 12/02/23Follow Up: 1 Year From Orig inal Mammogram Procedure(s): MM tomosynthesis screening BI Accession Number(s): [id number] cc: Tu Vazquez MD EXAMINATION: MM SCREENING DIGITAL BREAST TOMOSYNTHESIS, BILATERAL CLINICAL INFORMATION: Screening. Asymptomatic. COMPARISON: Mammography: This study is compared with prior exams dating back to 2019. TECHNIQUE: Digital breast tomosynthesis is performed in both the craniocaudal and mediolateral oblique views along with computer-aided detection (CAD). Synthesized 2D images are generated from the tomosynthesis. FINDINGS: There are scattered areas of fibroglandular density (ACR BI-RADS breast composition Category b). There are no significant masses, abnormal calcifications, or other abnormalities. MM/MM tomosynthesis screening BI IMPRESSION: No mammographic evidence of malignancy. ASSESSMENT: BI-RADS BI-RADS 1 - Negative RECOMMENDATION: Routine annual mammography screening. 1 year F/U This examination should not preclude the clinical evaluation of a suspicious palpable abnormality. This patient's information was entered into a reminder system with a target due date for their next mammogram. Dictated By: Chelsy Hernandez MD Signed By: <Electronically signed by Chelsy Hernandez MD in OV> 12/27/23 1237 DD/ 1440 TD/TT: Greige Goods Marker: Tu Lemon MD IMG BI PROCEDURES Final Result * Pap Smear (08/31/2023 1:30 PM EST) Swab Cervix uteri structure / Unknown 08/31/2023 1:30 PM EST 09/02/2023 9:50 AM EST [facility] - 09/15/2023 6:58 AM EST ----- ------- Name: Elizabeth Corona ?Age/Sex: 48/F ? : 1975 Unit#: [id number] ?? Attend Dr: ALPA WADE CNM ?Re08/31/23 ?Status: DEP REF ? Location: HO.CHCLNP ? Disch: ? ----- ------- SPEC : [id number] ? RECD: 09/02/23-949 ? STATUS: ??SOUT ? REQ NUM: [id number] ? LACEY: 08/31/23-1329 ? SUBM DR: ALPA WADE CNM ? ENTERED: ??09/02/23 ?SP TYPE: Pap Smr ?OTHR : ? ORDERED: ??Pap Smear ? Interpretation ?? Satisfactory for evaluation. ?? Negative for intraepithelial lesion or malignancy. ?Clinical Information LMP: Unknown date Previous PAP test: Unknown date/findings Other history: On immunosuppressant ? Material Received ?? ThinPrep-Cervical ----- ------- Signed (signature on file) SEBASTIAN Ramirez (ASCP) 09/15/23 0658 ? ----- ------- ? END OF REPORT ? Alpa [facility] LAB CYTOLOGY ORDERABLES F inal Result [facility] [address] [place] [address] [phone] * HPV mRNA E6/E7 (04/15/2021 3:24 PM EDT) HPV nRNA E6/E7 Not Detected Not Detected [facility] Comment: Methodology: Color Shop Helper-Mediated Amplification This assay detects E6/E7 viral messenger RNA (mRNA) from 14 high-risk HPV types (16,18,31,33,35,39,45,51,52,56,58,59,66,68). ? The analytical performance characteristics of this assay have been determined by [employer]. The modifications have not been cleared or approved by the FDA. This assay has been validated pursuant to the CLIA regulations and is used for clinical purposes. ?? For additional information, please refer to http://education.Fluidinfo/faq/ZDT194h9 (This link if provided for information/ educational purposes only.) 04/15/2021 3:24 PM EDT Alpa LOPEZ LAB BLOOD ORDERABLES Nury l Result Performing Organization Address City/[facility] Co de Phone Number [facility] [address] from Last 3 Months or Most Recently Relevant to Health Maintenance Insurance [facility] HSN PARTIAL DENTAL - HSN PARTIAL (MEDICAID) Care Teams Cigarette Package Examiner Relationship Specialty Start Date End Date JohnsonTu Corado MD [address] [place] [id number] PCP - General Internal Medicine 12/26/19
== END 2024-08-31 16:24 | disposition home or self-care (01) ==
LOC: HO.HHCLNP 16:23
PROVIDERS: Visit Provider Advanced Practice Midwife
DX: Z13.89 Encounter for screening for other disorder (principal)

== ENCOUNTER 2024-11-15 08:29 | Outpatient (REF) | payer OTHER, SELFPAY ==
--- OUTSIDE RECORDS SUMMARY | 2024-11-15 08:45 | XMS_ITS | Encounter Summary ---
Author Organization [employer] Address [address] [facility] 7 [place] [address] Care Team Providers Care Hydroelectric Component Machinist Name Role Phone Tu Vazquez MD Primary Care Prov ider Reason for Visit * Reason Onset Date Comments Medication Question 09/26/2024 Encounter Details Date Type Department Care Team ([facility] st Contact Info) Description 09/26/2024 Telephone [facility] CH[facility] MED & PEDS [address] [place] [address] Tu Vazquez MD [address] [place] [address] Medication Question Social History Tobacco Use Types Packs/Day Years [...] encounter Miscellaneous Notes * Telephone Encounter - Candace Johnson RN - 09/27/2024 11:07 AM EST TC placed to [facility] specialty pharmacy to inquire on what information is needed regarding the pt Stelara injection prescription. Per [facility], the provider needs to write specifically how often the injectionis given (ie every 6-8 weeks). [facility] was informed that this is a continuation of the medication and the dose will remain the same. * Telephone Encounter - Sonia Rashid - 09/26/2024 11:21 AM EST TC from [place] [facility] description clarification on medication ustekinumab (Stelara) injection . Would like to know how often and if its a starter dose. Best contact # [phone] [facility] [phone]. . documented in this encounter Plan of Treatment Upcoming Encounters Date Type Department Care Team (Late st Contact Info) Description 12/05/2024 3:00 PM EDT Office Visit [facility] ADULT DENTAL [address] [facility] [place] [address] Saqib Maria documented as of this encounter Visit Diagnoses Not on filedocumented in this encounter Additional Health Concerns Assessment Noted Time PHQ-9 Depression Total Score: 0 07/28/20 22 1:55 PM EST documented as of this encounter Care Teams Hydroelectric Component Machinist Relationship Specialty Start Date End Date Johnson Lemon, Tu, MD [address] [place] [phone] PCP - General Internal Medicine 12/26/19 documented as of this encounter
--- OUTSIDE RECORDS SUMMARY | 2024-11-15 08:45 | XMS_ITS | Clinical Summary ---
Author Organization [employer] Address [address] [facility] 7t [place] [address] Care Team Providers Care Skiver Counter Name Role Phone Tu Vazquez MD Primary Care Prov ider Allergies Active Allergy Reactions Criticality Noted Date Comments Hydralazine Hives,Unknown 06/05/2019 Pork-Derived Products Shortness of breath High 06/23 Medications Fluocinolone Acetonide Scalp (Nimmons-Smoothe/ FS Scalp) 0.01 % oilIndications: Psoriasis Once a day on a damp scalp. Cover w/ a Durag. Wash in the morning. 118 mL 11 07/21/20 22 Active triamcinolone (Kenalog) 0.1 % creamIndication s:Psoriasis MIx with 16oz container of Cerave and apply daily from neck down after showering. 30 g 1 07/23/20 22 Active betamethasone dipropionate (Diprolene) 0.05 % ointment APPLY A THIN LAYER TO THE AFFECTED AREA(s) DAILY 03/30/20 22 Active cholecalciferol (Vitamin D-3) 25 MCG tablet TAKE ONE TABLET BY MOUTH EVERY DAY 30 tablet 3 05/15/20 23 Active cetirizine (ZyrTEC) 10 MG tablet TAKE ONE TABLET DAILY 30 tablet 05/15/20 23 Active venlafaxine XR (Effexor XR) 37.5 MG 24 hr capsuleIndicati ons:Hot flashes Take 1 capsule (37.5 mg) by mouth in the morning. Do not crush or chew. 30 capsule 11 06/01/20 23 Active ibuprofen 800 MG tabletIndicatio ns:Metacarpopha langeal joint pain of left hand Take 1 tablet (800 mg) by mouth 3 times daily. 90 tablet 06/01/20 23 Active atenolol (Tenormin) 50 MG tabletIndicatio ns:Primary hypertension TAKE ONE TABLET BY MOUTH EVERY DAY 90 tablet 3 11/05/19 24 Active hydroCHLOROthia zide (HYDRODiuril) 25 MG tablet TAKE ONE TABLET BY MOUTH EVERY MORNING 90 tablet 3 11/26/19 24 Active fluticasone (Flonase) 50 MCG/ACT nasal spray INHALE 1 - 2 SPRAYS IN EACH NOSTRIL ONCE DAILY IN THE MORNING 16 g 2 12/22/19 24 Active levothyroxine (Synthroid, Levoxyl) 75 MCG tablet TAKE ONE TABLET BY MOUTH EVERY DAY 30 tablet 11 09/12/19 25 Active ustekinumab (Stelara) injectionIndica tions:Psoriasis 45 mg every 12 weeks 0.5 mL 09/27/19 25 Active ustekinumab (Stelara) injectionIndica tions:Psoriasis 45 mg every 12 weeks 0.5 mL 09/27/19 25 Active losartan (Cozaar) 100 MG tabletIndicatio ns:Primary hypertension TAKE ONE TABLET EVERY MORNING 90 tablet 1 10/07/19 25 Active albuterol 108 (90 Base) MCG/ACT inhaler Inhale 2 puffs every 6 (six) hours if needed for wheezing. 18 g 1 10/31/19 25 Active fluticasone furoate (Arnuity Ellipta) 200 MCG/ACT inhaler Inhale 1 puff Once per day. 30 each 2 10/31/19 25 026 Active albuterol 108 (90 Base) MCG/ACT inhaler Inhale 1-2 puffs by mouth every 4 hours as needed. Use with spacer. 025 Discontinued(Re order (will not trigger notification to Pharmacy)) fluticasone furoate (Arnuity Ellipta) 200 MCG/ACT inhaler Inhale 1 puff Once per day. 1 each 1 05/25/20 24 025 Discontinued(Re order (will not trigger notification to Pharmacy)) Active [...] parents with CAD and brother recently had [place] Screening for colon cancer 07/28/2022 Assessment & Plan (05/02/2024 2:11 PM EDT): Patient now prefers cologuard, risk vs benefits discussed, will send kit Assessment & Plan (07/28/2022 2:03 PM EST): Will refer to Gi, she wants to go to [place], Acquired hypothyroidism 07/27/2022 Assessment & Plan (10/30/2024 10:20 AM EDT): Clinically euthyroid, will order new labs for guidance of therapy Assessment & Plan (05/02/2024 2:12 PM EDT): [...] - Continue current regimen Assessment & Plan (10/30/2024 10:18 AM EDT): Controlled, keep low sodium diet and exercise, keep bp log, target <140/90, new labs will be ordered, follow up in 4 months Assessment & Plan (05/02/2024 2:13 PM EDT): [...] Encounters Date Type Department Care Team Description 10/30/2024 8:45 AM EDT Telemedicine [facility] CHC MED & PEDS [address] [place] [address] Tu Vazquez MD Primary hypertension (Primary Dx); Acquired hypothyroidism 10/06/2024 Refill [facility] [address] [place] [address] Tu Vazquez MD Primary hypertension 09/27/2024 Orders Only [facility] MEDICINE [address] [place] [phone] Heath Maria MD Psoriasis 09/26/2024 Telephone [facility] [address] [place] [address] Tu Vazquez MD Medication Question 09/20/[address] [address] Alpa Wade CNM Results; Referral 09/19/2024 11:15 AM EST Office Visit [facility] [address] [place] [address] Heath Maria MD Psoriasis (Primary Dx); Psoriasis 09/19/2024 Travel 09/19/2024 Orders Only [facility] [address] [place] [address] Heath Maria MD Psoriasis 09/14/2024 Telephone [facility] [address] [place] [address] Heath Maria MD Stelera Question 09/13/2024 Refill [facility] [address] [place] [address] Tu Vazquez MD Psoriasis 09/13/2024 Telephone [facility] [address] [place] [address] Tu Vazquez MD Med Refill 09/04/2024 Refill [facility] MEDICINE [address] [place] [phone] Tu Vazquez MD 08/31/2024 11:30 AM EST Office Visit [address] [address] Alpa Wade CNM Cervical cancer screening (Primary Dx); Candidiasis of vulva and vagina; Lump of thigh, left 08/31/2024 Orders Only [facility] MEDICINE [address] [place] [address] Alpa Wade CNM 08/31/2024 Travel 08/24/2024 Orders Only [facility] MED & PEDS [address] [place] [address] Heath Maria MD Psoriasis (Primary Dx) from Last 3 Months Immunizations [...] Answer Date Recorded Patient Health Questionnaire-9 Score 3 10/30/2024 Patient Health Questionnaire-9 Score 3 10/30/2024 Last PHQ-9: Questionnaire Data Not on file 0 10/30/2024 Housing Stability Answer Date Recorded What is [...] Answer Date Recorded Patient Health Questionnaire-2 Score 1 10/30/2024 Comments No Sex and Gender Information Value Date Recorded Sex Assigned at Female 06/01/2022 10:31 AM EDT Legal Sex Female 10:31 AM EDT Gender Identity Female 06/01/2022 10:31 AM EDT Sexual Orientation Straight 06/01/2022 10 :31 AM EDT Last Filed Vital Signs Vital Sign Reading Time Taken Comments Blood Pressure 134/86 10/30/2024 9:17 AM EDT Pulse 74 09/19/2024 10:59 AM EST Temperature 36.7 ??C (98 ??F) 09/19/2024 10:59 AM EST Respiratory Rate 20 09/19/2024 10:59 AM EST Oxygen Saturation 98% 09/19/2024 10:59 AM EST Inhaled Oxygen Concentration - - Weight 91.2 kg (201 lb) 09/19/2024 10:59 AM EST Height 154.9 cm (5' 1 ) 09/19/2024 10:59 AM EST Body Mass Index 37.98 09/19/2024 10:59 AM EST Plan of Treatment Upcoming Encounters Date Type Department Care Team (Late st Contact Info) Description 12/05/2024 3:00 PM EDT Office Visit [facility] ADULT D[facility] [address] [place] [address] Saqib Maria Health Maintenance Due Date Last Done Comments CT Colonography 1975 Colonoscopy 1975 FIT 1975 FOBT 1975 HIV Screening 1975 Sigmoidoscopy 1975 Family Planning (PISQ) 1989 Hepatitis C Screening 02/18/1992 DTaP/Tdap/Td Vaccines (1 - Tdap) 1993 Hepatitis B Vaccines (1 of 3 - 19+ 3-dose series) 1993 Pneumococcal Vaccine: 50+ Years (1 of 1 - PCV) 02/18/2024 Zoster Vaccines (1 of 2) 02/18/2024 COVID-19 Vaccine (3 - 2023-25 season) 2024 02/01/2021, 01/03/2021 Influenza Vaccine (#1) 2024 04/25/2019 SDOH Screening 09/02/2024 09/02/2023 Dental Oral Exam 11/08/2024 05/09/2024, 04/01/2023 Dental Prophylaxis 11/08/2024 05/09/2024, 0 04/01/2023, 08/20/2022 Diabetes: Hemoglobin A1C 05/09/2025 024, 07/30/2022, 01/20/2021 Dental X-Ray: Bitewings 05/10/2025 05/09/2024 Cervical Cancer Screening 08/31/2025 Pap Smear 08/31/2025 08/31/2024, 08/04, 04/15/2021 Tobacco Screening 09/19/2025 09/19/2024 Alcohol/Substance Use Screening 10/30/2025 10/30/2024 Depression Screening 10/30/2025 10/30/2024, 10/31/19 25 Mammogram 12/01/2025 12/02/2023, 05/0 08/2022, 11/25/2021, Additional history exists Dental X-Ray: Full Mouth 05/10/2027 05/09/2024 Colorectal Cancer Screening 05/18/2027 FIT DNA/Cologuard 05/18/2027 05/18/2024 Lipid Panel 05/09/2029 05/09/2024, 12/04/2022, 12/12/2021, Additional history exists HPV/Cotest 08/31/2029 08/31/2024, 04/15/2021 RSV Patients and Patients Aged 60 years [...] Procedure Name Priority Date/Time Associated Diagnosis Comments US LOWER EXTREMITY, SOFT TISSUE Urgent 09/15/2024 Lump of thigh, left POCT WET MOUNT/CHANA Routine 08/31/2024 12 :58 PM EST Candidiasis of vulva and vagina PAP SMEAR Routine 08/31/2024 12:32 PM EST Cervical cancer screening HPV DNA, LOW/HIGH RISK Routine 12:32 PM EST LAB COLOGUARD?? COLON CANCER SCREEN Routine 05/18/2024 6:50 AM EDT Screening for colon cancer PROPHYLAXIS - ADULT Routine 05/09/2024 3 :00 PM EDT Dental caries Loss of retention of dental crown INTRAORAL - COMPLETE SERIES OF RADIOGRAPHIC IMAGES Routine 05/09/2024 3:00 [...] (BMI) of 36.0 to 36.9 in adult (CMS/HCC) LIPID PANEL, STANDARD Routine 05/09/2024 8:18 AM EDT Class 2 severe obesity due to excess calories with serious comorbidity and body mass index (BMI) of 36.0 to 36.9 in adult (CMS/HCC) BI MAMMOGRAM SCREENING TOMOSYNTHESIS BILATERAL Routine 12/02/2023 2:40 PM EDT from Last 3 Months or Most Recently Relevant to Health Maintenance Results * US LOWER EXTREMITY, SOFT TISSUE (09/15/2024) Anatomical Region Laterality Modality Abdomen Ultrasound us Alpa Wade CNM IM US PROCEDURES Final R esult * POCT fern test, vaginal fluid manually resulted (08/31/2024 12:58 PM EST) [facility] Prep Positive Comment:pH 4.5, pos hyphae, neg clue, neg trich. neg wbc, neg whiff Vaginal Fluid Vaginal structure / Unknown 08/31/2024 12:58 PM EST Josefas Alpa Wade CNM - 08/31/2024 12:58 PM EST Vulvovaginal candidiasis Alpa LOPEZ POINT OF CARE TEST ENTER/ EDIT ORDERABLES Final Result * HPV DNA, Low/High Risk (08/31/2024 12:32 PM EST) HPV High Risk Negative Negative [facility] HPV Genotype 16 Negative Negative [facility] HPV Genotype 18 Negative Negative [facility] Comment:HPV testing performe d at [facility] (CLIA#[id number]), [address] [place] [address].Testing for HPV was performed using the Gracia LUCY ImpactFlo0system. The presence of HPV in the female genital tract isassociated with a number of diseases, including cervicalcarcinoma. The HPV DNA high risk pool tests for HPV 31, 33,35, 39, 45, 51, 52, 56, 58, 59, 66 and 68. The testing forHPV 16 and 18 genotypes has also been performed. A positiveresult indicates detection of nucleic acid sequences fromone or more subtypes, whereas a negative result indicatessuch sequences were not detected. 08/31/2024 12:3 2 PM EST 09/01/2024 7:25 AM EST Alpa Wade [facility] BLOOD ORDERABLES Nury l Result [facility] [address] [place] [address] [phone] * Pap Smear (08/31/2024 12:32 PM EST) Swab Cervix uteri structure / Unknown 08/31/2024 12:32 PM EST 09/01/2024 6:30 AM EST Narrative [facility] - 09/12/2024 12:29 PM EST ----- ------- Name: Elizabeth Corona ?Age/Sex: 49/F ? : 1975 Unit#: [id number] ?? Attend Dr: ALPA WADE CNM ?Re08/31/24 ?Status: DEP REF ? Location: HO.LNP ?Disch: ? ----- ------- SPEC : [id number] ? RECD: 09/01/24 ? STATUS: ??SOUT ? REQ NUM: [id number] ? LACEY: 08/31/24-1232 ? SUBM DR: ALPA WADE CNM ? ENTERED: ??09/01/24 ?SP TYPE: Pap Smr ?OTHR : ? ORDERED: ??Pap Smear ? Interpretation ?? Satisfactory for evaluation. ?? Negative for intraepithelial lesion or malignancy. ?? No endocervical cells seen. ? HPV High Risk: ??Negative ? HPV Genotyping 16: ??Negative ?? HPV Genotyping 18: ??Negative ?Clinical Information LMP: Previous PAP test: 2023 Other surgery: Other history: ? Material Received ?? ThinPrep-Cervical ----- ------- Signed (signature on file) SEBASTIAN Miranda (ASCP) 09/12/24 1229 ? ----- ------- ? END OF REPORT ? us Alpa Wade [facility] CYTOLOGY ORDERABLES F inal Result [facility] [address] [place] [address] [phone] * Cologuard?? colon cancer screening (05/18/2024 6:50 AM EDT) Cologuard Result Negative Negative 05/25/20 8:47 PM EDT [facility] (CLIA #:[id number]) Comment: NEGATIVE TEST RESULT. A negative Cologuard [...] cancer. ??Following a negative Cologuard result, the [place] Cancer Society and U.S. Multi-Society Task Force screening guidelines recommend a Cologuard re-screening interval of 3 years. References: [place] [employer] Guideline for Colorectal Cancer Screening: https://www.cancer.org/cancer/jivmf-vfwumv-xsbrvq/hukqktbqd-sbokmrdcc-xmcwmqj/ac s-rec ommendations.html.; Stewart DK, Tere CR, Love DíazK, Colorectal Cancer Screening: Recommendations for Physicians and Patients from the U.S. Multi-Society Task Force on Colorectal Cancer Screening , Am J Gastroenterology 2017; 112:3601-3933. TEST DESCRIPTION: Composite algorithmic analysis of stool [...] (Redd Benjamin al, N Engl J Med 2014;370(14):3079-5118.) Cologuard may produce a false negative or false positive result (no colorectal cancer or precancerous polyp present at colonoscopy follow up). A negative Cologuard test result does not guarantee the absence of CRC or advanced adenoma (pre-cancer). The current Cologuard screening interval is every 3 years. ([place] Cancer Society and U.S. Multi-Society Task Force). Cologuard performance data in a 10,000 patient pivotal study using colonoscopy as the reference method can be accessed at the following location: www.Azuki (Vozero/Gengibre).Jingit/results. Additional description of the Cologuard test process, warnings and precautions can be found at www.PayByGroup[employer]Pure E[employer]ies Grouprd.com. Stool specimen (specimen) 05/18/2024 6:50 AM EDT 05/19/2024 12:41 PM EDT Tu Lemon MD LAB MOLECULAR DIAG NOSTICS ORDERABLES Final Result [facility] (CLIA #:[id number]) [place] [place] [address], * Hemoglobin A1c (05/09/2024 8:18 AM EDT) Hemoglobin A1c 5.9 <6.0 % [facility] Comment:Hemoglobin A1C Refer ence Range Adults: 4.8 - 6.0 % Non diabetic: < 6.0 % Goal: < 7.0 %Additional Action Suggested: > 8.0 %Note: Hemoglobin A1c results are invalid for patients with abnormal amounts of HbF. Blood transfusions may impact the HbA1c concentration in the patient sample. Estimated Average Glucose 123 mg/dL [facility] Comment:eAG = Estimated ave rage glucose which is %A1C expressed asaverage glucose, using the formula of the M2R-ImchcegGbebcgy Glucose study (ADAG), Diabetes Care, Vol.31,#8,Mar. 2007 Blood Venous blood specimen / Unknown 05/09/2024 8:18 AM EDT 05/09/2024 5:54 PM EDT us Tu Lemon MD LAB BLOOD ORDERABL ES Final Result [facility] [address] [place] [address] [phone] * (ABNORMAL) Lipid Panel, Standard (05/09/2024 8:18 AM EDT) Triglycerides 169(H) <150 mg/dL [facility] Comment:Desirable Triglyceri de: less than 150 mg/dLBorderline High Triglyceride 150-199 mg/dLHigh Triglyceride: 200-499 mg/dLVery High Triglyceride: greater than or equal to 5OO mg/dL Cholesterol 212(H) <200 mg/dL [facility] Comment:Desirable Cholestero l: less than 200 mg/dLBorderline High Cholesterol: 200-239 mg/dLHigh Cholesterol: greater than 239 mg/dL LDL Cholesterol Calculated 123(H) <100 mg/dL [facility] Comment:Desirable LDL: less than 100 mg/dLNear Optimal/Above Optimal LDL: 110- 129 mg/dLBorderline High LDL: 130-159 mg/dLHigh LDL: 160-189 mg/dLVery High LDL: greater than or equal to 190 mg/dL HDL Cholesterol 56 >40 mg/dL [facility] Comment:Desirable HDL: great er than 40 mg/dL Note: This HDL assay may give artificially low results in patients with liver disease. Blood Venous blood specimen / Unknown 05/09/2024 8:18 AM EDT 05/09/2024 5:54 PM EDT us Tu Lemon MD LAB BLOOD ORDERABL ES Final Result [facility] [address] [place] [address] [phone] * BI Mammogram Screening Tomosynthesis Bilateral (12/02/2023 2:40 PM EDT) Anatomical Region Laterality Modality Breast Bilateral Mammography 12/02/2023 2:40 PM EDT Narrative 12/27/2023 12:41 PM EDT ? [facility] [place] ? [address] ?[place] [address] ? Mammography Report ? Signed ? Patient: Burton Waldrop,Elizabeth ?MR#: ?? [id number] ? : 1975 ?Acct:[id number] ? Age/Sex: 48 / F ?ADM Date: 12/02/23 ? Loc: HO.MAMMO ? Attending Dr: Tu Lemon MD ? Ordering Physician: Tu Vazquez MD ?Res ?? ults: 1Negative ? Date of Service: 12/02/23 ?Follow Up: 1 Year From Orig ?? inal Mammogram ? Procedure(s): MM tomosynthesis screening BI ?? Accession Number(s): [id number] ? cc: Tu Vazquez MD ? EXAMINATION: ?? MM SCREENING DIGITAL BREAST TOMOSYNTHESIS, BILATERAL ? CLINICAL INFORMATION: ? Screening. Asymptomatic. ? COMPARISON: ?? Mammography: This study is compared with prior exams dating back to ?? 2018. ? TECHNIQUE: ?? Digital breast tomosynthesis is [...] 1237 ? DD/ 1440 ? TD/TT: ? Throat Cutter: ? Procedure Note Troy Vuong - 12/27/2023 [facility] [address] [place] [address] Dr. Wh[place], [place] [address] Mammography Report Signed Patient: Kip CoronaeMR#: [id number] : 1975Acct:[id number] Age/Sex: 48 / FADM Date: 12/02/23 Loc: HO.MAMMO Attending Dr: Tu Lemon MD Ordering Physician: Tu Vazquez ults: 1Negative Date of Service: 12/02/23Follow Up: 1 Year From Orig inal Mammogram Procedure(s): MM tomosynthesis screening BI Accession Number(s): [id number] cc: Tu Vazquez MD EXAMINATION: MM SCREENING [...] in OV> 12/27/23 1237 DD/ 1440 TD/TT: Throat Cutter: Tu Lemon MD IMG BI PROCEDURES Final Result from Last 3 Months or Most Recently Relevant to Health Maintenance Insurance [facility] - HSN PARTIAL (MEDICAID) Care Teams Skiver Counter Relationship Specialty Start Date End Date Tu Vazquez MD [address] [place] [phone] PCP - General Internal Medicine 12/26/19
--- OUTSIDE RECORDS SUMMARY | 2024-11-15 08:45 | XMS_ITS | Clinical Summary ---
Author Organization [facility] Address [address] [place] [address] Care Team Providers Care Fishing Vessel Deckhand Name Role Phone Terra Cooper Primary Care Provider Allergies Active Allergy Reactions Criticality Noted Date [...] (06/23/2019 7:09 PM EST): History of fatal OH in both of her parents. 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 Not on file Not [...] (1 of 3 - 19+ 3-dose series) 01/30 DTaP,Tdap,and Td Vaccines (1 - Tdap) 02/18/1996 Mammogram 2014 Basic Metabolic Panel 06/23/2020 06/23/2019 Pneumococcal Vaccine: 50+ Years (1 of 1 - PCV) 024 Zoster Vaccines (1 of 2) 02/18/2024 COVID-19 Vaccine (1 - 2023- season) 2024 Alcohol/Substance Use Screening 08/02/2024 Depression Screening and Follow-Up 08/02/2024 Social Drivers of Health Annual Screening 08/02/2024 Influenza Vaccine (Season Ended) 2025 04/25/20 19 RSV Vaccine (60+ years old a nd patients) (1 - 1-dose 75+ series) 2049 Procedures * Due to [place] auto[employer] law, this organization might not be sharing negative HIV tests. Procedure Name Priority Date/Time Associated Diagnosis Comments BASIC METABOLIC PANEL Routine 06/23/2019 3:05 PM EST Essential hypertension from Last 3 Months or Most Recently Relevant to Health Maintenance Results * Due to [place] [employer] law, this organization might not be sharing negative HIV tests. * Basic metabolic panel (06/23/2019 3:05 PM EST) NA 137 135 - 145 mmol/L 06/23/2019 3:58 PM EST [facility] K 3.9 3.5 - 5.3 mmol/L 06/23/2019 3:58 PM [facility] Cl 100 97 - 110 mmol/L 06/23/2019 3:58 PM [facility] CO2 29 24 - 32 mmol/L 06/23/2019 3:58 PM [facility] BUN 14 7 - 23 mg/dL 06/23/2019 3:58 PM [facility] Creatinine 0.70 0.50 - 1.20 mg/dL 06/23/2019 3:58 PM [facility] Glucose 90 70 - 99 mg/dL 06/23/2019 3:58 PM [facility] Calcium 9.3 8.7 - 10.7 mg/dL 06/23/2019 3:58 PM [facility] Anion Gap 8 5 - 15 06/23/2019 3:58 PM [facility] eGFR Non- >90 >=90 mL/min/BSA 06/23/2019 3:58 PM [facility] eGFR >90 >=90 mL/min/BSA 06/23/2019 3:58 PM [facility] Comment: Units = [...] MD LAB BLOOD ORDERABLES Final R esult [facility] [address] [place] [address], [place] from Last 3 Months or Most Recently Relevant to Health Maintenance Insurance [facility]/[place] [address] [place] [address] [place] [id number] Care Teams Fishing Vessel Deckhand Relationship Specialty Start Date End Date Terra Cooper [address] [place] [address] PCP - General Family Medicine 06/07/19
--- OUTSIDE RECORDS SUMMARY | 2024-11-15 08:45 | XMS_ITS | Encounter Summary ---
Author Organization [facility] [employer] Address [address] [place] [address] 7t [place] [address] Care Team Providers Care Physiological Chemist Name Role Phone Tu Vazquez MD Primary Care Prov ider Encounter Details Date Type Department Care Team (Late Contact Info) Description 04/01/2023 Abstract [facility] ADULT DENTAL [address] [place] [address] Saqib Maria Social History Tobacco Use Types [...] Department Care Team (Late Contact Info) Description 12/05/2024 3:00 PM EDT Office Visit [facility] ADULT DENTAL [address] [place] [address] Saqib Maria documented as of this encounter Visit Diagnoses Not on filedocumented in this encounter Additional Health Concerns Assessment Noted Time PHQ-9 Depression Total Score: 0 07/28/20 22 1:55 PM EST documented as of this encounter Care Teams Physiological Chemist Relationship Specialty Start Date End Date JohnsonTu Corado MD [address] [place] [id number] PCP - General Internal Medicine 12/26/19 documented as of this encounter
--- OUTSIDE RECORDS SUMMARY | 2024-11-15 08:45 | XMS_ITS | Encounter Summary ---
Author Organization [facility] [employer] Address [address] [facility] 7t [place] [address] Care Team Providers Care Air Lift Operator Name Role Phone Tu Vazquez MD Primary Care Prov ider Encounter Details Date Type Department Care Team (Latest Contact Info) Description 01/29/2021 Abstract [facility] CONVERSIONS Dental, Provider, DDS Social [...] 12/05/2024 3:00 PM EDT Office Visit [facility] ADULT DENTAL [address] [place] [address] Saqib Maria documented as of this encounter Visit Diagnoses Not on filedocumented in this encounter Care Teams Air Lift Operator Relationship Specialty Start Date End Date Tu Vazquez MD [address] [place] [address] PCP - General Internal Medicine 12/26/19 documented as of this encounter
--- OUTSIDE RECORDS SUMMARY | 2024-11-15 08:45 | XMS_ITS | Encounter Summary ---
Author Organization [employer] Address [address] [facility] 7t [place] [address] Care Team Providers Care Payroll And Benefits Assistant Name Role Phone Tu Vazquez MD Primary Care Prov ider Encounter Details Date Type Department Care Team (Late st Contact Info) Description 09/27/2024 Orders Only [facility] MEDICINE [address] [place] [address] Heath Maria MD [address] [place] [address] Psoriasis Social History Tobacco Use Types Packs/Day Years Used Date Smoking Tobacco: Never Passive Smoke Exposure: Never Smokeless Tobacco: Never Alcohol Use Standard Drinks/Week Comments Never 0 (1 standard drink = 0.6 oz pur e alcohol) Depression Answer Date Recorded Patient Health Questionnaire-9 Score 0 07/28/2022 Housing Stability Answer Date Recorded What is your housing situation today? I have [employer]o 09/02/[address] you li [...] 12/05/2024 3:00 PM EDT Office Visit [facility] ADULT DENTAL [address] [place] [address] Saqib Maria documented as of this encounter Visit Diagnoses Diagnosis Psoriasis Other psoriasis documented in this encounter Additional Health Concerns Assessment Noted Time PHQ-9 Depression Total Score: 0 07/28/20 22 1:55 PM EST documented as of this encounter Care Teams Payroll And Benefits Assistant Relationship Specialty Start Date End Date Tu Vazquez MD [address] [place] [address] PCP - General Internal Medicine 12/26/19 documented as of this encounter
--- OUTSIDE RECORDS SUMMARY | 2024-11-15 08:45 | XMS_ITS | Encounter Summary ---
Author Organization [employer] Address [address] [facility] 7t [place] [address] Care Team Providers Care Machine Designer Name Role Phone Tu Vazquez MD Primary Care Prov ider Encounter Details Date Type Department Care Team (Late Contact Info) Description 02/19/2023 Orders Only [facility] MEDICINE [address] [place] [address] Kala Bustillo LPN Social History Tobacco Use [...] Description 12/05/2024 3:00 PM EDT Office Visit [facility] ADULT DENTAL [address] [place] [address] Beauzile, Saqib documented as of this encounter Visit Diagnoses Not on filedocumented in this encounter Additional Health Concerns Assessment Noted Time PHQ-9 Depression Total Score: 0 07/28/20 22 1:55 PM EST documented as of this encounter Care Teams Machine Designer Relationship Specialty Start Date End Date Tu Vazquez MD [address] [place] [address] PCP - General Internal Medicine 12/26/19 documented as of this encounter
--- OUTSIDE RECORDS SUMMARY | 2024-11-15 08:45 | XMS_ITS | Encounter Summary ---
Author Organization [employer] Address [address] [facility] 7t [place] [address] Care Team Providers Care Roll Mechanic Name Role Phone Tu Vazquez MD Primary Care Prov ider Encounter Details Date Type Department Care Team (Late st Contact Info) Description 09/19/[address] [facility] CHC MED & PEDS [address] [place] [address] Heath Maria MD [address] [place] [address] Psoriasis Social History Tobacco Use Types Packs/Day [...] Description 12/05/2024 3:00 PM EDT Office Visit [facility] ADULT DENTAL [address] [place] [address] Saqib Maria documented as of this encounter Visit Diagnoses Diagnosis Psoriasis Other psoriasis documented in this encounter Additional Health Concerns Assessment Noted Time PHQ-9 Depression Total Score: 0 07/28/20 22 1:55 PM EST documented as of this encounter Care Teams Roll Mechanic Relationship Specialty Start Date End Date Tu Vazquez MD [address] [place] [address] PCP - General Internal Medicine 12/26/19 documented as of this encounter
--- OUTSIDE RECORDS SUMMARY | 2024-11-15 08:45 | XMS_ITS | Encounter Summary ---
Author Organization [facility] [employer] Address [address] [facility] 7t [place] [address] Care Team Providers Care Engineering Drafter Name Role Phone Tu Vazquez MD Primary Care Prov ider Encounter Details Date Type Department Care Team (Latest Contact Info) Description 10/13/2018 Abstract [facility] CONVERSIONS Dental, Provider, DDS Social History [...] Description 12/05/2024 3:00 PM EDT Office Visit [facility] ADULT DENTAL [address] [place] [address] Saqib Maria documented as of this encounter Visit Diagnoses Not on filedocumented in this encounter Care Teams Engineering Drafter Relationship Specialty Start Date End Date Tu Vazquez MD [address] [place] [address] PCP - General Internal Medicine 12/26/19 documented as of this encounter
--- OUTSIDE RECORDS SUMMARY | 2024-11-15 08:45 | XMS_ITS | Encounter Summary ---
Author Organization [facility] [employer] Address [address] [facility] 7t [place] [address] Care Team Providers Care Tower Cleaner Name Role Phone Tu Vazquez MD Primary Care Prov ider Encounter Details Date Type Department Care Team (Latest Contact Info) Description 06/08/2022 Abstract [facility] CONVERSIONS Dental, Provider, DDS Social History Tobacco [...] Description 12/05/2024 3:00 PM EDT Office Visit [facility] ADULT DENTAL [address] [place] [address] Saqib Maria documented as of this encounter Visit Diagnoses Not on filedocumented in this encounter Care Teams Tower Cleaner Relationship Specialty Start Date End Date Tu Vazquez MD [address] [place] [address] PCP - General Internal Medicine 12/26/19 documented as of this encounter
--- OUTSIDE RECORDS SUMMARY | 2024-11-15 08:45 | XMS_ITS | Encounter Summary ---
Author Organization [employer] Address [address] [place] [address] 7 [place] [address] Care Team Providers Care Non Destructive Testing Inspector Name Role Phone Tu Vazquez MD Primary Care Prov ider Reason for Referral * Medications - Closed Specialty Diagnoses / Procedures Referred By Contac t Referred To Contact Heath Maria MD [address] [place] [address] Phone: tel: fax: Referral ID Status Reason Start Date Expiration Date Visits Re quested Visits Authorized [id number] Closed 1 1 Encounter Details Date Type Department Care Team (Late st Contact Info) Description 02/19/2023 Orders Only [facility] CHC MED & PEDS [address] [place] [address] Heath Maria MD [address] [place] [address] Social History Tobacco Use Types Packs/Day Years [...] Description 12/05/2024 3:00 PM EDT Office Visit [facility] ADULT DENTAL [address] [place] [address] Saqib Maria documented as of this encounter Visit Diagnoses Not on filedocumented in this encounter Additional Health Concerns Assessment Noted Time PHQ-9 Depression Total Score: 0 07/28/20 22 1:55 PM EST documented as of this encounter Care Teams Non Destructive Testing Inspector Relationship Specialty Start Date End Date Tu Vazquez MD [address] [place] [address] PCP - General Internal Medicine 12/26/19 documented as of this encounter
--- OUTSIDE RECORDS SUMMARY | 2024-11-15 08:45 | XMS_ITS | Encounter Summary ---
Author Organization [employer] Address [address] [facility] 7t [place] [address] Care Team Providers Care Ground Mixer Name Role Phone Tu Vazquez MD Primary Care Prov ider Encounter Details Date Type Department Care Team (Late st Contact Info) Description 07/04/[address] [facility] CHC MED & PEDS [address] [place] [address] Heath Maria MD [address] [place] [address] Social History Tobacco Use Types Packs/Day Years [...] Description 12/05/2024 3:00 PM EDT Office Visit [facility] ADULT DENTAL [address] [place] [address] Saqib Maria documented as of this encounter Visit Diagnoses Not on filedocumented in this encounter Additional Health Concerns Assessment Noted Time PHQ-9 Depression Total Score: 0 07/28/20 22 1:55 PM EST documented as of this encounter Care Teams Ground Mixer Relationship Specialty Start Date End Date Tu Vazquez MD [address] [place] [address] PCP - General Internal Medicine 12/26/19 documented as of this encounter
--- OUTSIDE RECORDS SUMMARY | 2024-11-15 08:45 | XMS_ITS | Encounter Summary ---
Author Organization [employer] Address [address] [facility] 7t [place] [address] Care Team Providers Care Cloth Laminating Supervisor Name Role Phone Tu Vazquez MD Primary Care Prov ider Encounter Details Date Type Department Care Team (Late st Contact Info) Description 08/24/2024 Orders Only [facility] CHC MED & PEDS [address] [place] [address] Heath Maria MD [address] [place] [address] Psoriasis (Primary Dx) Social History Tobacco Use [...] Description 12/05/2024 3:00 PM EDT Office Visit [facility] ADULT DENTAL [address] [place] [address] Saqib Maria documented as of this encounter Visit Diagnoses Diagnosis Psoriasis- Primary Other psoriasis documented in this encounter Additional Health Concerns Assessment Noted Time PHQ-9 Depression Total Score: 0 07/28/20 22 1:55 PM EST documented as of this encounter Care Teams Cloth Laminating Supervisor Relationship Specialty Start Date End Date Tu Vazquez MD [address] [place] [address] PCP - General Internal Medicine 12/26/19 documented as of this encounter
--- OUTSIDE RECORDS SUMMARY | 2024-11-15 08:45 | XMS_ITS | Encounter Summary ---
Author Organization [facility] [employer] Address [address] [facility] 7t [place] [address] Care Team Providers Care Aerial Crop Duster Name Role Phone Tu Vazquez MD Primary Care Prov ider Encounter Details Date Type Department Care Team (Latest Contact Info) Description 04/17/2019 Abstract [facility] CONVERSIONS Dental, Provider, DDS Social History Tobacco [...] EDT Office Visit [facility] ADULT DENTAL [address] [place] [address] Saqib Maria documented as of this encounter Visit Diagnoses Not on filedocumented in this encounter Care Teams Aerial Crop Duster Relationship Specialty Start Date End Date Tu Vazquez MD [address] [place] [address] PCP - General Internal Medicine 12/26/19 documented as of this encounter
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
[2024-11-15 14:33] LABS: MANUAL DIFF FLAG NO
[2024-11-15 14:49] LABS: Basophils Absolute Auto 0.1 X10*3/uL (0.0-0.2); Basophils Percent Auto 0.7 % (0-2); Eosinophils Absolute Auto 0.4 X10*3/uL (0.0-0.4); Eosinophils Percent Auto 5.4 % (0-4); Hematocrit 42.3 % (37.0-47.0); Hemoglobin 13.8 g/dl (12.0-16.0); Imm Gran Abs Auto 0.02 X10*3/uL (0.00-0.03); Imm Gran Pct Auto 0.3 % (0.0-0.4); Lymphocytes Absolute Auto 1.6 X10*3/uL (1.2-4.9); Lymphocytes Percent Auto 24.2 % (20-40); Mean Corpuscular HGB Conc 32.6 g/dl (31.0-35.0); Mean Corpuscular Hemoglobin 28.7 pg (27.0-33.0); Mean Corpuscular Volume 87.9 fL (80.0-98.0); Mean Platelet Volume 10.8 fL (9.4-12.3); Monocytes Absolute Auto 0.6 X10*3/uL (0.1-1.2); Monocytes Percent Auto 9.4 % (2-11); Neutrophils Absolute Auto 4.1 x10*3/uL (2.0-8.3); Platelet Count 225 X10*3/uL (160-400); Red Blood Count 4.81 X10*6/uL (4.20-5.50); Red Cell Distribution Width 13.2 % (11.0-16.0); White Blood Count 6.8 X10*3/uL (4.8-10.8)
[2024-11-15 15:16] LABS: Estimated Average Glucose 123 mg/dL; Hemoglobin A1C 153.4553 umol/L; Hemoglobin A1c % 5.9 % (<6.0)
[2024-11-15 16:34] LABS: Alanine Aminotransferase 18 U/L (0-31); Albumin Level 3.8 g/dL (3.5-5.0); Alkaline Phosphatase 61 U/L (39-117); Anion Gap 9 (12-20); Aspartate Amino Transferase 17 U/L (5-31); Bilirubin Total 0.3 mg/dL (0.0-1.0); Blood Urea Nitrogen 20 mg/dL (9-16); Calcium 8.7 mg/dL (8.4-10.2); Carbon Dioxide 29 mmol/L (22-29); Chloride 106 mmol/L (96-108); Cholesterol 213 mg/dL (<200); Estimated Glomerular Filt Rate > 60; Glucose Random 120 mg/dL (60-115); HDL Cholesterol 54 mg/dL (>40); LDL Cholesterol Calculated 137 mg/dL (<100); Potassium 4.3 mmol/L (3.3-5.1); Sodium 140 mmol/L (135-145); Total Protein 6.5 g/dL (6.5-8.0); Triglycerides 114 mg/dL (<150)
[2024-11-15 16:55] LABS: TSH reflex Free T4 3.91 uIU/mL (0.32-4.0)
[2024-11-16 09:15] LABS: HIV AB/AG Nonreactive (Nonreactive); HIV Num 1 0.06 S/CO (0.00-0.99); ~HepC Num1 0.12 S/CO (0.00-0.79); ~Hepatitis C Antibody Nonreactive (Nonreactive)
== END 2024-11-15 08:30 | disposition home or self-care (01) ==
LOC: HO.CHCLDS 08:29
PROVIDERS: Visit Provider Internal Medicine
DX: I10 Essential (primary) hypertension (principal)
CPT/HCPCS: 36415; 80053; 80061; 83036; 84443; 85025; 86803; 87389

== ENCOUNTER 2024-12-09 16:55 | Emergency (ER) | payer OTHER, SELFPAY ==
[2024-12-09 17:02] VITALS: BP 141/70; PULSE 77; RESP 12; TEMP 36.4; O2SAT 95; BMI 39.4
--- NOTE | 2024-12-09 17:02 | ED_ITS ---
HPI - General Adult General Chief complaint: General Medical Stated complaint: high blood pressure/needs med refill Time Seen by Provider: 12/09/24 17:05 Source: patient Mode of arrival: ambulatory Limitations: no limitations History of Present Illness ED Provider: Marilyn Solorzano PA-C HPI narrative: Patient is a 49 year old assigned female at with a history of HTN on 50 mg of Atenolol QD presenting to the emergency department today requesting a medication refill for 2 days. Patient states that she ran out of her Atenolol and her sister was supposed to pick it up for her on 12/08/2024 but she forgot to do so and now her pharmacy is closed until 12/11/2024. Patient states that she is not having any symptoms right now - she would just like 2 tablets of her 50 mg Atenolol to hold her over until her pharmacy opens on 12/11/2024. Patient denies any dizziness, lightheadedness, abdominal pain, nausea, vomiting, fever, chills, blurry vision, double vision, loss of vision, chest pain, difficulty breathing, shortness of breath, back pain, night sweats, pain with urination, increased urinary frequency, increased urinary urgency, blood in her urine or stool, syncope or a near syncopal episode, recent trauma or falls, bowel incontinence, bladder incontinence, or any other complaints at this time. Relieving factors: none Exacerbating factors: none Associated symptoms: denies other symptoms Treatments prior to arrival: none Related Data Home Medications ?Medication ?Instructions ?Recorded ?Confirmed atenolol 50 mg tablet 50 mg PO DAILY 09/08/22 03/17/23 hydrochlorothiazide 25 mg tablet 25 mg PO DAILY 09/08/22 03/17/23 levothyroxine 75 mcg tablet 75 mcg PO DAILY 09/08/22 03/17/23 ustekinumab 45 mg/0.5 mL 45 mg subcut Q12W 09/08/22 03/17/23 subcutaneous syringe (Klauslara) losartan 100 mg tablet 100 mg PO DAILY 09/14/22 03/17/23 Previous Rx's ?Medication ?Instructions ?Recorded albuterol sulfate 90 mcg/actuation 2 puff inhalation Q4-6H PRN 03/12/21 aerosol inhaler shortness of breath or wheezing #6.7 grams fluticasone propionate 50 2 spray intranasal DAILY #16 grams 03/12/21 mcg/actuation nasal spray,suspension (Flonase Allergy Relief) bisacodyl 5 mg tablet,delayed 10 mg (2 x 5 mg) PO ONCE 1 day #2 09/08/22 release (Dulcolax (bisacodyl)) tabs polyethylene glycol 3350 17 17 g PO DAILY #510 grams 09/08/22 gram/dose oral powder (Miralax) polyethylene glycol 3350 17 238 g PO ONCE #238 grams 09/08/22 gram/dose oral powder (Miralax) albuterol sulfate 1.25 mg/3 mL 1.25 mg (3 mL) inhalation Q4-6H 11/25/22 solution for nebulization PRN shortness of breath or wheezing #90 mL lidocaine 5 % topical patch 1 patch topical DAILY #15 ea 07/17/23 naproxen 500 mg tablet 500 mg PO BID PRN pain #20 tabs 07/17/23 albuterol sulfate 90 mcg/actuation 2 puff inhalation Q4-6H PRN 08/18/23 aerosol inhaler shortness of breath or wheezing #8.5 grams prednisone 50 mg tablet 50 mg PO DAILY #4 tabs 08/18/23 diphenhydramine HCl 25 mg capsule 50 mg (2 x 25 mg) PO ONCE PRN 03/16/24 (Benadryl) allergic reaction #10 caps famotidine 40 mg tablet (Pepcid) 40 mg PO ONCE PRN allergic 03/16/24 reaction #5 tabs prednisone 50 mg tablet 50 mg PO ONCE PRN allergic 03/16/24 reaction #5 tabs atenolol 50 mg tablet 50 mg PO DAILY 30 days #30 tabs 05/14/24 amoxicillin 875 mg-potassium 1 tab PO BID #14 tabs 07/03/24 clavulanate 125 mg tablet hydrocortisone-acetic acid 1 %-2 % 5 drp otic (ear) right QID #10 mL 07/03/24 ear drops atenolol 50 mg tablet 50 mg PO DAILY #2 tabs 12/09/24 Allergies Allergy/AdvReac Type Severity Reaction Status Date / Time dipyrone [DIPYRONE] Allergy Unknown Difficulty Verified 12/09/24 17:04 Breathing pork derived (porcine) Allergy Unknown Difficulty Verified 12/09/24 17:04 Breathing Review of Systems Constitutional: Constitutional: Reports no additional constitutional complaints, Denies chills, Denies fever(s) and Denies night sweats Eyes: Eyes: Reports no additional eye complaints, Denies blurry vision, Denies change in vision, Denies diplopia, Denies eye discharge, Denies loss of vision and Denies eye pain ENT: Denies dizziness Cardiovascular: Cardiovascular: Reports no additional cardiovascular complaints, Denies chest pain, Denies lightheadedness, Denies Loss of Consciousness and Denies dyspnea Respiratory: Respiratory: Reports no additional respiratory complaints and Denies dyspnea Gastrointestinal: Gastrointestinal: Reports no additional gastrointestinal complaints, Denies abdominal pain, Denies melena, Denies hematochezia, Denies change in bowel habits and Denies change in stool character Genitourinary: Genitourinary: Denies hematuria, Denies urinary frequency, Denies dysuria, Denies urinary incontinence, Denies urinary hesitancy and Denies urinary urgency Musculoskeletal: Musculoskeletal: Reports no additional musculoskeletal complaints, Denies numbness and Denies tingling Neurologic: Denies dizziness, Denies loss of vision, Denies numbness and Denies tingling Psychiatric: Psychiatric: Reports no additional psychiatric complaints Endocrine: Endocrine: Reports no additional endocrine complaints Hematologic/Lymphatic: Hematologic/Lymphatic: Reports no additional hematologic/lymphatic complaints Allergic/Immunologic: Allergic/Immunologic: Reports no additional allergic/immunologic complaints [facility] Past Medical History Attestation statement: The following information was validated with the patient. Source: old records reviewed and nursing notes reviewed Medical History Sleep apnea Hypothyroidism HTN (hypertension) Asthma Surgical History Surgical history unknown Family History Family History Mother Heart attack Obesity Hypertension Depression Father Heart attack Diabetes Hypertension Brother Heart attack Social History Social History Alcohol intake: never Patient Tobacco Use Status: Never used Tobacco Advance Directives: No Advance Directives Information Provided: No Do you have a plan to hurt others: No Plan Physical Exam ED Vital Signs: Vital Signs - 24 hr 12/09/24 17:02 Temperature 97.5 F Pulse Rate 77 Respiratory Rate 12 Blood Pressure 141/70 H Pulse Oximetry 95 Oxygen Delivery Method Room Air BMI result Body Mass Index 39.4 Const General: cooperative, no acute distress, alert and awake Nutritional Appearance: well nourished Orientation/consciousness: patient oriented x3 HENMT Head: Yes normal to inspection and Yes atraumatic Ears: hearing grossly normal bilaterally and external ears normal General nose exam: Normal external nose present, no nasal discharge noted and no epistaxis Face and sinus: Yes normal facial exam, No abrasion and No laceration Mouth: Normal oral and palatal mucosa present, no drooling and no muffled voice Eyes General: appearance normal, both eyes and all related structures Periorbital: periorbital findings normal Eyelids: Yes eyelids normal Conjunctivae: conjunctivae normal Pupils: Equal, round and reactive pupils present EOM: EOMs intact bilaterally Neck Neck: Yes normal visual inspection, Yes full ROM and Yes no lymphadenopathy Resp Effort & Inspection: normal respiratory effort and able to speak in complete sentences Neuro General: patient oriented x3, moves all extremities and CN's II-XI intact bilaterally Cranial nerves: Yes Equal, round and reactive pupils present Cognition (Neuro): normal cognition Extrem General: Yes normal to inspection, Yes full ROM and Yes capillary refill normal Psych Appearance: grossly normal Mental Status: mental status grossly normal Affect: normal affect Attitude: cooperative Thought process: Normal thought process present Thought content: Normal thought content present Insight: Good insight present (Psych) Medical Decision Making Medical Decision Making MDM Narrative: Patient is a 49 year old assigned female at with a history of HTN on 50 mg of Atenolol QD presenting to the emergency department today requesting a medication refill for 2 days. Patient's physical exam was unremarkable. I explained my physical exam findings to the patient. I answered all questions asked by the patient. I stressed the importance of the patient taking her medication as directed (either prescribed or as the over the counter packaging recommends). I stressed the importance of the patient following up with her primary care provider. I stressed the importance of the patient returning to the emergency department immediately if she were to develop any dizziness, shortness of breath, difficulty breathing, chest pain, blurry vision, loss of vision, nausea, vomiting, abdominal pain, fever, chills, back pain, or any other complaints. Patient verbalized agreement and understanding with this treatment plan and discharge. Differential Diagnosis Differential Diagnoses: The differential diagnosis associated with the presentation includes Medication refill Admission/Observation Consideration of admission/observation: Escalation of care including admission/observation considered Patient would have been admitted to the hospital had her clinical presentation warranted hospital admission. Chronic Conditions Patient?s care impacted by: Hypertension Discharge Plan Discharge Clinical Impression: Medication refill Patient Disposition: Home, Self-Care Instructions: Medicine Refill (ED) Additional Instructions: Follow up with your primary care provider. Return to the emergency department immediately if you develop any numbness, tingling, dizziness, shortness of breath, difficulty breathing, chest pain, blurry vision, loss of vision, nausea, vomiting, abdominal pain, fever, chills, back pain, or any other complaints. Please see the information below about our Patient Portal. If you are not yet enrolled in the [facility] Patient Portal, you will receive an enrollment email invitation following your visit to any [facility] setting. You may also self-enroll in the Patient Portal by visiting our website: [email or web address] The following information is required to access the Patient Portal: - Your [facility] Medical Record Number - Your personal home email address (must match what is in your electronic medical record, Registration staff can assist with this) - Name - Date of Capabilities of the Patient Portal: - Message some providers - View upcoming appointments - Access your health summary, medical history, and visit history - View current conditions and allergies - View procedure and lab results - View your medications, including guidelines, side effects, and precautions - Complete pre-appointment questionnaires requested by your provider - Ready summary reports of your office visits and procedures To access the Patient Portal Mobile [employer], follow these directions: - Search [employer] in the Joshua Store or [employer] Store - Download the Joshua - Search for [facility] - Enter your login/password Prescriptions: New atenolol 50 mg tablet 50 mg PO DAILY Qty: 2 0RF No Action albuterol sulfate 90 mcg/actuation HFA aerosol inhaler 2 puff inhalation Q4-6H PRN (Reason: shortness of breath or wheezing) Qty: 6.7 0RF fluticasone propionate [Flonase Allergy Relief] 50 mcg/actuation spray,suspension 2 spray intranasal DAILY Qty: 16 0RF Rx Instructions: administer into each nostril diphenhydramine HCl [Benadryl] 25 mg capsule 50 mg PO ONCE PRN (Reason: allergic reaction) Qty: 10 0RF famotidine [Pepcid] 40 mg tablet 40 mg PO ONCE PRN (Reason: allergic reaction) Qty: 5 0RF prednisone 50 mg tablet 50 mg PO ONCE PRN (Reason: allergic reaction) Qty: 5 0RF atenolol 50 mg tablet 50 mg PO DAILY 30 Days Qty: 30 0RF amoxicillin-pot clavulanate 875-125 mg tablet 1 tab PO BID Qty: 14 0RF hydrocortisone-acetic acid 1-2 % drops 5 drp otic (ear) right QID Qty: 10 0RF albuterol sulfate 1.25 mg/3 mL solution for nebulization 1.25 mg inhalation Q4-6H PRN (Reason: shortness of breath or wheezing) Qty: 90 0RF naproxen 500 mg tablet 500 mg PO BID PRN (Reason: pain) Qty: 20 0RF lidocaine 5 % adhesive patch,medicated 1 patch topical DAILY Qty: 15 0RF Rx Instructions: leave on most painful area for up to 12 hrs prednisone 50 mg tablet 50 mg PO DAILY Qty: 4 0RF albuterol sulfate 90 mcg/actuation HFA aerosol inhaler 2 puff inhalation Q4-6H PRN (Reason: shortness of breath or wheezing) Qty: 8.5 0RF hydrochlorothiazide 25 mg tablet 25 mg PO DAILY atenolol 50 mg tablet 50 mg PO DAILY Stelara 45 mg/0.5 mL syringe 45 mg subcut Q12W levothyroxine 75 mcg tablet 75 mcg PO DAILY bisacodyl [Dulcolax (bisacodyl)] 5 mg tablet,delayed release (DR/EC) 10 mg PO ONCE 1 Days Qty: 2 0RF Rx Instructions: take 2 tabs at noon the day before your colonoscopy polyethylene glycol 3350 [Miralax] 17 gram/dose powder 238 g PO ONCE Qty: 238 0RF Rx Instructions: As directed by gastroenterology department at [facility] polyethylene glycol 3350 [Miralax] 17 gram/dose powder 17 g PO DAILY Qty: 510 2RF losartan 100 mg tablet 100 mg PO DAILY Referrals: Tu Vazquez MD [Primary Care Provider] - Discharge Date/Time: 12/09/24 17:12 Print Language: Bulgarian
== END 2024-12-09 17:12 | disposition home or self-care (01) ==
LOC: HO.ED 17:09
PROVIDERS: Emergency Provider Emergency Medicine Emergency Medical Services; PCP Internal Medicine
DX: Z76.0 Encounter for issue of repeat prescription (principal); Z79.899 Other long term (current) drug therapy
CPT/HCPCS: 99281; 99283

== ENCOUNTER 2024-12-11 16:52 | Emergency (ER) | payer OTHER, SELFPAY ==
[2024-12-11 17:02] VITALS: BP 140/73; PULSE 90; RESP 18; TEMP 36.3; O2SAT 97; BMI 38.9
--- OUTSIDE RECORDS SUMMARY | 2024-12-11 17:30 | XMS_ITS | Encounter Summary ---
Author Organization [employer] Address [address] [place] [address] Care Team Providers Care Clinical Documentation Clerk Name Role Phone Tu Vazquez MD Primary Care Prov ider Encounter Details Date Type Department Care Team (Late st Contact Info) Description 09/27/2024 Orders Only [facility] [address] [place] [address] Heath Maria MD [address] [place] [address] Psoriasis Social History Tobacco Use Types Packs/Day [...] t he electric, gas, oil or water [employer] threatened to shut off services in your [...] Care Team (Late st Contact Info) Description 12/28/2024 8:00 AM EDT Office Visit [facility] ADULT DENTAL [address] [place], [place] [id number] Edwin Del Valle, MONA [address] [place] [address] documented as of this encounter Visit Diagnoses Diagnosis Psoriasis Other psoriasis documented in this encounter Additional Health Concerns Assessment Noted Time PHQ-9 Depression Total Score: 0 07/28/20 22 1:55 PM EST documented as of this encounter Care Teams Clinical Documentation Clerk Relationship Specialty Start Date End Date Tu Vazquez MD [address] [place] [address] PCP - General Internal Medicine 12/26/19 documented as of this encounter
--- OUTSIDE RECORDS SUMMARY | 2024-12-11 17:30 | XMS_ITS | Referral Summary ---
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 Procedure Name Priority Date/Time Associated Diagnosis Comments BASIC METABOLIC PANEL Routine 06/23/2019 3:05 PM EST Essential hypertension from Last 3 Months or Most Recently Relevant to Health Maintenance Results * Due to [place] [employer] law, this organization might not be sharing negative HIV tests. * Basic metabolic panel (06/23/2019 3:05 PM EST) NA 137 135 - 145 mmol/L 06/23/2019 3:58 PM EST [facility] K 3.9 3.5 - 5.3 mmol/L 06/23/2019 3:58 PM EST [facility] Cl 100 97 - 110 mmol/L 06/23/2019 3:58 PM EST [facility] CO2 29 24 - 32 mmol/L 06/23/2019 3:58 PM EST [facility] BUN 14 7 - 23 mg/dL 06/23/2019 3:58 PM EST [facility] Creatinine 0.70 0.50 - 1.20 mg/dL 06/23/2019 3:58 PM EST [facility] Glucose 90 70 - 99 mg/dL 06/23/2019 3:58 PM EST [facility] Calcium 9.3 8.7 - 10.7 mg/dL 06/23/2019 3:58 PM EST [facility] Anion Gap 8 5 - 15 06/23/2019 3:58 PM EST [facility] eGFR Non- >90 >=90 mL/min/BSA 06/23/2019 3:58 PM EST [facility] eGFR >90 >=90 mL/min/BSA 06/23/2019 3:58 PM [facility] Comment: Units = mL/min/1.73 [...] MD LAB BLOOD ORDERABLES Final R esult [facility] [address] [place] [address], [place] from Last 3 Months or Most Recently Relevant to Health Maintenance Insurance [facility] Care Teams Leather Stitcher Relationship Specialty Start Date End Date Terra Cooper [address] [place] [id number] PCP - General Family Medicine 06/07/19
--- OUTSIDE RECORDS SUMMARY | 2024-12-11 17:30 | XMS_ITS | Encounter Summary ---
Author Organization [employer] Address [address] [facility] [address] [place] [address] Care Team Providers Care Trench Digger Name Role Phone Tu Vazquez MD Primary Care Prov ider Encounter Details Date Type Department Care Team (Late st Contact Info) Description 09/19/2024 Orders Only [facility] [address] [place] [address] Heath Maria MD [address] [place] [address] Psoriasis Social History Tobacco Use Types Packs/Day Years Used Date Smoking Tobacco: Never Passive Smoke Exposure: Never Smokeless Tobacco: Never Alcohol Use Standard Drinks/Week Comments Never 0 (1 standard drink = 0.6 oz pur e alcohol) Depression Answer Date Recorded Patient Health Questionnaire-9 Score 0 07/28/2022 Housing Stability Answer Date Recorded What is your housing situation today? I have maricelmica vickers 09/02/[address] you [...] Description 12/28/2024 8:00 AM EDT Office Visit [facility] [address] [place] [address] Edwin Del Valle, MONA [address] [place] [address] documented as of this encounter Visit Diagnoses Diagnosis Psoriasis Other psoriasis documented in this encounter Additional Health Concerns Assessment Noted Time PHQ-9 Depression Total Score: 0 07/28/20 22 1:55 PM EST documented as of this encounter Care Teams Trench Digger Relationship Specialty Start Date End Date Tu Vazquez MD [address] [place] [address] PCP - General Internal Medicine 12/26/19 documented as of this encounter
--- OUTSIDE RECORDS SUMMARY | 2024-12-11 17:30 | XMS_ITS | Clinical Summary ---
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 Procedure Name Priority Date/Time Associated Diagnosis Comments BASIC METABOLIC PANEL Routine 06/23/2019 3:05 PM EST Essential hypertension from Last 3 Months or Most Recently Relevant to Health Maintenance Results * Due to [place] [employer] law, this organization might not be sharing negative HIV tests. * Basic metabolic panel (06/23/2019 3:05 PM EST) NA 137 135 - 145 mmol/L 06/23/2019 3:58 PM EST [facility] K 3.9 3.5 - 5.3 mmol/L 06/23/2019 3:58 PM [facility] Cl 100 97 - 110 mmol/L 06/23/2019 3:58 PM [facility] CO2 29 24 - 32 mmol/L 06/23/2019 3:58 PM [facility] BUN 14 7 - 23 mg/dL 06/23/2019 3:58 PM [facility] Creatinine 0.70 0.50 - 1.20 mg/dL 06/23/2019 3:58 PM [facility] Glucose 90 70 - 99 mg/dL 06/23/2019 3:58 PM [facility] Calcium 9.3 8.7 - 10.7 mg/dL 06/23/2019 3:58 PM [facility] Anion Gap 8 5 - 15 06/23/2019 3:58 PM [facility] eGFR Non- >90 >=90 mL/min/BSA 06/23/2019 3:58 PM [facility] eGFR >90 >=90 mL/min/BSA 06/23/2019 3:58 PM [facility] Comment: Units = [...] MD LAB BLOOD ORDERABLES Final R esult [facility] [address] [place] [address], [place] from Last 3 Months or Most Recently Relevant to Health Maintenance Insurance [employer]/[place] [address] [place] [address] MAR[place]NE [id number] Care Teams Local Company [employer] Truck Driver Relationship Specialty Start Date End Date Terra Cooper [address] [place] [address] PCP - General Family Medicine 06/07/19
--- OUTSIDE RECORDS SUMMARY | 2024-12-11 17:30 | XMS_ITS | Encounter Summary ---
Author Organization [employer] Address [address] [facility] [address] [place] [address] Care Team Providers Care Swim Instructor Name Role Phone Tu Vazquez MD Primary Care Prov ider Encounter Details Date Type Department Care Team (Late st Contact Info) Description 07/04/2024 Orders Only [facility] [address] [place] [address] Heath Maria MD [address] [place] [address] Social History Tobacco Use Types Packs/Day Years [...] Description 12/28/2024 8:00 AM EDT Office Visit [facility] [address] [place] [address] Edwin Del Valle, MONA [address] [place] [address] documented as of this encounter Visit Diagnoses Not on filedocumented in this encounter Additional Health Concerns Assessment Noted Time PHQ-9 Depression Total Score: 0 07/28/20 22 1:55 PM EST documented as of this encounter Care Teams Swim Instructor Relationship Specialty Start Date End Date Tu Vazquez MD [address] [place] [address] PCP - General Internal Medicine 12/26/19 documented as of this encounter
--- OUTSIDE RECORDS SUMMARY | 2024-12-11 17:30 | XMS_ITS | Encounter Summary ---
Author Organization [employer] Address [address] [facility] [address] [place] [address] Care Team Providers Care Modeling Director Name Role Phone Tu Vazquez MD Primary Care Prov ider Reason for Visit * Reason Onset Date Comments Medication Question 09/26/2024 Encounter Details Date Type Department Care Team ([facility] Contact Info) Description 09/26/2024 Telephone [facility] [address] [place] [address] Tu Vazquez MD [address] [place] [address] Medication Question Social History Tobacco Use Types [...] 09/27/2024 11:07 AM EST TC placed to [facility] specialty pharmacy to inquire on what information is needed regarding the pt Stelara injection prescription. Per [facility], the provider needs to write specifically how often the injectionis given (ie every 6-8 weeks). [facility] was informed that this is a continuation of the medication and the dose will remain the same. * Telephone Encounter - Sonia Rashid - 09/26/2024 11:21 AM EST TC from [place] with [facility] requesting description clarification on medication ustekinumab (Stelara) injection . Would like to know how often and if its a starter dose. Best contact # [phone] extension [phone]. . documented in this encounter Plan of Treatment Upcoming Encounters Date Type Department Care Team (Late st Contact Info) Description 12/28/2024 8:00 AM EDT Office Visit [facility] ADULT DENTAL [address] [place] [address] Edwin Del Valle, DMD [address] [place] [address] documented as of this encounter Visit Diagnoses Not on filedocumented in this encounter Additional Health Concerns Assessment Noted Time PHQ-9 Depression Total Score: 0 07/28/20 22 1:55 PM EST documented as of this encounter Care Teams Modeling Director Relationship Specialty Start Date End Date Tu Vazquez MD [address] [place] [id number] PCP - General Internal Medicine 12/26/19 documented as of this encounter
--- OUTSIDE RECORDS SUMMARY | 2024-12-11 17:31 | XMS_ITS | Encounter Summary ---
Author Organization [employer] Address [address] [facility] 7t [place] [address] Care Team Providers Care Hair Boiler Name Role Phone Tu Vazquez MD Primary Care Prov ider Encounter Details Date Type Department Care Team (Late Contact Info) Description 02/19/2023 Orders Only [facility] [address] [place], [place] [phone] Kala Bustillo LPN Social History Tobacco Use [...] Department Care Team (Late Contact Info) Description 12/28/2024 8:00 AM EDT Office Visit [facility] ADULT DENTAL [address] [place], [place] [phone] Edwin Del Valle, MONA [address] [place] [address] documented as of this encounter Visit Diagnoses Not on filedocumented in this encounter Additional Health Concerns Assessment Noted Time PHQ-9 Depression Total Score: 0 07/28/20 22 1:55 PM EST documented as of this encounter Care Teams Hair Boiler Relationship Specialty Start Date End Date Tu Vazquez MD [address] [place] [address] MARIANNE Mac [address] PCP - General Internal Medicine 12/26/19 documented as of this encounter
--- OUTSIDE RECORDS SUMMARY | 2024-12-11 17:31 | XMS_ITS | Encounter Summary ---
Author Organization [employer] Address [address] [facility] 7t [place] [address] Care Team Providers Care Motion Picture Set Up Worker Name Role Phone Tu Vazquez MD Primary Care Prov ider Reason for Visit * Reason Onset Date Comments Med Refill 12/11/2024 Encounter Details Date Type Department Care Team ([facility] Contact Info) Description 12/11/2024 Refill [facility] PEDS [address] [place] [address] Tu Vazquez MD [address] [place] [address] Primary hypertension Social History Tobacco Use Types Packs/Day Years [...] encounter Miscellaneous Notes * Telephone Encounter - Kala Bustillo LPN - 12/11/2024 2:25 PM EDT Last seen 10.30.24 * Telephone Encounter - Sherry Banerjee - 12/11/2024 2:22 PM EDT Pt requesting the following med refill: Atenolol 50 mg tab documented in this encounter Plan of Treatment Upcoming Encounters Date Type Department Care Team (Late st Contact Info) Description 12/28/2024 8:00 AM EDT Office Visit [facility] ADULT DENTAL [address] [place] [address] Edwin Del Valle, MONA [address] [place] [address] documented as of this encounter Visit Diagnoses Diagnosis Primary hypertension Unspecified essential hypertension documented in this encounter Additional Health Concerns Assessment Noted Time PHQ-9 Depression Total Score: 3 10/31/19 25 8:40 AM EDT documented as of this encounter Care Teams Motion Picture Set Up Worker Relationship Specialty Start Date End Date Tu Vazquez MD [address] [place] [address] PCP - General Internal Medicine 12/26/19 documented as of this encounter
--- OUTSIDE RECORDS SUMMARY | 2024-12-11 17:31 | XMS_ITS | Encounter Summary ---
Author Organization [email or web address] Address [address] [place] [address] 7t [place] [address] Care Team Providers Care Quality Worker Name Role Phone Tu Vazquez MD Primary Care Prov ider Encounter Details Date Type Department Care Team (Late Contact Info) Description 04/01/2023 Abstract [facility] ADULT DENTAL [address] [place] [address] Saqib Maria Social History Tobacco Use Types [...] Description 12/28/2024 8:00 AM EDT Office Visit [facility] ADULT DENTAL [address] [place], [place] [phone] Edwin Del Valle DMD [address] [place] [address] documented as of this encounter Visit Diagnoses Not on filedocumented in this encounter Additional Health Concerns Assessment Noted Time PHQ-9 Depression Total Score: 0 07/28/20 22 1:55 PM EST documented as of this encounter Care Teams Quality Worker Relationship Specialty Start Date End Date Tu Vazquze MD [address] [place] [address] PCP - General Internal Medicine 12/26/19 documented as of this encounter
--- OUTSIDE RECORDS SUMMARY | 2024-12-11 17:31 | XMS_ITS | Encounter Summary ---
Author Organization [employer] Address [address] [facility] 7t [place] [address] Care Team Providers Care Telegraph Plant Maintainer Name Role Phone Tu Vazquez MD Primary Care Prov ider Encounter Details Date Type Department Care Team (Latest Contact Info) Description 06/08/[address] [facility] [...] 8:00 AM EDT Office Visit [facility] ADULT DENTAL [address] [place] [address] Edwin Del Valle, DMD [address] [place] [address] documented as of this encounter Visit Diagnoses Not on filedocumented in this encounter Care Teams Telegraph Plant Maintainer Relationship Specialty Start Date End Date Tu Vazquez MD [address] [place] [address] PCP - General Internal Medicine 12/26/19 documented as of this encounter
--- OUTSIDE RECORDS SUMMARY | 2024-12-11 17:31 | XMS_ITS | Encounter Summary ---
Author Organization [employer] Address [address] [place] [address] 7t [place] [address] Care Team Providers Care Service Desk Agent Name Role Phone Tu Vazquez MD Primary Care Prov ider Encounter Details Date Type Department Care Team (Latest Contact Info) Description 10/13/2018 Abstract [facility] CONVERSIONS Dental, Provider, DDS Social [...] Description 12/28/2024 8:00 AM EDT Office Visit [facility] ADULT DENTAL [address] [place] [address] Edwin Del Valle, DMD [address] [place] [address] documented as of this encounter Visit Diagnoses Not on filedocumented in this encounter Care Teams Service Desk Agent Relationship Specialty Start Date End Date Tu Vazquez MD [address] [place] [address] PCP - General Internal Medicine 12/26/19 documented as of this encounter
--- OUTSIDE RECORDS SUMMARY | 2024-12-11 17:31 | XMS_ITS | Encounter Summary ---
Author Organization [employer] Address [address] [facility] 7t [place] [address] Care Team Providers Care Foam Rubber Curer Name Role Phone Tu Vazquez MD Primary Care Prov ider Encounter Details Date Type Department Care Team (Latest Contact Info) Description 01/29/2021 Abstract [facility] CONVERSIONS Dental, Provider, DDS Social History [...] Description 12/28/2024 8:00 AM EDT Office Visit [facility] CH[facility] ADULT DENTAL [address] [place] [address] Edwin Del Valle, DMD [address] [place] [address] documented as of this encounter Visit Diagnoses Not on filedocumented in this encounter Care Teams Foam Rubber Curer Relationship Specialty Start Date End Date Tu aVzquez MD [address] [place] [address] PCP - General Internal Medicine 12/26/19 documented as of this encounter
--- OUTSIDE RECORDS SUMMARY | 2024-12-11 17:31 | XMS_ITS | Encounter Summary ---
Author Organization [employer] Address [address] [place] [address] 7t [place] [address] Care Team Providers Care Picking Belt Operator Name Role Phone Tu Vazquez MD Primary Care Prov ider Encounter Details Date Type Department Care Team (Latest Contact Info) Description 04/17/2019 Abstract [facility] CONVERSIONS Dental, Provider, DDS Social [...] Description 12/28/2024 8:00 AM EDT Office Visit [facility] ADULT DENTAL [address] [place] [address] Edwin Del Valle, DMD [address] [place] [address] documented as of this encounter Visit Diagnoses Not on filedocumented in this encounter Care Teams Picking Belt Operator Relationship Specialty Start Date End Date Tu Vazquez MD [address] [place] [address] PCP - General Internal Medicine 12/26/19 documented as of this encounter
--- OUTSIDE RECORDS SUMMARY | 2024-12-11 17:31 | XMS_ITS | Encounter Summary ---
Author Organization [employer] Address [address] [place] [address] 7 [place] [address] Care Team Providers Care Poacher Wringer Operator Name Role Phone Tu Vazquez MD Primary Care Prov ider Reason for Referral * Medications - Closed Specialty Diagnoses / Procedures Referred By Contac t Referred To Contact Heath Maria MD [address] [place] [address] Phone: tel: fax: Referral ID Status Reason Start Date Expiration Date Visits Re quested Visits Authorized [id number] Closed 1 1 Encounter Details Date Type Department Care Team (Late st Contact Info) Description 02/19/2023 Orders Only [facility] MED & PEDS [address] [place] [address] Heath Maria MD [address] [place] [address] Social History Tobacco Use Types Packs/Day Years [...] Upcoming Encounters Date Type Department Care Team ([facility] st Contact Info) Description 12/28/2024 8:00 AM EDT Office Visit [facility] ADULT DENTAL [address] [place] [address] Edwin Del Valle, DMD [address] [place] [address] documented as of this encounter Visit Diagnoses Not on filedocumented in this encounter Additional Health Concerns Assessment Noted Time PHQ-9 Depression Total Score: 0 07/28/20 22 1:55 PM EST documented as of this encounter Care Teams Poacher Wringer Operator Relationship Specialty Start Date End Date Tu Vazquez MD [address] [place] [address] PCP - General Internal Medicine 12/26/19 documented as of this encounter
--- OUTSIDE RECORDS SUMMARY | 2024-12-11 17:31 | XMS_ITS | Encounter Summary ---
Author Organization [employer] Address [address] [facility] 7t [place] [address] Care Team Providers Care Stocklayer Name Role Phone Tu Vazquez MD Primary Care Prov ider Encounter Details Date Type Department Care Team (Late st Contact Info) Description 08/24/2024 Orders Only [facility] CH[facility] MED & PEDS [address] [place] [address] Heath Maria MD [address] [place] [address] Psoriasis (Primary Dx) Social History Tobacco Use [...] Description 12/28/2024 8:00 AM EDT Office Visit [facility] ADULT DENTAL [address] [place] [address] Edwin Del Valle, MONA [address] [place] [address] documented as of this encounter Visit Diagnoses Diagnosis Psoriasis- Primary Other psoriasis documented in this encounter Additional Health Concerns Assessment Noted Time PHQ-9 Depression Total Score: 0 07/28/20 22 1:55 PM EST documented as of this encounter Care Teams Stocklayer Relationship Specialty Start Date End Date Tu Vazquez MD [address] [place] [address] PCP - General Internal Medicine 12/26/19 documented as of this encounter
--- OUTSIDE RECORDS SUMMARY | 2024-12-11 17:31 | XMS_ITS | Clinical Summary ---
Author Organization [employer] Address [address] [facility] 7t [place] [address] Care Team Providers Care Dry Goods Inspector Name Role Phone Tu aVzquez MD Primary Care Prov ider Allergies Active Allergy Reactions Criticality Noted Date Comments Hydralazine Hives,Unknown 06/05/2019 Pork-Derived Products Shortness of breath High 06/23 Medications Fluocinolone Acetonide Scalp ([place]-Smoothe/F S Scalp) 0.01 % oilIndications:P soriasis Once a day on a damp scalp. Cover w/ a Durag. Wash in the morning. 118 mL 11 07/21/20 22 Active triamcinolone (Kenalog) 0.1 % creamIndications :Psoriasis MIx with 16oz container of Cerave and [...] XR (Effexor XR) 37.5 MG 24 hr capsuleIndicatio ns:Hot flashes Take 1 capsule (37.5 mg) by mouth in the morning. Do not crush or chew. 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 90 tablet 06/01/20 23 Active atenolol (Tenormin) 50 MG tabletIndication s:Primary hypertension TAKE ONE TABLET BY MOUTH EVERY DAY 90 tablet 3 11/05/19 24 Active fluticasone (Flonase) 50 MCG/ACT nasal spray INHALE 1 - 2 SPRAYS IN EACH NOSTRIL ONCE DAILY IN THE MORNING 16 g 2 12/22/19 24 Active levothyroxine (Synthroid, Levoxyl) 75 MCG tablet TAKE ONE TABLET BY MOUTH EVERY DAY 30 tablet 11 09/12/19 25 Active ustekinumab (Stelara) injectionIndicat ions:Psoriasis 45 mg every 12 weeks 0.5 mL 09/27/19 25 Active ustekinumab (Stelara) injectionIndicat ions:Psoriasis 45 mg every 12 weeks 0.5 mL 09/27/19 25 Active losartan (Cozaar) 100 MG tabletIndication s:Primary hypertension TAKE ONE TABLET EVERY MORNING 90 tablet 1 10/07/19 25 Active albuterol 108 (90 Base) MCG/ACT inhaler Inhale 2 puffs every 6 (six) hours if needed for wheezing. 18 g 1 10/31/19 25 Active fluticasone furoate (Arnuity Ellipta) 200 MCG/ACT inhaler Inhale 1 puff Once per day. 30 each 2 10/31/19 25 026 Active hydroCHLOROthiaz brennen (HYDRODiuril) 25 MG tablet TAKE ONE TABLET BY MOUTH EVERY MORNING 90 tablet 3 11/23/19 25 Active hydroCHLOROthiaz brennen (HYDRODiuril) 25 MG tablet TAKE ONE TABLET BY MOUTH EVERY MORNING 90 tablet 3 11/26/19 24 025 Discontinued Active Problems Problem Noted Date Diagnosed Date [...] parents with CAD and brother recently had AL Screening for colon cancer 07/28/2022 Assessment & [...] Encounters Date Type Department Care Team Description 12/11/2024 Refill [facility] MED & PEDS [address] [place] [address] Tu Vazquez MD Primary hypertension 12/05/2024 3:00 PM EDT Office Visit [facility] ADULT DENTAL [address] [place] [address] Saqib Maria Dental caries (Primary Dx); Dental calculus 11/21/2024 Refill [facility] MED & PEDS [address] [place] [address] Tu Vazquez MD 10/30/2024 8:45 AM EDT Telemedicine [facility] CHC MED & PEDS [address] [place] [address] Tu Vazquez MD Primary hypertension (Primary Dx); Acquired hypothyroidism 10/06/2024 Refill [facility] MED & PEDS [address] [place] [address] Tu Vazquez MD Primary hypertension 09/27/2024 Orders Only [facility] MEDICINE [address] [place] [phone] Heath Maria MD Psoriasis 09/26/2024 Telephone [facility] MED & PEDS [address] [place] [address] Tu Vazquez MD Medication Question 09/20/2024 Telephone [facility] MEDICINE [address] [place] [phone] Alpa Wade, [facility] Results; Referral 09/19/2024 11:15 AM EST Office Visit [facility] CHC MED & PEDS [address] [place] [address] Heath Maria MD Psoriasis (Primary Dx); Psoriasis 09/19/2024 Travel 09/19/2024 Orders Only [facility] MED & PEDS [address] [place] [address] Heath Maria MD Psoriasis 09/14/2024 Telephone [facility] MED & PEDS [address] [place] [address] Heath Maria MD Stelera Question 09/13/2024 Refill [facility] MED & PEDS [address] [place] [address] Tu Vazquez MD Psoriasis 09/13/2024 Telephone [facility] MED & PEDS [address] [place] [address] Tu Vazquez MD Med Refill from Last 3 Months Immunizations Name Administration [...] Sign Reading Time Taken Comments Blood Pressure 128/70 12/05/2024 3:03 PM EDT Pulse 70 12/05/2024 3:03 PM EDT Temperature 36.7 ??C (98 ??F) 09/19/2024 10:59 [...] Description 12/28/2024 8:00 AM EDT Office Visit [facility] ADULT DENTAL [address] [place] [address] Edwin Del Valle, DMD [address] [place] [address] Health Maintenance Due Date Last Done Comments CT Colonography 1975 Colonoscopy 1975 FIT 1975 FOBT 1975 Sigmoidoscopy 1975 Family Planning (PISQ) 1989 DTaP/Tdap/Td Vaccines (1 - Tdap) 1993 Hepatitis B Vaccines (1 of 3 - 19+ 3-dose series) 1993 Pneumococcal Vaccine: 50+ Years (1 of 1 - PCV) 02/18/2024 Zoster Vaccines (1 of 2) 02/18/2024 COVID-19 Vaccine (3 - 2023- season) 2024 02/01/2021, 01/03/2021 Influenza Vaccine (#1) 2024 04/25/2019 SDOH Screening 09/02/2024 09/02/2023 Dental X-Ray: Bitewings 05/10/2025 05/09/2024 Dental Oral Exam 06/08/2025 12/05/2024, 03/2024, 04/01/2023 Dental Prophylaxis 06/08/2025 12/05/2024, 1 , 04/01/2023, Additional history exists Cervical Cancer Screening 08/31/2025 Pap Smear 08/31/2025 08/31/2024, 08/04, 04/15/2021 Alcohol/Substance Use Screening 10/30/2025 10/30/2024 Depression Screening 10/30/2025 10/30/2024, 10/31/19 25 Diabetes: Hemoglobin A1C 11/15/2025 025, 05/09/2024, 07/30/2022, Additional history exists Mammogram 12/01/2025 12/02/2023, 08/2022, 11/25/2021, Additional history exists Tobacco Screening 12/05/2025 12/05/2024 Dental X-Ray: Full Mouth 05/10/2027 05/09/2024 Colorectal Cancer Screening 05/18/2027 FIT DNA/Cologuard 05/18/2027 05/18/2024 HPV/Cotest 08/31/2029 08/31/2024, 04/15/2021 Lipid Panel 11/15/2029 11/15/2024, 03/2024, 07/30/2022, Additional history exists RSV Patients and Patients Aged 60 years or older (1 - 1-dose 75+ series) 2049 HIV Screening Completed 11/15/2024 Hepatitis C Screening Completed 11/15/2024 HIB Vaccines Aged Out No longer eligi [...] Procedure Name Priority Date/Time Associated Diagnosis Comments CASE PRESENTATION, DETAILED AND EXTENSIVE TREATMENT PLANNING Routine 12/05/2024 3:00 PM EDT ORAL HYGIENE INSTRUCTIONS Routine 12/05/2024 3:00 PM EDT PERIODIC ORAL EVALUATION - ESTABLISHED PATIENT Routine 12/05/2024 3:00 PM EDT Dental caries PROPHYLAXIS - ADULT Routine 12/05/2024 3 :00 PM EDT HEPATITIS C AB W/REFL TO HCV RNA, QN, PCR Routine 11/15/2024 8:31 AM EDT Primary hypertension HIV 1/2 ANTIGEN/ANTIBODY, FOURTH GENERATION W/RFL Routine 11/15/2024 8:31 AM EDT Primary hypertension HEMOGLOBIN A1C Routine 11/15/2024 8:31 AM EDT Primary hypertension TSH W/REFLEX TO FT4 Routine 11/15/2024 8 :31 AM EDT Primary hypertension LIPID PANEL, STANDARD Routine 11/15/2024 8:31 AM EDT Primary hypertension COMPREHENSIVE METABOLIC PANEL Routine 11/15/2024 8:31 AM EDT Primary hypertension CBC WITH AUTO DIFFERENTIAL Routine 11/15/2024 8:31 AM EDT Primary hypertension US LOWER EXTREMITY, SOFT TISSUE Urgent 09/15/2024 Lump of thigh, left HPV DNA, LOW/HIGH RISK Routine 08/31/2024 12:32 PM EST PAP SMEAR Routine 08/31/2024 12:32 PM EST Cervical cancer screening LAB COLOGUARD?? COLON CANCER SCREEN Routine 05/18/2024 6:50 AM EDT Screening for colon cancer INTRAORAL - COMPLETE SERIES OF RADIOGRAPHIC IMAGES Routine 05/09/2024 3:00 PM EDT Dental caries Loss of retention of dental crown BI MAMMOGRAM SCREENING TOMOSYNTHESIS BILATERAL Routine 12/02/2023 2:40 PM EDT from Last 3 Months or Most Recently Relevant to Health Maintenance Results * TSH W/Reflex to FT4 (11/15/2024 8:31 AM EDT) TSH reflex Free T4 3.91 0.32 - 4.0 uIU/mL [facility] Blood Venous blood specimen / Unknown 11/15/2024 8:31 AM EDT 11/15/2024 2:18 PM EDT us Tu Lemon MD LAB BLOOD ORDERABL ES Final Result [facility] [address] [place] [address] [phone] * (ABNORMAL) CBC auto differential (11/15/2024 8:31 AM EDT) White Blood Count 6.8 4.8 - 10.8 X10*3/uL [facility] Red Blood Count 4.81 4.20 - 5.50 X10*6/uL [facility] Hemoglobin 13.8 12.0 - 16.0 g/dl [facility] Hematocrit 42.3 37.0 - 47.0 % [facility] Mean Corpuscular Volume 87.9 80.0 - 98.0 fL [facility] Mean Corpuscular Hemoglobin 28.7 27.0 - 33.0 pg [facility] Mean Corpuscular HGB Conc 32.6 31.0 - 35.0 g/dl [facility] Red Cell Distribution Width 13.2 11.0 - 16.0 % [facility] Platelet Count 225 160 - 400 X10*3/uL [facility] Mean Platelet Volume 10.8 9.4 - 12.3 fL [facility] Neutrophils Percent Auto 60.0 45 - 73 % [facility] Imm Gran Pct Auto 0.3 0.0 - 0.4 % [facility] Lymphocytes Percent Auto 24.2 20 - 40 % [facility] Monocytes Percent Auto 9.4 2 - 11 % [facility] Eosinophils Percent Auto 5.4(H) 0 - 4 % [facility] Basophils Percent Auto 0.7 0 - 2 % [facility] NRBC Pct Auto 0.0 0.0 - 0.2 /100WBC [facility] Neutrophils Absolute Auto 4.1 2.0 - 8.3 x10*3/uL [facility] Imm Gran Abs Auto 0.02 0.00 - 0.03 X10*3/uL [facility] Lymphocytes Absolute Auto 1.6 1.2 - 4.9 X10*3/uL [facility] Monocytes Absolute Auto 0.6 0.1 - 1.2 X10*3/uL [facility] Eosinophils Absolute Auto 0.4 0.0 - 0.4 X10*3/uL [facility] Basophils Absolute Auto 0.1 0.0 - 0.2 X10*3/uL [facility] NRBC Abs Auto 0.000 0.0 - 0.012 X10*3/uL [facility] Blood Venous blood specimen / Unknown 11/15/2024 8:31 AM EDT 11/15/2024 2:25 PM EDT Tu Lemon MD LAB BLOOD ORDERABL ES Final Result Performing Organization Address [facility] [[email or web address]] Co de Phone Number [facility] [address] [place] [phone] * Hepatitis C Antibody with Reflex to HCV, RNA, Quantitative, Real-Time PCR (11/15/2024 8:31 AM EDT) Hepatitis C Antibody Nonreactive Nonreactive [facility] Comment:Antibodies to HCV no t detected; does not exclude early acuteHCV infection. Blood Venous blood specimen / Unknown 11/15/2024 8:31 AM EDT 11/15/2024 2:18 PM EDT Tu Lemon MD LAB BLOOD ORDERABL ES Final Result Performing Organization Address [facility] [[email or web address]] Co de Phone Number [facility] [address] [place] [address] [phone] * HIV-1/2 Antigen and Antibodies, Fourth Generation, with Reflexes (11/15/2024 8:31 AM EDT) HIV AB/AG Nonreactive Nonreactive [facility] Comment:HIV-1 p24 Ag and/or HIV-1/HIV-2 Ab not detected.A test result that is nonreactive does not exclude thepossibility of exposure to or infection with HIV-1 and/orHIV-2. Nonreactive results in this assay for individualswith prior exposure to HIV-1 and/or HIV-2 may be due toantigen and antibody levels that are below the limit ofdetection of this assay.The [employer] HIV Ag/Ab Combo assay result andsupplemental assay results should be interpreted inconjunction with the patient's clinical presentation,history and other laboratory results. If the results areinconsistent with clinical evidence, additional testing issuggested to confirm the result. Blood Venous blood specimen / Unknown 11/15/2024 8:31 AM EDT 11/15/2024 2:18 PM EDT Tu Lemon MD LAB BLOOD ORDERABL ES Final Result Performing Organization Address [facility] [[email or web address]] Co de Phone Number [facility] [address] [place] [phone] * Hemoglobin A1c (11/15/2024 8:31 AM EDT) Hemoglobin A1c 5.9 <6.0 % [facility] Comment:Hemoglobin A1C Refer ence Range Adults: 4.8 - 6.0 % Non diabetic: < 6.0 % Goal: < 7.0 %Additional Action Suggested: > 8.0 %Note: Hemoglobin A1c results are invalid for patients with abnormal amounts of HbF. Blood transfusions may impact the HbA1c concentration in the patient sample. Estimated Average Glucose 123 mg/dL [facility] Comment:eAG = Estimated ave rage glucose which is %A1C expressed asaverage glucose, using the formula of the J3Y-EwukqbjGzyhgei Glucose study (ADAG), Diabetes Care, Vol.31,#8,Mar. 2007 Blood Venous blood specimen / Unknown 11/15/2024 8:31 AM EDT 11/15/2024 2:25 PM EDT Tu Lemon MD LAB BLOOD ORDERABL ES Final Result Performing Organization Address [facility] [[email or web address]] Co de Phone Number [facility] [address] [place] [address] [phone] * (ABNORMAL) Lipid Panel, Standard (11/15/2024 8:31 AM EDT) Triglycerides 114 <150 mg/dL [facility] Comment:Desirable Triglyceri de: less than 150 mg/dLBorderline High Triglyceride 150-199 mg/dLHigh Triglyceride: 200-499 mg/dLVery High Triglyceride: greater than or equal to 5OO mg/dL Cholesterol 213(H) <200 mg/dL [facility] Comment:Desirable Cholestero l: less than 200 mg/dLBorderline High Cholesterol: 200-239 mg/dLHigh Cholesterol: greater than 239 mg/dL LDL Cholesterol Calculated 137(H) <100 mg/dL [facility] Comment:Desirable LDL: less than 100 mg/dLNear Optimal/Above Optimal LDL: 110- 129 mg/dLBorderline High LDL: 130-159 mg/dLHigh LDL: 160-189 mg/dLVery High LDL: greater than or equal to 190 mg/dL HDL Cholesterol 54 >40 mg/dL [facility] Comment:Desirable HDL: great er than 40 mg/dL Note: This HDL assay may give artificially low results in patients with liver disease. Blood Venous blood specimen / Unknown 11/15/2024 8:31 AM EDT 11/15/2024 2:18 PM EDT us Tu Lemon MD LAB BLOOD ORDERABL ES Final Result [facility] [address] [place] [address] [phone] * (ABNORMAL) Comprehensive Metabolic Panel (11/15/2024 8:31 AM EDT) Sodium 140 135 - 145 mmol/L [facility] Potassium 4.3 3.3 - 5.1 mmol/L [facility] Chloride 106 96 - 108 mmol/L [facility] Carbon Dioxide 29 22 - 29 mmol/L [facility] Anion Gap 9(L) 12 - 20 [facility] Urea Nitrogen (BUN) 20(H) 9 - 16 mg/dL [facility] Creatinine, Serum 0.70 0.5 - 1.4 mg/dL [facility] Estimated Glomerular Filt Rate >60 [facility] Comment:Chronic Kidney Disea se: Estimated GFR < 60 mL/min/1.56h3Qsrlly Kidney Disease: Estimated GFR < 15 mL/min/1.73m2 Glucose 120(H) 60 - 115 mg/dL [facility] Calcium 8.7 8.4 - 10.2 mg/dL [facility] Bilirubin, Total 0.3 0.0 - 1.0 mg/dL [facility] Aspartate Amino Transferase 17 5 - 31 U/L [facility] Alanine Aminotransferase 18 0 - 31 U/L [facility] Total Protein 6.5 6.5 - 8.0 g/dL [facility] Albumin Level 3.8 3.5 - 5.0 g/dL [facility] Alkaline Phosphatase 61 39 - 117 U/L [facility] Blood Venous blood specimen / Unknown 11/15/2024 8:31 AM EDT 11/15/2024 2:18 PM EDT us Tu Lemon MD LAB BLOOD ORDERABL ES Final Result [facility] [address] [place] [phone] * US LOWER EXTREMITY, SOFT TISSUE (09/15/2024) Anatomical Region Laterality Modality Abdomen Ultrasound us Alpa Wade CNM IMG US PROCEDURES Final R esult * HPV DNA, Low/High Risk (08/31/2024 12:32 PM EST) HPV High Risk Negative Negative [facility] HPV Genotype 16 Negative Negative [facility] HPV Genotype 18 Negative Negative [facility] Comment:HPV testing performe d at [facility] (CLIA#[id number]), [address] [place] [address].Testing for HPV was performed using the Gracia LUCY 6800system. The presence of HPV in the female [...] 2 PM EST 09/01/2024 7:25 AM EST us Alpa Wade CNM LAB BLOOD ORDERABLES Nury l Result [facility] [address] [place] [phone] * Pap Smear (08/31/2024 12:32 PM EST) Swab Cervix uteri structure / Unknown 08/31/2024 12:32 PM EST 09/01/2024 6:30 AM EST Narrative [facility] - 09/12/2024 12:29 PM EST ----- ------- Name: Elizabeth Corona ?Age/Sex: 49/F ? : 1975 Unit#: [id number] ?? Attend Dr: ALPA WADE CNM ?Re08/31/24 ?Status: DEP REF ? Location: HO.LNP ?Disch: ? ----- ------- SPEC : [id number] ? RECD: 09/01/24 ? STATUS: ??SOUT ? REQ NUM: [id number] ? LACEY: 08/31/24-1232 ? SUBM DR: ALPA [...] END OF REPORT ? us Alpa Wade [facility] CYTOLOGY ORDERABLES F inal Result [facility] [address] [place] [phone] * Cologuard?? colon cancer screening (05/18/2024 6:50 AM EDT) Cologuard Result Negative Negative 05/25/20 8:47 PM EDT [facility] (CLIA #:[id number]) Comment: NEGATIVE TEST RESULT. A negative Cologuard [...] cancer. ??Following a negative Cologuard result, the [place] [employer] Society and U.S. Multi-Society Task Force screening guidelines recommend a Cologuard re-screening interval of 3 years. References: [place] [employer] Guideline for Colorectal Cancer Screening: https://www.cancer.org/cancer/yjmlq-tnpjib-ygwbku/nvxgeysqk-vukgkwfaa-vggxkms/ac s-rec ommendations.html.; Stewart DK, Tere SANCHEZ, Love DíazK, Colorectal Cancer Screening: Recommendations for Physicians and Patients from the U.S. Multi-Society Task Force on Colorectal Cancer Screening , Am J Gastroenterology 2017; 112:1295-2622. TEST DESCRIPTION: Composite algorithmic analysis of stool [...] (Redd Benjamin al, N Engl J Med 2014;370(14):3222-5781.) Cologuard may produce a false negative or false positive result (no colorectal cancer or precancerous polyp present at colonoscopy follow up). A negative Cologuard test result does not guarantee the absence of CRC or advanced adenoma (pre-cancer). The current Cologuard screening interval is every 3 years. ([place] [employer] Society and U.S. Multi-Society Task Force). Cologuard performance data in a 10,000 patient pivotal study using colonoscopy as the reference method can be accessed at the following location: www.[facility].com/results. Additional description of the Cologuard test process, warnings and precautions can be found at www.cologuard.[employer]. Stool specimen (specimen) 05/18/2024 6:50 AM EDT 05/19/2024 12:41 PM EDT Tu Lemon MD LAB MOLECULAR DIAG NOSTICS ORDERABLES Final Result [facility] (CLIA #:[id number]) [place] [address] [address], * BI Mammogram Screening Tomosynthesis Bilateral (12/02/2023 2:40 PM EDT) Anatomical Region Laterality Modality Breast Bilateral Mammography 12/02/2023 2:40 PM EDT Narrative 12/27/2023 12:41 PM EDT ? [facility] [place] ? [address] ?[place] [address] ? Mammography Report ? Signed ? Patient: Burton Benjie,Elizabeth ?MR#: ?? [id number] ? : 1975 ?Acct:[id number] ? Age/Sex: 48 / F ?ADM Date: 05/02/24 ? Loc: HO.MAMMO ? Attending Dr: Tu Lemon MD ? Ordering Physician: Tu Vazquez MD ?Res ?? ults: 1Negative ? Date of Service: 12/02/23 ?Follow Up: 1 Year From Orig ?? inal Mammogram ? Procedure(s): MM tomosynthesis screening BI ?? Accession Number(s): [id number] ? cc: Tu Vazquez MD ? EXAMINATION: [...] 1237 ? DD/ 1440 ? TD/TT: ? Fire Range Technician: ? Procedure Note Donotuseinterpreter, Image - [facility] [address] [place] [address] Mammography Report Signed Patient: Kip CoronaeMR#: [id number] : 1975Acct:[id number] Age/Sex: 48 / FADM Date: 12/02/23 Loc: HO.MAMMO Attending Dr: Tu Lemon MD Ordering Physician: Tu Vazquez ults: 1Negative Date of Service: 12/02/23Follow Up: 1 Year From Orig inal Mammogram Procedure(s): MM tomosynthesis screening BI Accession Number(s): [id number] cc: Tu Vazquez MD EXAMINATION: MM SCREENING [...] in OV> 12/27/23 1237 DD/ 1440 TD/TT: Fire Range Technician: Tu Lemon MD IMG BI PROCEDURES Final Result from Last 3 Months or Most Recently Relevant to Health Maintenance Insurance [facility] - [facility] PARTIAL (MEDICAID) Care Teams Dry Goods Inspector Relationship Specialty Start Date End Date Tu Vazquez MD [address] [place] [phone] PCP - General Internal Medicine 12/26/19
== END 2024-12-11 17:51 | disposition left against medical advice (07) ==
PROVIDERS: Emergency Provider Emergency Medicine; PCP Internal Medicine
DX: I10 Essential (primary) hypertension (principal)
CPT/HCPCS: 99281

== ENCOUNTER 2024-12-11 20:30 | Emergency (ER) | payer OTHER, SELFPAY ==
[2024-12-11 20:41] VITALS: BP 140/85; PULSE 84; RESP 18; TEMP 36.3; O2SAT 97; BMI 39.3
[2024-12-11 21:11] VITALS: BP 124/79; PULSE 76; RESP 18; O2SAT 95
--- OUTSIDE RECORDS SUMMARY | 2024-12-11 21:21 | XMS_ITS | Encounter Summary ---
Author Organization [employer] Address [address] [facility] 7 [place] [address] Care Team Providers Care Fixing Machine Operator Name Role Phone Tu Vazquez MD Primary Care Prov ider Reason for Visit * Reason Onset Date Comments Medication Question 09/26/2024 Encounter Details Date Type Department Care Team ([facility] Contact Info) Description 09/26/2024 Telephone [facility] MED & PEDS [address] [place] [address] Tu Vazquez MD [address] [place] [address] Medication Question Social History Tobacco Use Types Packs/Day Years Used Date Smoking Tobacco: Never Passive Smoke Exposure: Never Smokeless Tobacco: Never Alcohol Use Standard Drinks/Week Comments Never 0 (1 standard drink = 0.6 oz pur e alcohol) Depression Answer Date Recorded Patient Health Questionnaire-9 Score 0 07/28/2022 Housing Stability Answer Date Recorded What is your housing situation today? I have maricel vcikers 09/02/[address] you li [...] AM EST TC placed to [facility] specialty pharmacy to inquire on what information is needed regarding the pt Stelara injection prescription. Per [facility], the provider needs to write specifically how often the injectionis given (ie every 6-8 weeks). [facility] was informed that this is a continuation of the medication and the dose will remain the same. * Telephone Encounter - Sonia Rashid - 09/26/2024 11:21 AM EST TC from [facility]ie with specialty [facility] requesting description clarification on medication ustekinumab (Stelara) injection . Would like to know how often and if its a starter dose. Best contact # [phone] extension [phone]. . documented in this encounter Plan of Treatment Upcoming Encounters Date Type Department Care Team (Late st Contact Info) Description 12/28/2024 8:00 AM EDT Office Visit [facility] ADULT DENTAL [address] [place] [address] Edwin Del Valle, DMD [address] [place] [address] documented as of this encounter Visit Diagnoses Not on filedocumented in this encounter Additional Health Concerns Assessment Noted Time PHQ-9 Depression Total Score: 0 07/28/20 22 1:55 PM EST documented as of this encounter Care Teams Fixing Machine Operator Relationship Specialty Start Date End Date Tu Vazquez MD [address] [place] [phone] PCP - General Internal Medicine 12/26/19 documented as of this encounter
--- OUTSIDE RECORDS SUMMARY | 2024-12-11 21:21 | XMS_ITS | Encounter Summary ---
Author Organization [employer] Address [address] [facility] 7t [place] [address] Care Team Providers Care Ornamental Metalwork Designer Name Role Phone Tu Vazquez MD Primary Care Prov ider Encounter Details Date Type Department Care Team (Late st Contact Info) Description 09/19/2024 Orders Only [facility] MED & PEDS [address] [place] [address] Heath Maria MD [address] [place] [address] Psoriasis Social History Tobacco Use Types Packs/Day [...] Description 12/28/2024 8:00 AM EDT Office Visit [facility] ADULT DENTAL [address] [place] [address] Edwin Del Valle, MONA [address] [place] [address] documented as of this encounter Visit Diagnoses Diagnosis Psoriasis Other psoriasis documented in this encounter Additional Health Concerns Assessment Noted Time PHQ-9 Depression Total Score: 0 07/28/20 22 1:55 PM EST documented as of this encounter Care Teams Ornamental Metalwork Designer Relationship Specialty Start Date End Date Tu Vazquez MD [address] [place] [address] PCP - General Internal Medicine 12/26/19 documented as of this encounter
--- OUTSIDE RECORDS SUMMARY | 2024-12-11 21:21 | XMS_ITS | Encounter Summary ---
Author Organization [employer] Address [address] [facility] 7t [place] [address] Care Team Providers Care State Wildlife Officer Name Role Phone Tu Vazquez MD Primary Care Prov ider Encounter Details Date Type Department Care Team (Late st Contact Info) Description 07/04/[address] [facility] CHC MED & PEDS [address] [place] [address] Heath Maria MD [address] [place] [address] Social History Tobacco Use Types Packs/Day Years [...] 12/28/2024 8:00 AM EDT Office Visit [facility] ADULT DENTAL [address] [place] [address] Edwin Del Valle, MONA [address] [place] [address] documented as of this encounter Visit Diagnoses Not on filedocumented in this encounter Additional Health Concerns Assessment Noted Time PHQ-9 Depression Total Score: 0 07/28/20 22 1:55 PM EST documented as of this encounter Care Teams State Wildlife Officer Relationship Specialty Start Date End Date Tu Vazquez MD [address] [place] [address] PCP - General Internal Medicine 12/26/19 documented as of this encounter
--- OUTSIDE RECORDS SUMMARY | 2024-12-11 21:21 | XMS_ITS | Encounter Summary ---
Author Organization [email or web address] Address [address] [facility] [address] 7t [place] [address] Care Team Providers Care Livestock Nutrition Territory Manager Name Role Phone Tu Vazquez MD Primary Care Prov ider Encounter Details Date Type Department Care Team (Late st Contact Info) Description 09/27/2024 Orders Only [facility] MEDICINE [address] [place] [address] Heath Maria MD [address] [place] [address] Psoriasis Social History Tobacco Use Types Packs/Day [...] t he electric, gas, oil or water [employer] threatened to shut off services in your [...] Description 12/28/2024 8:00 AM EDT Office Visit [facility] ADULT DENTAL [address] [place], [place] [phone] Edwin Del Valle, MONA [address] [place] [address] documented as of this encounter Visit Diagnoses Diagnosis Psoriasis Other psoriasis documented in this encounter Additional Health Concerns Assessment Noted Time PHQ-9 Depression Total Score: 0 07/28/20 22 1:55 PM EST documented as of this encounter Care Teams Livestock Nutrition Territory Manager Relationship Specialty Start Date End Date Tu Vazquez MD [address] [place] [address] PCP - General Internal Medicine 12/26/19 documented as of this encounter
--- OUTSIDE RECORDS SUMMARY | 2024-12-11 21:21 | XMS_ITS | Clinical Summary ---
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 Procedure Name Priority Date/Time Associated Diagnosis Comments BASIC METABOLIC PANEL Routine 06/23/2019 3:05 PM EST Essential hypertension from Last 3 Months or Most Recently Relevant to Health Maintenance Results * Due to [place] Hipvan law, this organization might not be sharing negative HIV tests. * Basic metabolic panel (06/23/2019 3:05 PM EST) NA 137 135 - 145 mmol/L 06/23/2019 3:58 PM EST [facility] K 3.9 3.5 - 5.3 mmol/L 06/23/2019 3:58 PM [facility] Cl 100 97 - 110 mmol/L 06/23/2019 3:58 PM [facility] CO2 29 24 - 32 mmol/L 06/23/2019 3:58 PM [facility] BUN 14 7 - 23 mg/dL 06/23/2019 3:58 PM [facility] Creatinine 0.70 0.50 - 1.20 mg/dL 06/23/2019 3:58 PM [facility] Glucose 90 70 - 99 mg/dL 06/23/2019 3:58 PM [facility] Calcium 9.3 8.7 - 10.7 mg/dL 06/23/2019 3:58 PM [facility] Anion Gap 8 5 - 15 06/23/2019 3:58 PM [facility] eGFR Non- >90 >=90 mL/min/BSA 06/23/2019 3:58 PM [facility] eGFR >90 >=90 mL/min/BSA 06/23/2019 3:58 PM [facility] Comment: Units = [...] LAB BLOOD ORDERABLES Final R esult [facility] [address] [place] [address], [place] from Last 3 Months or Most Recently Relevant to Health Maintenance Insurance [employer]/[place] [address] [place] [address] Care Teams Mule Rider Relationship Specialty Start Date End Date Terra Cooper [address] [place] [address] PCP - General Family Medicine 06/07/19
--- OUTSIDE RECORDS SUMMARY | 2024-12-11 21:22 | XMS_ITS | Encounter Summary ---
Author Organization [employer] Address [address] [facility] 7t [place] [address] Care Team Providers Care Adjustment Supervisor Name Role Phone Tu Vazquez MD Primary Care Prov ider Encounter Details Date Type Department Care Team (Late Contact Info) Description 02/19/2023 Orders Only [facility] MEDICINE [address] [place], [place] [phone] Kala Bustillo LPN Social History Tobacco Use [...] Description 12/28/2024 8:00 AM EDT Office Visit [facility] CHC ADULT DENTAL [address] [place], [place] [phone] Edwin Del Valle, MONA [address] [place] [address] documented as of this encounter Visit Diagnoses Not on filedocumented in this encounter Additional Health Concerns Assessment Noted Time PHQ-9 Depression Total Score: 0 07/28/20 22 1:55 PM EST documented as of this encounter Care Teams Adjustment Supervisor Relationship Specialty Start Date End Date Tu Vazquez MD [address] [place] [address] [place] [address] PCP - General Internal Medicine 12/26/19 documented as of this encounter
--- OUTSIDE RECORDS SUMMARY | 2024-12-11 21:22 | XMS_ITS | Encounter Summary ---
Author Organization [employer] Address [address] [place] [address] 7t [place] [address] Care Team Providers Care Plan Coordinator Name Role Phone Tu Vazquez MD Primary Care Prov ider Encounter Details Date Type Department Care Team (Latest Contact Info) Description 10/13/2018 Abstract [facility] CONVERSIONS Dental, Provider, DDS Social History [...] Description 12/28/2024 8:00 AM EDT Office Visit [facility] CHC ADULT DENTAL [address] [place] [address] Edwin Del Valle, DMD [address] [place] [address] documented as of this encounter Visit Diagnoses Not on filedocumented in this encounter Care Teams Plan Coordinator Relationship Specialty Start Date End Date Tu Vazquez MD [address] [place] [address] PCP - General Internal Medicine 12/26/19 documented as of this encounter
--- OUTSIDE RECORDS SUMMARY | 2024-12-11 21:22 | XMS_ITS | Clinical Summary ---
Author Organization [employer] Address [address] [facility] 7t [place] [address] Care Team Providers Care J2Ee Application Developer Name Role Phone Tu Vazquez MD Primary Care Prov ider Allergies Active Allergy Reactions Criticality Noted Date Comments Hydralazine Hives,Unknown 06/05/2019 Pork-Derived Products Shortness of breath High 06/23 Medications Fluocinolone Acetonide Scalp ([place]-Smoothe/F S Scalp) 0.01 % oilIndications:P soriasis Once [...] Type Department Care Team Description 12/11/2024 Refill [facility] MED & PEDS [address] [place] [address] Tu Vazquez MD Primary hypertension 12/05/2024 3:00 PM EDT Office Visit [facility] ADULT DENTAL [address] [place] [address] Saqib Maria Dental caries (Primary Dx); Dental calculus 11/21/2024 Refill [facility] MED & PEDS [address] [place] [address] Tu Vazquez MD 10/30/2024 8:45 AM EDT Telemedicine [facility] CHC MED & PEDS [address] [place] [address] Tu Vazquez MD Primary hypertension (Primary Dx); Acquired hypothyroidism 10/06/2024 Refill [facility] MED & PEDS [address] [place] [address] Tu Vazquez MD Primary hypertension 09/27/2024 Orders Only [facility] MEDICINE [address] [place] [phone] Heath Maria MD Psoriasis 09/26/2024 Telephone [facility] MED & PEDS [address] [place] [address] Tu Vazquez MD Medication Question 09/20/[address] [facility] MEDICINE [address] [place] [phone] Alpa Wade, [facility] Results; Referral 09/19/2024 11:15 AM EST Office Visit [facility] CHC MED & PEDS [address] [place] [address] Heath Maria MD Psoriasis (Primary Dx); Psoriasis 09/19/2024 Travel 09/19/2024 Orders Only [facility] MED & PEDS [address] [place] [address] Heath Maria MD Psoriasis 09/14/2024 Telephone [facility] MED & PEDS [address] [place] [address] Heath Maria MD Stelera Question 09/13/2024 Refill [facility] MED & PEDS [address] [place] [address] Tu Vazquez MD Psoriasis 09/13/2024 Telephone [facility] MED & PEDS [address] [place] [address] Tu Vazquez MD Med Refill from Last [...] [facility] ADULT DENTAL [address] [place] [address] Edwin Del Valle, DMD [address] [place] [address] Health Maintenance Due Date Last Done Comments [...] Free T4 3.91 0.32 - 4.0 uIU/mL [facility] Blood Venous blood specimen / Unknown 11/15/2024 8:31 AM EDT 11/15/2024 2:18 PM EDT us Tu Lemon MD LAB BLOOD ORDERABL ES Final Result [facility] [address] [place] [address] [phone] * (ABNORMAL) CBC auto differential (11/15/2024 8:31 AM EDT) White Blood Count 6.8 4.8 - 10.8 X10*3/uL [facility] Red Blood Count 4.81 4.20 - 5.50 X10*6/uL [facility] Hemoglobin 13.8 12.0 - 16.0 g/dl [facility] Hematocrit 42.3 37.0 - 47.0 % [facility] Mean Corpuscular Volume 87.9 80.0 - 98.0 fL [facility] Mean Corpuscular Hemoglobin 28.7 27.0 - 33.0 pg [facility] Mean Corpuscular HGB Conc 32.6 31.0 - 35.0 g/dl [facility] Red Cell Distribution Width 13.2 11.0 - 16.0 % [facility] Platelet Count 225 160 - 400 X10*3/uL [facility] Mean Platelet Volume 10.8 9.4 - 12.3 fL [facility] Neutrophils Percent Auto 60.0 45 - 73 % [facility] Imm Gran Pct Auto 0.3 0.0 - 0.4 % [facility] Lymphocytes Percent Auto 24.2 20 - 40 % [facility] Monocytes Percent Auto 9.4 2 - 11 % [facility] Eosinophils Percent Auto 5.4(H) 0 - 4 % [facility] Basophils Percent Auto 0.7 0 - 2 % [facility] NRBC Pct Auto 0.0 0.0 - 0.2 /100WBC [facility] Neutrophils Absolute Auto 4.1 2.0 - 8.3 x10*3/uL [facility] Imm Gran Abs Auto 0.02 0.00 - 0.03 X10*3/uL [facility] Lymphocytes Absolute Auto 1.6 1.2 - 4.9 X10*3/uL [facility] Monocytes Absolute Auto 0.6 0.1 - 1.2 X10*3/uL [facility] Eosinophils Absolute Auto 0.4 0.0 - 0.4 X10*3/uL [facility] Basophils Absolute Auto 0.1 0.0 - 0.2 X10*3/uL [facility] NRBC Abs Auto 0.000 0.0 - 0.012 X10*3/uL [facility] Blood Venous blood specimen / Unknown 11/15/2024 8:31 AM EDT 11/15/2024 2:25 PM EDT Tu Lemon MD LAB BLOOD ORDERABL ES Final Result Performing Organization Address [facility] Co de Phone Number [facility] [address] [place] [phone] * Hepatitis C Antibody with Reflex to HCV, RNA, Quantitative, Real-Time PCR (11/15/2024 8:31 AM EDT) Hepatitis C Antibody Nonreactive Nonreactive [facility] Comment:Antibodies to HCV no t detected; does not exclude early acuteHCV infection. Blood Venous blood specimen / Unknown 11/15/2024 8:31 AM EDT 11/15/2024 2:18 PM EDT Tu Lemon MD LAB BLOOD ORDERABL ES Final Result Performing Organization Address [facility] [facility] Co de Phone Number [facility] [address] [place] [address] [phone] * HIV-1/2 Antigen and Antibodies, Fourth Generation, with Reflexes (11/15/2024 8:31 AM EDT) HIV AB/AG Nonreactive Nonreactive [facility] Comment:HIV-1 p24 Ag and/or HIV-1/HIV-2 Ab not detected.A test result that is nonreactive does not exclude thepossibility of exposure to or infection with HIV-1 and/orHIV-2. Nonreactive results in this assay for individualswith prior exposure to HIV-1 and/or HIV-2 may be due toantigen and antibody levels that are below the limit ofdetection of this assay.The [facility] HIV Ag/Ab Combo assay result andsupplemental assay results should be interpreted inconjunction with the patient's clinical presentation,history and other laboratory results. If the results areinconsistent with clinical evidence, additional testing issuggested to confirm the result. Blood Venous blood specimen / Unknown 11/15/2024 8:31 AM EDT 11/15/2024 2:18 PM EDT Tu Lemon MD LAB BLOOD ORDERABL ES Final Result Performing Organization Address [facility] Co de Phone Number [facility] [address] [place] [phone] * Hemoglobin A1c (11/15/2024 8:31 AM EDT) Hemoglobin A1c 5.9 <6.0 % [facility] Comment:Hemoglobin A1C Refer ence Range Adults: 4.8 - 6.0 % Non diabetic: < 6.0 % Goal: < 7.0 %Additional Action Suggested: > 8.0 %Note: Hemoglobin A1c results are invalid for patients with abnormal amounts of HbF. Blood transfusions may impact the HbA1c concentration in the patient sample. Estimated Average Glucose 123 mg/dL [facility] Comment:eAG = Estimated ave rage glucose which is %A1C expressed asaverage glucose, using the formula of the B2G-IfducqfYzjthns Glucose study (ADAG), Diabetes Care, Vol.31,#8,Mar. 2007 Blood Venous blood specimen / Unknown 11/15/2024 8:31 AM EDT 11/15/2024 2:25 PM EDT Tu Lemon MD LAB BLOOD ORDERABL ES Final Result Performing Organization Address [facility] Co de Phone Number [facility] [address] [place] [address] [phone] * (ABNORMAL) Lipid Panel, Standard (11/15/2024 8:31 AM EDT) Triglycerides 114 <150 mg/dL [facility] Comment:Desirable Triglyceri de: less than 150 mg/dLBorderline High Triglyceride 150-199 mg/dLHigh Triglyceride: 200-499 mg/dLVery High Triglyceride: greater than or equal to 5OO mg/dL Cholesterol 213(H) <200 mg/dL [facility] Comment:Desirable Cholestero l: less than 200 mg/dLBorderline High Cholesterol: 200-239 mg/dLHigh Cholesterol: greater than 239 mg/dL LDL Cholesterol Calculated 137(H) <100 mg/dL [facility] Comment:Desirable LDL: less than 100 mg/dLNear Optimal/Above Optimal LDL: 110- 129 mg/dLBorderline High LDL: 130-159 mg/dLHigh LDL: 160-189 mg/dLVery High LDL: greater than or equal to 190 mg/dL HDL Cholesterol 54 >40 mg/dL [facility] Comment:Desirable HDL: great er than 40 mg/dL Note: This HDL assay may give artificially low results in patients with liver disease. Blood Venous blood specimen / Unknown 11/15/2024 8:31 AM EDT 11/15/2024 2:18 PM EDT us Tu Lemon MD LAB BLOOD ORDERABL ES Final Result [facility] [address] [place] [address] [phone] * (ABNORMAL) Comprehensive Metabolic Panel (11/15/2024 8:31 AM EDT) Sodium 140 135 - 145 mmol/L [facility] Potassium 4.3 3.3 - 5.1 mmol/L [facility] Chloride 106 96 - 108 mmol/L [facility] Carbon Dioxide 29 22 - 29 mmol/L [facility] Anion Gap 9(L) 12 - 20 [facility] Urea Nitrogen (BUN) 20(H) 9 - 16 mg/dL [facility] Creatinine, Serum 0.70 0.5 - 1.4 mg/dL [facility] Estimated Glomerular Filt Rate >60 [facility] Comment:Chronic Kidney Disea se: Estimated GFR < 60 mL/min/1.92a4Pobfeq Kidney Disease: Estimated GFR < 15 mL/min/1.73m2 Glucose 120(H) 60 - 115 mg/dL [facility] Calcium 8.7 8.4 - 10.2 mg/dL [facility] Bilirubin, Total 0.3 0.0 - 1.0 mg/dL [facility] Aspartate Amino Transferase 17 5 - 31 U/L [facility] Alanine Aminotransferase 18 0 - 31 U/L [facility] Total Protein 6.5 6.5 - 8.0 g/dL [facility] Albumin Level 3.8 3.5 - 5.0 g/dL [facility] Alkaline Phosphatase 61 39 - 117 U/L [facility] Blood Venous blood specimen / Unknown 11/15/2024 8:31 AM EDT 11/15/2024 2:18 PM EDT us Tu Lemon MD LAB BLOOD ORDERABL ES Final Result [facility] [address] [place] [phone] * US LOWER EXTREMITY, SOFT TISSUE (09/15/2024) Anatomical Region Laterality Modality Abdomen Ultrasound us Alpa Wade CNM IMG US PROCEDURES Final R esult * HPV DNA, Low/High Risk (08/31/2024 12:32 PM EST) HPV High Risk Negative Negative [facility] HPV Genotype 16 Negative Negative [facility] HPV Genotype 18 Negative Negative [facility] Comment:HPV testing performe d at [facility] (CLIA#[id number]), [address] [place] [phone].Testing for HPV was performed using the Gracia [...] CNM LAB BLOOD ORDERABLES Nury l Result [facility] [address] [place] [phone] * Pap Smear (08/31/2024 12:32 PM EST) Swab Cervix uteri structure / Unknown 08/31/2024 12:32 PM EST 09/01/2024 6:30 AM EST Narrative [facility] - 09/12/2024 12:29 PM EST ----- ------- Name: Elizabeth Corona ?Age/Sex: 49/F ? : 1975 Unit#: [id number] ?? Attend Dr: ALPA WADE CNM ?Re08/31/24 ?Status: DEP REF ? Location: HO.LNP ?Disch: ? ----- ------- SPEC : [id number] ? RECD: 09/01/24 ? STATUS: ??SOUT ? REQ NUM: [id number] ? LACEY: 08/31/24-1232 ? SUBM DR: ALPA [...] END OF REPORT ? us Alpa Wade [facility] CYTOLOGY ORDERABLES F inal Result [facility] [address] [place] [phone] * Cologuard?? colon cancer screening (05/18/2024 6:50 AM EDT) Cologuard Result Negative Negative 05/25/20 8:47 PM EDT [facility] (CLIA #:[id number]) Comment: NEGATIVE TEST RESULT. A negative Cologuard [...] cancer. ??Following a negative Cologuard result, the [place] Cancer Society and U.S. Multi-Society Task Force screening guidelines recommend a Cologuard re-screening interval of 3 years. References: [place] [employer] Society Guideline for Colorectal Cancer Screening: https://www.cancer.org/cancer/zxzel-uvmcfw-fphuqb/kpvicsbsr-pkxxejkib-khsxqvi/ac s-rec ommendations.html.; Stewart DK, Tere SANCHEZ, Love DíazK, Colorectal Cancer Screening: Recommendations for Physicians and Patients from the U.S. Multi-Society Task Force on Colorectal Cancer Screening , Am J Gastroenterology 2017; 112:8113-9301. TEST DESCRIPTION: Composite algorithmic analysis of stool [...] (Redd Benjamin al, N Engl J Med 2014;370(14):3284-3076.) Cologuard may produce a false negative or false positive result (no colorectal cancer or precancerous polyp present at colonoscopy follow up). A negative Cologuard test result does not guarantee the absence of CRC or advanced adenoma (pre-cancer). The current Cologuard screening interval is every 3 years. ([place] Cancer Society and U.S. Multi-Society Task Force). Cologuard performance data in a 10,000 patient pivotal study using colonoscopy as the reference method can be accessed at the following location: www.[employer].com/results. Additional description of the Cologuard test process, warnings and precautions can be found at www.cologuard.Breath of Life. Stool specimen (specimen) 05/18/2024 6:50 AM EDT 05/19/2024 12:41 PM EDT Tu Lemon MD LAB MOLECULAR DIAG NOSTICS ORDERABLES Final Result [facility] (CLIA #:[id number]) [place] [address] [address], * BI Mammogram Screening Tomosynthesis Bilateral (12/02/2023 2:40 PM EDT) Anatomical Region Laterality Modality Breast Bilateral Mammography 12/02/2023 2:40 PM EDT Narrative 12/27/2023 12:41 PM EDT ? [facility] [place] ? [address] ?[place] [address] ? Mammography Report ? Signed ? Patient: Burton Benjie,Elizabeth ?MR#: ?? [id number] ? : 1975 ?Acct:[id number] ? Age/Sex: 48 / F ?ADM Date: 05/02/24 ? Loc: HO.MAMMO ? Attending Dr: Tu Lemon MD ? Ordering Physician: Tu Vazquez MD ?Res ?? ults: 1Negative ? Date of Service: 12/02/23 ?Follow Up: 1 Year From Orig ?? inal Mammogram ? Procedure(s): MM tomosynthesis screening BI ?? Accession Number(s): [id number] ? cc: Tu Vazquez MD ? EXAMINATION: [...] 1237 ? DD/ 1440 ? TD/TT: ? Gill Net Stringer: ? Procedure Note Donotuseinterpreter, Image - 12/27/2023 [facility] [address] [place] [address] Mammography Report Signed Patient: Kip CoronaeMR#: [id number] : 1975Acct:[id number] Age/Sex: 48 / FADM Date: 12/02/23 Loc: HO.MAMMO Attending Dr: Tu Lemon MD Ordering Physician: Tu Vazquez ults: 1Negative Date of Service: 12/02/23Follow Up: 1 Year From Orig inal Mammogram Procedure(s): MM tomosynthesis screening BI Accession Number(s): [id number] cc: Tu Vazquez MD EXAMINATION: MM SCREENING [...] in OV> 12/27/23 1237 DD/ 1440 TD/TT: Gill Net Stringer: Tu Lemon MD IMG BI PROCEDURES Final Result from Last 3 Months or Most Recently Relevant to Health Maintenance Insurance [facility] - HSN PARTIAL (MEDICAID) Care Teams J2E[employer] Application Developer Relationship Specialty Start Date End Date uT Vazquez MD [address] [place] [phone] PCP - General Internal Medicine 12/26/19
--- OUTSIDE RECORDS SUMMARY | 2024-12-11 21:22 | XMS_ITS | Encounter Summary ---
Author Organization [employer] Address [address] [facility] 7t [place] [address] Care Team Providers Care Clinic Supervisor Name Role Phone Tu Vazquez MD Primary Care Prov ider Encounter Details Date Type Department Care Team (Latest Contact Info) Description 06/08/2022 Abstract [facility] CONVERSIONS Dental, Provider, DDS Social [...] Description 12/28/2024 8:00 AM EDT Office Visit [facility] ADULT DENTAL [address] [place] [address] Edwin Del Valle, DMD [address] [place] [address] documented as of this encounter Visit Diagnoses Not on filedocumented in this encounter Care Teams Clinic Supervisor Relationship Specialty Start Date End Date Tu Vazquez MD [address] [place] [address] PCP - General Internal Medicine 12/26/19 documented as of this encounter
--- OUTSIDE RECORDS SUMMARY | 2024-12-11 21:22 | XMS_ITS | Encounter Summary ---
Author Organization [employer] Address [address] [place] [address] 7t [place] [address] Care Team Providers Care Filler Picker Name Role Phone Tu Vazquez MD Primary Care Prov ider Encounter Details Date Type Department Care Team (Latest Contact Info) Description 04/17/2019 Abstract [facility] CONVERSIONS Dental, Provider, DDS Social [...] Description 12/28/2024 8:00 AM EDT Office Visit [facility] ADULT DENTAL [address] [place] [address] Edwin Del Valle, DMD [address] [place] [address] documented as of this encounter Visit Diagnoses Not on filedocumented in this encounter Care Teams Filler Picker Relationship Specialty Start Date End Date Tu Vazquez MD [address] [place] [address] PCP - General Internal Medicine 12/26/19 documented as of this encounter
--- OUTSIDE RECORDS SUMMARY | 2024-12-11 21:22 | XMS_ITS | Encounter Summary ---
Author Organization [employer] Address [address] [facility] 7t [place] [address] Care Team Providers Care Topper Press Operator Automatic Name Role Phone Tu Vazquez MD Primary Care Prov ider Encounter Details Date Type Department Care Team (Latest Contact Info) Description 01/29/[address] [facility] [...] Description 12/28/2024 8:00 AM EDT Office Visit [facility] CHC ADULT DENTAL [address] [place] [address] Edwin Del Valle, DMD [address] [place] [address] documented as of this encounter Visit Diagnoses Not on filedocumented in this encounter Care Teams Topper Press Operator Automatic Relationship Specialty Start Date End Date Tu Vazquez MD [address] [place] [address] PCP - General Internal Medicine 12/26/19 documented as of this encounter
--- OUTSIDE RECORDS SUMMARY | 2024-12-11 21:22 | XMS_ITS | Encounter Summary ---
Author Organization [employer] Address [address] [place] [address] 7 [place] [address] Care Team Providers Care Drug Safety Coordinator Name Role Phone Tu Vazquez MD Primary Care Prov ider Reason for Referral * Medications - Closed Specialty Diagnoses / Procedures Referred By Contac t Referred To Contact Heath Maria MD [address] [place] [address] Phone: tel: fax: Referral ID Status Reason Start Date Expiration Date Visits Re quested Visits Authorized [id number] Closed 1 1 Encounter Details Date Type Department Care Team (Late st Contact Info) Description 02/19/2023 Orders Only [facility] CHC MED & PEDS [address] [place] [address] Heath Maria MD [address] [place] [address] Social History Tobacco Use Types Packs/Day Years [...] Upcoming Encounters Date Type Department Care Team ([facility] st Contact Info) Description 12/28/2024 8:00 AM EDT Office Visit [facility] ADULT DENTAL [address] [place] [address] Edwin Del Valle, DMD [address] [place] [address] documented as of this encounter Visit Diagnoses Not on filedocumented in this encounter Additional Health Concerns Assessment Noted Time PHQ-9 Depression Total Score: 0 07/28/20 22 1:55 PM EST documented as of this encounter Care Teams Drug Safety Coordinator Relationship Specialty Start Date End Date Tu Vazquez MD [address] [place] [address] PCP - General Internal Medicine 12/26/19 documented as of this encounter
--- OUTSIDE RECORDS SUMMARY | 2024-12-11 21:22 | XMS_ITS | Encounter Summary ---
Author Organization [employer] Address [address] [facility] 7t [place] [address] Care Team Providers Care Barn Worker Name Role Phone Tu Vazquez MD Primary Care Prov ider Encounter Details Date Type Department Care Team (Late st Contact Info) Description 08/24/2024 Orders Only [facility] CHC MED & PEDS [address] [place] [address] Heath Maria MD [address] [place] [address] Psoriasis (Primary Dx) Social History Tobacco Use [...] Description 12/28/2024 8:00 AM EDT Office Visit [facility] ADULT DENTAL [address] [place] [address] Edwin Del Valle, MONA 505 [place] [address] documented as of this encounter Visit Diagnoses Diagnosis Psoriasis- Primary Other psoriasis documented in this encounter Additional Health Concerns Assessment Noted Time PHQ-9 Depression Total Score: 0 07/28/20 22 1:55 PM EST documented as of this encounter Care Teams Barn Worker Relationship Specialty Start Date End Date Tu Vazquez MD [address] [place] [address] PCP - General Internal Medicine 12/26/19 documented as of this encounter
--- OUTSIDE RECORDS SUMMARY | 2024-12-11 21:22 | XMS_ITS | Encounter Summary ---
Author Organization [employer] Address [address] [place] [address] 7t [place] [address] Care Team Providers Care Associate Medical Director Name Role Phone Tu Vazquez MD Primary Care Prov ider Encounter Details Date Type Department Care Team (Late Contact Info) Description 04/01/2023 Abstract [facility] ADULT DENTAL [address] [place] [address] Saqib Maria Social History Tobacco Use Types [...] 8:00 AM EDT Office Visit [facility] ADULT DENTAL [address] [place], [place] [phone] Edwin Del Valle DMD [address] [place] [address] documented as of this encounter Visit Diagnoses Not on filedocumented in this encounter Additional Health Concerns Assessment Noted Time PHQ-9 Depression Total Score: 0 07/28/20 22 1:55 PM EST documented as of this encounter Care Teams Associate Medical Director Relationship Specialty Start Date End Date Tu Vazquez MD [address] [place] [address] PCP - General Internal Medicine 12/26/19 documented as of this encounter
--- OUTSIDE RECORDS SUMMARY | 2024-12-11 21:22 | XMS_ITS | Encounter Summary ---
Author Organization [employer] Address [address] [facility] 7t [place] [address] Care Team Providers Care Dna Analyst Name Role Phone Tu Vazquez MD Primary Care Prov ider Reason for Visit * Reason Onset Date Comments Med Refill 12/11/2024 Encounter Details Date Type Department Care Team ([facility] Contact Info) Description 12/11/2024 Refill [facility] CHC MED & PEDS [address] [place] [address] Tu Vazquez MD 505 [place] [address] Primary hypertension Social History Tobacco Use Types [...] Description 12/28/2024 8:00 AM EDT Office Visit [facility] CHC ADULT DENTAL [address] [place] [address] Edwin Del Valle, MONA [address] [place] [address] documented as of this encounter Visit Diagnoses Diagnosis Primary hypertension Unspecified essential hypertension documented in this encounter Additional Health Concerns Assessment Noted Time PHQ-9 Depression Total Score: 3 10/31/19 25 8:40 AM EDT documented as of this encounter Care Teams Dna Analyst Relationship Specialty Start Date End Date Tu Vazquez MD [address] [place] [address] PCP - General Internal Medicine 12/26/19 documented as of this encounter
--- NOTE | 2024-12-11 23:18 | ED_ITS ---
HPI - General Adult General Chief complaint: General Medical Stated complaint: ran out of high blood pressure meds Time Seen by Provider: 12/11/24 23:18 History of Present Illness ED Provider: Bernard COOK narrative: The patient is a 49-year-old woman with a history of hypertension who says that she normally takes losartan, hydrochlorothiazide, and atenolol. She takes atenolol 50 mg daily. She has recently run out of atenolol. She came to the emergency department here 2 days ago and received a prescription for 2 days of atenolol. She also contacted her regular doctor but says that her regular pharmacy will not have the atenolol for about 2 or 3 days. She therefore returned here because her regular prescription was sent to her regular pharmacy which does not have the atenolol. She is here asking for a dose of atenolol (for today's regular dose) and also for a small prescription to be sent to a different pharmacy so that she can obtain additional atenolol before her regular pharmacy is restart with the atenolol. The patient is also requesting medication for her albuterol nebulizer machine. She says that she has environmental allergies that are exacerbated in the spring and she does not have any albuterol for her machine. She does not feel that she is wheezing at the moment however. Related Data Home Medications ?Medication ?Instructions ?Recorded ?Confirmed atenolol 50 mg tablet 50 mg PO DAILY 09/08/22 03/17/23 hydrochlorothiazide 25 mg tablet 25 mg PO DAILY 09/08/22 03/17/23 levothyroxine 75 mcg tablet 75 mcg PO DAILY 09/08/22 03/17/23 ustekinumab 45 mg/0.5 mL 45 mg subcut Q12W 09/08/22 03/17/23 subcutaneous syringe (Stelara) losartan 100 mg tablet 100 mg PO DAILY 09/14/22 03/17/23 Previous Rx's ?Medication ?Instructions ?Recorded albuterol sulfate 90 mcg/actuation 2 puff inhalation Q4-6H PRN 03/12/21 aerosol inhaler shortness of breath or wheezing #6.7 grams fluticasone propionate 50 2 spray intranasal DAILY #16 grams 03/12/21 mcg/actuation nasal spray,suspension (Flonase Allergy Relief) bisacodyl 5 mg tablet,delayed 10 mg (2 x 5 mg) PO ONCE 1 day #2 09/08/22 release (Dulcolax (bisacodyl)) tabs polyethylene glycol 3350 17 17 g PO DAILY #510 grams 09/08/22 gram/dose oral powder (Miralax) polyethylene glycol 3350 17 238 g PO ONCE #238 grams 09/08/22 gram/dose oral powder (Miralax) albuterol sulfate 1.25 mg/3 mL 1.25 mg (3 mL) inhalation Q4-6H 11/25/22 solution for nebulization PRN shortness of breath or wheezing #90 mL lidocaine 5 % topical patch 1 patch topical DAILY #15 ea 07/17/23 naproxen 500 mg tablet 500 mg PO BID PRN pain #20 tabs 07/17/23 albuterol sulfate 90 mcg/actuation 2 puff inhalation Q4-6H PRN 08/18/23 aerosol inhaler shortness of breath or wheezing #8.5 grams prednisone 50 mg tablet 50 mg PO DAILY #4 tabs 08/18/23 diphenhydramine HCl 25 mg capsule 50 mg (2 x 25 mg) PO ONCE PRN 03/16/24 (Benadryl) allergic reaction #10 caps famotidine 40 mg tablet (Pepcid) 40 mg PO ONCE PRN allergic 03/16/24 reaction #5 tabs prednisone 50 mg tablet 50 mg PO ONCE PRN allergic 03/16/24 reaction #5 tabs atenolol 50 mg tablet 50 mg PO DAILY 30 days #30 tabs 05/14/24 amoxicillin 875 mg-potassium 1 tab PO BID #14 tabs 07/03/24 clavulanate 125 mg tablet hydrocortisone-acetic acid 1 %-2 % 5 drp otic (ear) right QID #10 mL 07/03/24 ear drops atenolol 50 mg tablet 50 mg PO DAILY #2 tabs 12/09/24 albuterol sulfate 2.5 mg/3 mL 2.5 mg (3 mL) inhalation Q4-6H PRN 12/11/24 (0.083 %) solution for nebulization shortness of breath or wheezing #90 mL atenolol 50 mg tablet 50 mg PO DAILY #10 tabs 12/11/24 Allergies Allergy/AdvReac Type Severity Reaction Status Date / Time dipyrone [DIPYRONE] Allergy Unknown Difficulty Verified 12/11/24 20:43 Breathing pork derived (porcine) Allergy Unknown Difficulty Verified 12/11/24 20:43 Breathing Review of Systems Review of Systems: Yes all other systems are reviewed and are negative [facility] Past Medical History Medical History Sleep apnea Hypothyroidism HTN (hypertension) Asthma Surgical History Surgical history unknown Family History Family History Mother Heart attack Obesity Hypertension Depression Father Heart attack Diabetes Hypertension Brother Heart attack Social History Social History Alcohol intake: never Patient Tobacco Use Status: Never used Tobacco Smoked in Last 30 Days: No Use of substances other than those prescribed or required for medical reasons: No Advance Directives: No Advance Directives Information Provided: No Do you have a plan to hurt others: No Plan Patient : No Physical Exam ED Vital Signs: Vital Signs - 24 hr 12/11/24 20:41 12/11/24 21:11 12/11/24 23:36 Temperature 97.4 F Pulse Rate 84 76 72 Respiratory Rate 18 18 Blood Pressure 140/85 H 124/79 145/94 H Pulse Oximetry 97 95 Oxygen Delivery Method Room Air Room Air 12/11/24 23:38 Temperature 97.6 F Pulse Rate 76 Respiratory Rate 18 Blood Pressure 145/94 H Pulse Oximetry 96 Oxygen Delivery Method Room Air BMI result Body Mass Index 39.3 Const General: cooperative, healthy appearing, comfortable, no acute distress, well developed, awake and Physically active Orientation/consciousness: patient oriented x3 HENAK Other: Face is symmetrical. Mucous membranes moist Eyes General: appearance normal, both eyes and all related structures Neck Neck: Yes normal visual inspection, Yes full ROM and Yes no JVD Resp Effort & Inspection: normal respiratory effort Auscultation: clear to auscultation bilaterally Cardio Rate: regular rate Rhythm: regular rhythm Heart sounds: S1 normal heart sound present and S2 normal heart sound present Skin Other: skin is dry and unremarkable Neuro General: patient oriented x3, gait normal, moves all extremities, no focal motor deficits and CN's II-XI intact bilaterally Extrem Other: no peripheral edema, no calf swelling or tenderness Medications Administered Discontinued Medications Generic Name Dose Route Start Last Admin Trade Name Atilio PRN Reason Stop Dose Admin Atenolol 50 mg 12/11/24 23:28 12/11/24 23:36 Atenolol 50 Mg Tablet PO 12/11/24 23:29 50 mg ONCE ONE Administration Protocol Medical Decision Making Medical Decision Making [facility] Narrative: the patient is a 49-year-old woman with a history of hypertension who is on hydrochlorothiazide, losartan, and atenolol. Apparently she has run out of her atenolol and seems to be having trouble getting the prescription refilled. She was here 2 days ago for the same problem and was given a prescription for 2 tablets of atenolol. She apparently has her other medications. It seems as though the pharmacy to which her primary care doctor sent her replacement subscript chin is out of stock of atenolol. The patient presents here asking for a prescription for atenolol to be sent to a different pharmacy. She also says that she has trouble with seasonal allergies and has no albuterol for her albuterol nebulizer machine that she uses from time to time in the spring. I will send a prescription for 10 days of atenolol 50 mg once a day and a prescription for albuterol neb use to the pharmacy she requested. Otherwise the patient is asymptomatic and an looks entirely well. Discharge Plan Discharge Clinical Impression: Medication refill Patient Disposition: Home, Self-Care Additional Instructions: I have sent a prescription for 10 tablets of atenolol, 50 mg each, to the [facility] pharmacy on [facility] in [place]. I have also sent a prescription for albuterol that you may use with the your nebulizer machine at home. Please follow up with your regular doctor. Return to the emergency room if worse. Prescriptions: New atenolol 50 mg tablet 50 mg PO DAILY Qty: 10 0RF albuterol sulfate 2.5 mg /3 mL (0.083 %) solution for nebulization 2.5 mg inhalation Q4-6H PRN (Reason: shortness of breath or wheezing) Qty: 90 0RF No Action albuterol sulfate 90 mcg/actuation HFA aerosol inhaler 2 puff inhalation Q4-6H PRN (Reason: shortness of breath or wheezing) Qty: 6.7 0RF fluticasone propionate [Flonase Allergy Relief] 50 mcg/actuation spray,suspension 2 spray intranasal DAILY Qty: 16 0RF Rx Instructions: administer into each nostril diphenhydramine HCl [Benadryl] 25 mg capsule 50 mg PO ONCE PRN (Reason: allergic reaction) Qty: 10 0RF famotidine [Pepcid] 40 mg tablet 40 mg PO ONCE PRN (Reason: allergic reaction) Qty: 5 0RF prednisone 50 mg tablet 50 mg PO ONCE PRN (Reason: allergic reaction) Qty: 5 0RF atenolol 50 mg tablet 50 mg PO DAILY 30 Days Qty: 30 0RF amoxicillin-pot clavulanate 875-125 mg tablet 1 tab PO BID Qty: 14 0RF hydrocortisone-acetic acid 1-2 % drops 5 drp otic (ear) right QID Qty: 10 0RF atenolol 50 mg tablet 50 mg PO DAILY Qty: 2 0RF albuterol sulfate 1.25 mg/3 mL solution for nebulization 1.25 mg inhalation Q4-6H PRN (Reason: shortness of breath or wheezing) Qty: 90 0RF naproxen 500 mg tablet 500 mg PO BID PRN (Reason: pain) Qty: 20 0RF lidocaine 5 % adhesive patch,medicated 1 patch topical DAILY Qty: 15 0RF Rx Instructions: leave on most painful area for up to 12 hrs prednisone 50 mg tablet 50 mg PO DAILY Qty: 4 0RF albuterol sulfate 90 mcg/actuation HFA aerosol inhaler 2 puff inhalation Q4-6H PRN (Reason: shortness of breath or wheezing) Qty: 8.5 0RF hydrochlorothiazide 25 mg tablet 25 mg PO DAILY atenolol 50 mg tablet 50 mg PO DAILY Stelara 45 mg/0.5 mL syringe 45 mg subcut Q12W levothyroxine 75 mcg tablet 75 mcg PO DAILY bisacodyl [Dulcolax (bisacodyl)] 5 mg tablet,delayed release (DR/EC) 10 mg PO ONCE 1 Days Qty: 2 0RF Rx Instructions: take 2 tabs at noon the day before your colonoscopy polyethylene glycol 3350 [Miralax] 17 gram/dose powder 238 g PO ONCE Qty: 238 0RF Rx Instructions: As directed by gastroenterology department at [facility] polyethylene glycol 3350 [Miralax] 17 gram/dose powder 17 g PO DAILY Qty: 510 2RF losartan 100 mg tablet 100 mg PO DAILY Referrals: Heath Maria MD [Primary Care Provider] - Interventions: ED Discharge Assessment Last Done: 12/11/24 23:38 Discharge Date/Time: 12/11/24 23:39 Print Language: Chinese
[2024-12-11 23:36] VITALS: BP 145/94; PULSE 72
[2024-12-11] MEDS: atenoloL 50 MG TABLET PO (23:36)
[2024-12-11 23:38] VITALS: BP 145/94; PULSE 76; RESP 18; TEMP 36.4; O2SAT 96
== END 2024-12-11 23:39 | disposition home or self-care (01) ==
PROVIDERS: Emergency Provider Emergency Medicine; PCP Internal Medicine
DX: Z76.0 Encounter for issue of repeat prescription (principal); I10 Essential (primary) hypertension
CPT/HCPCS: 99283; 99284

== ENCOUNTER → 2024-12-21 16:00 | Outpatient (BNV) | payer OTHER, SELFPAY | PROVIDERS: PCP Internal Medicine; Visit Provider Internal Medicine | DX: Z12.31 Encounter for screening mammogram for malignant neoplasm of breast (principal) | CPT/HCPCS: 77063; 77067 ==

== ENCOUNTER 2024-12-21 16:01 | Outpatient (REF) | payer OTHER, SELFPAY ==
--- OUTSIDE RECORDS SUMMARY | 2024-12-21 16:03 | XMS_ITS | Referral Summary ---
Author Organization [facility] Address [address] [place] [address] Care Team Providers Care Material Liaison Name Role Phone Terra Cooper Primary Care Provider [phone] Allergies Active Allergy Reactions Criticality Noted Date [...] (06/23/2019 7:09 PM EST): History of fatal NC in both of her parents. 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 Procedure Name Priority Date/Time Associated Diagnosis Comments BASIC METABOLIC PANEL Routine 06/23/2019 3:05 PM EST Essential hypertension from Last 3 Months or Most Recently Relevant to Health Maintenance Results * Due to [place] law, this organization might not be sharing [...] eGFR >90 >=90 mL/min/BSA 06/23/2019 3:58 PM [facility] Comment: Units = [...] [employer] [facility] [facility] [employer] [address] [place] [address], [place] from Last 3 Months or Most Recently Relevant to Health Maintenance Insurance [facility] Care Teams Material Liaison Relationship Specialty Start Date End Date Trera Cooper [address] [place] [id number] PCP - General Family Medicine 06/07/19
== END 2024-12-21 16:02 | disposition home or self-care (01) ==
LOC: HO.MAMMO 16:01
PROVIDERS: PCP Internal Medicine; Visit Provider Internal Medicine
DX: Z12.31 Encounter for screening mammogram for malignant neoplasm of breast (principal)
CPT/HCPCS: 77063; 77067

== ENCOUNTER 2025-03-28 09:12 | Outpatient (REF) | payer OTHER, SELFPAY ==
--- OUTSIDE RECORDS SUMMARY | 2025-03-28 08:00 | XMS_ITS | Encounter Summary ---
Author Organization [employer] Address [address] [facility] 7t [place] [address] Care Team Providers Care Bottom Man Name Role Phone Tu Vazquez MD Primary Care Prov ider Reason for Visit * Reason Comments Filling Patient presents tod ay for fillings Angelique LONDON Encounter Details Date Type Department Care Team ([facility] Contact Info) Description 03/28/2025 8:00 AM EDT Office Visit [facility] ADULT DENTAL [address] [place] [address] Edwin Del Valle, DMD [address] [place] [address] Defective dental orthodox (Primary Dx); Concussion injury of tooth Social History Tobacco Use Types Packs/Day Years [...] Sign Reading Time Taken Comments Blood Pressure 122/76 03/28/2025 8:11 AM EDT Pulse - - Temperature - - Respiratory Rate - - Oxygen Saturation - - Inhaled Oxygen Concentration - - Weight - - Height - - Body Mass Index - - documented in this encounter Plan of Treatment Upcoming Encounters Date Type Department Care Team (Late st Contact Info) Description 06/20/2025 8:30 AM EST Office Visit [facility] MED & PEDS [address] [place], [place] [phone] Tu Vazquez MD [address] [place], [place] [phone] documented as of this encounter Procedures Procedure Name Priority Date/Time Associated Diagnosis Comments 29 MOD RESIN-BASED COMPOSITE - 3 SURF, POSTERIOR Routine 03/28/2025 8:00 AM EDT Defective dental orthodox LIMITED ORAL EVALUATION - PROBLEM FOCUSED Routine 03/28/2025 8:00 AM EDT Concussion injury of tooth INTRAORAL - PERIAPICAL FIRST RADIOGRAPHIC IMAGE Routine 03/28/2025 8:00 AM EDT Concussion injury of tooth CASE PRESENTATION, DETAILED AND EXTENSIVE TREATMENT PLANNING Routine 03/28/2025 8:00 AM EDT Defective dental orthodox Concussion injury of tooth documented in this encounter Visit Diagnoses Diagnosis Defective dental orthodox- Primary Unspecified unsatisfactory orthodox of tooth Concussion injury of tooth documented in this encounter Additional Health Concerns Assessment Noted Time PHQ-9 Depression Total Score: 3 10/31/19 25 8:40 AM EDT documented as of this encounter Care Teams Bottom Man Relationship Specialty Start Date End Date JohnsonTu Corado MD [address] [place] [address] PCP - General Internal Medicine 12/26/19 documented as of this encounter
--- OUTSIDE RECORDS SUMMARY | 2025-03-28 09:41 | XMS_ITS | Encounter Summary ---
Author Organization [employer] Address [address] [facility] 7t [place] [address] Care Team Providers Care Supervisor [employer] Name Role Phone Tu Vazquez MD Primary Care Prov ider Encounter Details Date Type Department Care Team (Late Contact Info) Description 04/01/2023 Abstract [facility] ADULT DENTAL [address] [place] [address] Saqib Maria Social History Tobacco Use Types [...] Department Care Team (Late Contact Info) Description 06/20/2025 8:30 AM EST Office Visit [facility] MED & PEDS [address] [place] [address] Tu Vazquez MD [address] [place] [address] documented as of this encounter Visit Diagnoses Not on filedocumented in this encounter Additional Health Concerns Assessment Noted Time PHQ-9 Depression Total Score: 0 07/28/20 22 1:55 PM EST documented as of this encounter Care Teams Supervisor [employer] Relationship Specialty Start Date End Date Tu Vazquez MD [address] [place] [address] PCP - General Internal Medicine 12/26/19 documented as of this encounter
--- OUTSIDE RECORDS SUMMARY | 2025-03-28 09:41 | XMS_ITS | Encounter Summary ---
Author Organization [employer] Address [address] [facility] 7t [place] [address] Care Team Providers Care Lab Rep Name Role Phone Tu Vazquez MD Primary Care Prov ider Encounter Details Date Type Department Care Team (Latest Contact Info) Description 01/29/2021 Abstract [facility] CONVERSIONS Dental, Provider, DDS Social History [...] Description 06/20/2025 8:30 AM EST Office Visit [facility] CHC MED & PEDS [address] [place] [address] Tu Vazquez MD [address] [place] [address] documented as of this encounter Visit Diagnoses Not on filedocumented in this encounter Care Teams Lab Rep Relationship Specialty Start Date End Date Tu Vazquez MD [address] [place] [address] PCP - General Internal Medicine 12/26/19 documented as of this encounter
--- OUTSIDE RECORDS SUMMARY | 2025-03-28 09:41 | XMS_ITS | Clinical Summary ---
Author Organization [facility] Address [address] [place] [address] Care Team Providers Care Corporate Accountant Name Role Phone Terra Cooper Primary Care Provider [phone] Allergies Active Allergy Reactions Criticality Noted Date [...] (06/23/2019 7:09 PM EST): History of fatal [place] in both of her parents. 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 Procedure Name Priority Date/Time Associated Diagnosis Comments BASIC METABOLIC PANEL Routine 06/23/2019 3:05 PM EST Essential hypertension from Last 3 Months or Most Recently Relevant to Health Maintenance Results * Due to [place] apomio law, this organization might not be sharing negative HIV tests. * Basic metabolic panel (06/23/2019 3:05 PM EST) NA 137 135 - 145 mmol/L 06/23/2019 3:58 PM EST [facility] K 3.9 3.5 - 5.3 mmol/L 06/23/2019 3:58 PM EST [facility] Cl 100 97 - 110 mmol/L 06/23/2019 3:58 PM EST [facility] CO2 29 24 - 32 mmol/L 06/23/2019 3:58 PM EST [facility] BUN 14 7 - 23 mg/dL 06/23/2019 3:58 PM EST [facility] Creatinine 0.70 0.50 - 1.20 mg/dL 06/23/2019 3:58 PM EST [facility] Glucose 90 70 - 99 mg/dL 06/23/2019 3:58 PM EST [facility] Calcium 9.3 8.7 - 10.7 mg/dL 06/23/2019 3:58 PM EST [facility] Anion Gap 8 5 - 15 06/23/2019 3:58 PM EST [facility] eGFR Non- >90 >=90 mL/min/BSA 06/23/2019 3:58 PM EST [facility] eGFR >90 >=90 mL/min/BSA 06/23/2019 3:58 PM EST [facility] Comment: Units = mL/min/1.73 m2 Glomerular Filtration Rate (GFR) is estimated based on the CKD-EPI Creatinine Equation (2009). Stage Description GFR 1 Normal >=90 mL/min/BSA 2 Mildly decreased GFR 60-89 mL/min/BSA 3 Moderately decreased GFR 30-59 mL/min/BSA 4 Severely decreased GFR 15-29 mL/min/BSA 5 Kidney Failure <15 mL/min/BSA Blood specimen (specimen) Structure of peripheral vein / Unknown Venipuncture / Unknown 06/23/2019 3:05 PM EST 06/23/2019 3:31 PM EST us Josue Estrada MD LAB BLOOD ORDERABLES Final R esult [facility] [address] [place] [address], from Last 3 Months or Most Recently Relevant to Health Maintenance Insurance [place] [place] Care Teams Corporate Accountant Relationship Specialty Start Date End Date Terra Cooper [address] [place] [phone] PCP - General Family Medicine 06/07/19
--- OUTSIDE RECORDS SUMMARY | 2025-03-28 09:41 | XMS_ITS | Clinical Summary ---
Author Organization [employer] Address [address] [facility] 7[address] [place] [address] Care Team Providers Care Channel Business Manager Name Role Phone Tu Vazquez MD Primary Care Prov ider Allergies Active Allergy Reactions Criticality Noted Date Comments Hydralazine Hives,Unknown 06/05/2019 Pork-Derived Products Shortness of breath High 06/23 Medications Fluocinolone Acetonide Scalp ([place]-Smoothe/ FS Scalp) 0.01 % oilIndications: Psoriasis Once [...] times daily. 90 tablet 06/01/20 23 Active fluticasone (Flonase) 50 MCG/ACT nasal spray INHALE 1 - 2 SPRAYS IN EACH NOSTRIL ONCE DAILY IN THE MORNING 16 g 2 12/22/19 24 Active ustekinumab (Stelara) injectionIndica tions:Psoriasis 45 mg every 12 weeks 0.5 mL 09/27/19 25 Active albuterol 108 (90 Base) MCG/ACT inhaler Inhale 2 puffs every 6 (six) hours if needed for wheezing. 18 g 1 10/31/19 25 Active fluticasone furoate (Arnuity Ellipta) 200 MCG/ACT inhaler Inhale 1 puff Once per day. 30 each 2 10/31/19 25 026 Active atenolol (Tenormin) 50 MG tabletIndicatio ns:Primary hypertension Take 1 tablet (50 mg) by mouth Once per day. 90 tablet 3 03/13/20 25 Active hydroCHLOROthia zide (HYDRODiuril) 25 MG tablet Take 1 tablet (25 mg) by mouth in the morning. 90 tablet 3 03/13/20 25 Active losartan (Cozaar) 100 MG tabletIndicatio ns:Primary hypertension Take 1 tablet (100 mg) by mouth in the morning. 90 tablet 3 03/13/20 25 Active levothyroxine (Synthroid, Levoxyl) 75 MCG tablet Take 1 tablet (75 mcg) by mouth Once per day. 90 tablet 3 03/13/20 25 Active ustekinumab (Stelara) injectionIndica tions:Psoriasis 45 mg every 12 weeks 0.5 mL 03/21/20 25 Active levothyroxine (Synthroid, Levoxyl) 75 MCG tablet TAKE ONE TABLET BY MOUTH EVERY DAY 30 tablet 11 09/12/19 25 025 Discontinued(Re order (will not trigger notification to Pharmacy)) ustekinumab (Stelara) injectionIndica tions:Psoriasis 45 mg every 12 weeks 0.5 mL 09/27/19 25 025 Discontinued(Re order (will not trigger notification to Pharmacy)) losartan (Cozaar) 100 MG tabletIndicatio ns:Primary hypertension TAKE ONE TABLET EVERY MORNING 90 tablet 1 10/07/19 25 025 Discontinued(Re order (will not trigger notification to Pharmacy)) hydroCHLOROthia zide (HYDRODiuril) 25 MG tablet TAKE ONE TABLET BY MOUTH EVERY MORNING 90 tablet 3 11/23/19 25 025 Discontinued(Re order (will not trigger notification to Pharmacy)) atenolol (Tenormin) 50 MG tabletIndicatio ns:Primary hypertension Take 1 tablet (50 mg) by mouth Once per day. 90 tablet 3 12/13/19 25 025 Discontinued(Re order (will not trigger notification [...] parents with CAD and brother recently had [place] Screening for colon cancer 07/28/2022 Assessment & Plan (05/02/2024 2:11 PM EDT): Patient now prefers cologuard, risk vs benefits discussed, will send kit Assessment & Plan (07/28/2022 2:03 PM EST): Will refer to [facility], [place] [facility] [place] go [place], Acquired hypothyroidism 07/27/2022 Assessment & Plan (03/13/2025 9:43 AM EDT): New labs will be ordered, clinically euthyroid Assessment & Plan (10/30/2024 10:20 AM EDT): [...] - Continue current regimen Assessment & Plan (03/13/2025 9:43 AM EDT): Controlled, keep a low sodium diet and exercise as tolerated, follow up in 3 months Assessment & Plan (10/30/2024 10:18 AM EDT): [...] Encounters Date Type Department Care Team Description 03/28/2025 8:00 AM EDT Office Visit [facility] AD[facility] [address] [place] [address] Edwin Del Valle DMD Defective dental yarsani (Primary Dx); Concussion injury of tooth 03/21/2025 Telephone [facility] MED & PEDS [address] [place] [address] Tu Vazquez MD Med Refill; Medication Question 03/13/2025 8:30 AM EDT Telemedicine [facility] [address] [place] [address] Tu Vazquez MD Acquired hypothyroidism (Primary Dx); Primary hypertension 03/13/2025 Travel from Last 3 Months Immunizations Immunization Administration Dates Next Due Influenza injectable quadriv [...] Pressure 122/76 03/28/2025 8:11 AM EDT Pulse 70 12/05/2024 3:03 PM EDT Temperature 36.7 C (98 F) 09/19/2024 10:59 AM EST Respiratory Rate 20 [...] Description 06/20/2025 8:30 AM EST Office Visit [facility] [address] [place] [address] Tu Vazquez MD [address] [place] [address] Health Maintenance Due Date Last Done Comments CT Colonography 1975 Colonoscopy 1974 FIT 1975 FOBT 1975 Sigmoidoscopy 1975 Disability Screening 1975 Family Planning (PISQ) 1989 DTaP/Tdap/Td Vaccines (1 - Tdap) 1993 Hepatitis B Vaccines (1 of 3 - + 3-dose series) 1993 Pneumococcal Vaccine: 50+ Years (1 of 1 - PCV) 02/18/2024 Zoster Vaccines (1 of 2) 02/18/2024 COVID-19 Vaccine (3 - 2023- season) 2024 02/01/2021, 01/03/2021 SDOH Screening 09/02/2024 09/02/2023 Influenza Vaccine (#1) 2025 04/25/2019 Dental X-Ray: Bitewings 05/10/2025 05/09/2024 Dental Oral Exam 06/08/2025 12/05/2024, 03/2024, 04/01/2023 Dental Prophylaxis 06/08/2025 12/05/2024, 1 , 04/01/2023, Additional history exists Cervical Cancer Screening 08/31/2025 Pap Smear 08/31/2025 08/31/2024, 08/04, 04/15/2021 Alcohol/Substance Use Screening 10/30/2025 10/30/2024 Depression Screening 10/30/2025 10/30/2024, 10/31/19 Diabetes: Hemoglobin A1C 11/15/202511/15/ 025, 05/09/2024, 07/30/2022, Additional history exists Tobacco Screening 03/28/2026 03/28/2025 Mammogram 12/21/2026 12/21/2024, 05/0 09/2023, 11/30/2022, Additional history exists Dental X-Ray: Full Mouth 05/10/2027 05/09/2024 Colorectal Cancer Screening 05/18/2027 FIT DNA/Cologuard 05/18/2027 05/18/2024 HPV/Cotest 08/31/2029 08/31/2024, 04/15/2021 Lipid Panel 11/15/2029 11/15/2024, 10/0 03/2024, 07/30/2022, Additional history exists RSV Patients [...] patient's age to complete this topic Meningococcal B Vaccine Aged Out No l onger eligible based on patient's age to complete [...] Routine 03/28/2025 8:00 AM EDT Defective dental yarsani INTRAORAL - PERIAPICAL FIRST RADIOGRAPHIC IMAGE Routine 03/28/2025 8:00 AM EDT Concussion injury of tooth LIMITED ORAL EVALUATION - PROBLEM FOCUSED Routine 03/28/2025 8:00 AM EDT Concussion injury of tooth CASE PRESENTATION, DETAILED AND EXTENSIVE TREATMENT PLANNING Routine 03/28/2025 8:00 AM EDT Defective dental yarsani Concussion injury of tooth BI MAMMOGRAM SCREENING TOMOSYNTHESIS BILATERAL Routine 12/21/2024 4:04 PM EDT PROPHYLAXIS - ADULT Routine 12/05/2024 3 :00 PM EDT PERIODIC ORAL EVALUATION - ESTABLISHED PATIENT Routine 12/05/2024 3:00 PM EDT Dental caries HEPATITIS C AB W/REFL TO HCV RNA, QN, PCR Routine 11/15/2024 8:31 AM EDT Primary hypertension HIV 1/2 ANTIGEN/ANTIBODY, FOURTH GENERATION W/RFL Routine 11/15/2024 8:31 AM EDT Primary hypertension HEMOGLOBIN A1C Routine 11/15/2024 8:31 AM EDT Primary hypertension LIPID PANEL, STANDARD Routine 11/15/2024 8:31 AM EDT Primary hypertension HPV DNA, LOW/HIGH RISK Routine 08/31/2024 12:32 PM EST PAP SMEAR Routine 08/31/2024 12:32 PM EST Cervical cancer screening LAB COLOGUARD COLON CANCER SCREEN Routine 05/18/2024 6:50 AM EDT Screening for colon cancer INTRAORAL - COMPLETE SERIES OF RADIOGRAPHIC IMAGES Routine 05/09/2024 3:00 PM EDT Dental caries Loss of retention of dental crown from Last 3 Months or Most Recently Relevant to Health Maintenance Results * BI Mammogram Screening Tomosynthesis Bilateral (12/21/2024 4:04 PM EDT) Anatomical Region Laterality Modality Breast Bilateral Mammography 12/21/2024 4:04 PM EDT Narrative 12/30/2024 1:19 PM EDT [facility] [address] [place] [address] Mammography Report Signed Patient: Elizabeth Corona MR#: [id number] : 1975 Acct:[id number] Age/Sex: 49 / F ADM Date: 12/21/24 Loc: HO.MAMMO Attending Dr: Tu Lemon MD Ordering Physician: Tu Vazquez MD Res ults: 1Negative Date of Service: 12/21/24 Follow Up: 1 Year From Orig inal Mammogram Procedure(s): MM tomosynthesis screening BI Accession Number(s): [id number] cc: Tu Vazquez MD EXAMINATION: MM SCREENING DIGITAL BREAST TOMOSYNTHESIS, BILATERAL CLINICAL INFORMATION: Screening. Asymptomatic. COMPARISON: Mammography: Comparison is made with available priors TECHNIQUE: Digital breast mammography with tomosynthesis is performed in both the craniocaudal and mediolateral oblique views along with computer-aided detection (CAD). FINDINGS: There are scattered areas of fibroglandular [...] target due date for their next mammogram. Electronically signed by: Maribel Carreon DO 12/30/2024 01:17 PM EDT Dictated By: Maribel Carreon DO Signed By: <Electronically signed by Maribel Carreon DO in OV> 12/30/24 1317 DD/ 1604 TD/TT: 12/21/24 1626 Program Director/Traffic Director: Procedure Note Donotuseinterpreter, Image - 12/30/2024 [facility] [address] [place] [address] Mammography Report Signed Patient: Kip CoronaR#: [id number] : 1975Acct:[id number] Age/Sex: 49 / FADM Date: 12/21/24 Loc: HO.MAMMO Attending Dr: Tu Lemon MD Ordering Physician: Tu Vazquez ults: 1Negative Date of Service: 12/21/24Follow Up: 1 Year From Orig inal Mammogram Procedure(s): MM tomosynthesis screening BI Accession Number(s): [id number] cc: Tu Vazquez MD EXAMINATION: MM SCREENING DIGITAL BREAST TOMOSYNTHESIS, BILATERAL CLINICAL INFORMATION: Screening. Asymptomatic. COMPARISON: Mammography: Comparison is made with available priors TECHNIQUE: Digital breast mammography with tomosynthesis is performed in both the craniocaudal and mediolateral oblique views along with computer-aided detection (CAD). FINDINGS: There are scattered areas of fibroglandular [...] target due date for their next mammogram. Electronically signed by: Maribel Carreon DO 12/30/2024 01:17 PM EDT RP Dictated By: Maribel Carreon DO Signed By: <Electronically signed by Maribel Carreon DO in OV> 12/30/24 1317 DD/ 1604 TD/TT: 12/21/24 1626 Program Director/Traffic Director: Tu Lemon MD IMG BI PROCEDURES Final Result * Hepatitis C Antibody with Reflex to HCV, RNA, Quantitative, Real-Time PCR (11/15/2024 8:31 AM EDT) Hepatitis C Antibody Nonreactive Nonreactive [facility] Comment:Antibodies to HCV no t detected; does not exclude early acuteHCV infection. Blood Venous blood specimen / Unknown 11/15/2024 8:31 AM EDT 11/15/2024 2:18 PM EDT Tu Lemon MD LAB BLOOD ORDERABL ES Final Result [facility] [address] [place] [phone] [phone] * HIV-1/2 Antigen and Antibodies, Fourth Generation, with Reflexes (11/15/2024 8:31 AM EDT) HIV AB/AG Nonreactive Nonreactive [facility] Comment:HIV-1 p24 Ag and/or HIV-1/HIV-2 Ab not detected.A test result that is nonreactive does not exclude thepossibility of exposure to or infection with HIV-1 and/orHIV-2. Nonreactive results in this assay for individualswith prior exposure to HIV-1 and/or HIV-2 may be due toantigen and antibody levels that are below the limit ofdetection of this assay.The [employer] HIV Ag/Ab Combo assay result andsupplemental assay results should be interpreted inconjunction with the patient's clinical presentation,history and other laboratory results. If the results areinconsistent with clinical evidence, additional testing issuggested to confirm the result. Blood Venous blood specimen / Unknown 11/15/2024 8:31 AM EDT 11/15/2024 2:18 PM EDT Tu Lemon MD LAB BLOOD ORDERABL ES Final Result [facility] [address] [place] [phone] * Hemoglobin A1c (11/15/2024 8:31 AM EDT) Hemoglobin A1c 5.9 <6.0 % [facility] Comment:Hemoglobin A1C Refer ence Range [...] asaverage glucose, using the formula of the E3H-RtqvhjpRmsxbkw Glucose study (ADAG), Diabetes Care, Vol.31,#8,2007 Blood Venous blood specimen / Unknown 11/15/2024 8:31 AM EDT 11/15/2024 2:25 PM EDT Tu Lemon MD LAB BLOOD ORDERABL ES Final Result Performing Organization Address City/[facility]/ZIP Co de Phone Number [facility] [address] [place] [address] [phone] * (ABNORMAL) Lipid Panel, Standard (11/15/2024 8:31 AM EDT) Triglycerides 114 <150 mg/dL [facility] Comment:Desirable Triglyceri de: less than 150 mg/dLBorderline High Triglyceride 150-199 mg/dLHigh Triglyceride: 200-499 mg/dLVery High Triglyceride: greater than or equal to 5OO mg/dL Cholesterol 213(H) <200 mg/dL [facility] Comment:Desirable Cholestero l: less than 200 mg/dLBorderline High Cholesterol: 200-239 mg/dLHigh Cholesterol: greater than 239 mg/dL LDL Cholesterol Calculated 137(H) <100 mg/dL [facility] Comment:Desirable [...] ES Final Result [facility] [address] [place] [phone] * HPV DNA, Low/High Risk (08/31/2024 12:32 PM EST) HPV High Risk Negative Negative [facility] HPV Genotype 16 Negative Negative [facility] HPV Genotype 18 Negative Negative [facility] Comment:HPV testing performe d at [facility] (CLIA#[id number]), [address] [place] [phone].Testing for HPV was performed using the Gracia [...] EST 09/01/2024 7:25 AM EST Alpa Wade CNM LAB BLOOD ORDERABLES Nury l Result [facility] [address] [place] [phone] * Pap Smear (08/31/2024 12:32 PM EST) Swab Cervix uteri structure / Unknown 08/31/2024 12:32 PM EST 09/01/2024 6:30 AM EST Narrative [facility] - 09/12/2024 12:29 PM EST ----- ------- Name: Elizabeth Corona Age/Sex: 49/F : 1975 Unit#: [id number] Attend Dr: ALPA WADE CNM Re08/31/24 Status: DEP REF Location: HOBrendanLNP Disch: ----- ------- SPEC : [id number] RECD: 09/01/24 STATUS: LILLIE MAHARAJ NUM: [id number] LACEY: 08/31/24-1232 [facility] DR: ALPA WADE CNM ENTERED: 09/01/24 SP TYPE: Pap Smr OTHR DR: ORDERED: Pap Smear Interpretation Satisfactory for evaluation. Negative for intraepithelial lesion or malignancy. No endocervical cells seen. HPV High Risk: Negative HPV Genotyping 16: Negative HPV Genotyping 18: Negative Clinical Information LMP: Previous PAP test: 2023 Other surgery: Other history: Material Received ThinPrep-Cervical ----- ------- Signed (signature on file) SEBASTIAN Miranda (ASCP) 09/12/24 1229 ----- ------- END OF REPORT Alpa Wade CNM LAB CYTOLOGY ORDERABLES F inal Result [facility] [address] [place] [address] [phone] * Cologuard?? colon cancer screening (05/18/2024 6:50 AM EDT) Cologuard Result Negative Negative 05/25/20 8:47 PM EDT [facility] (CLIA #:[id number]) Comment: NEGATIVE TEST RESULT. A negative Cologuard result indicates a low likelihood that a colorectal cancer (CRC) or advanced adenoma (adenomatous polyps with more advanced pre-malignant features) is present. The chance that a person with a negative Cologuard test has a colorectal cancer is less than 1 in 1500 (negative predictive value >99.9%) or has an advanced adenoma is less than 5.3% (negative predictive value 94.7%). These data are based on a prospective cross-sectional study of 10,000 individuals at average risk for colorectal cancer who were screened with both Cologuard and colonoscopy. (Redd Juárez et al, N Engl J Med 2014;370(14):6322-2546) The normal value (reference range) for this assay is negative. COLOGUARD RE-SCREENING RECOMMENDATION: Periodic colorectal cancer screening is an important part of preventive healthcare for asymptomatic individuals at average risk for colorectal cancer. Following a negative Cologuard result, the [place] Cancer Society and U.S. Multi-Society Task Force screening guidelines recommend a Cologuard re-screening interval of 3 years. References: [place] [employer] Guideline for Colorectal Cancer Screening: https://www.cancer.org/cancer/qffod-wcbzzq-rkbrns/tflndgwjb-mcrsepqiu-braxaxx/ac s-rec ommendations.html.; Stewart DK, Tere CR, Love DíazK, Colorectal Cancer Screening: Recommendations for Physicians and Patients from the U.S. Multi-Society Task Force on Colorectal Cancer Screening , Am J Gastroenterology 2017; 112:5645-8962. TEST DESCRIPTION: Composite algorithmic analysis of stool DNA-biomarkers with hemoglobin immunoassay. Quantitative values of individual biomarkers are not [...] (Redd Benjamin al, N Engl J Med 2014;370(14):3900-0171.) Cologuard may produce a false negative or false positive result (no colorectal cancer or precancerous polyp present at colonoscopy follow up). A negative Cologuard test result does not guarantee the absence of CRC or advanced adenoma (pre-cancer). The current Cologuard screening interval is every 3 years. ([place] Cancer Society and U.S. Multi-Society Task Force). Cologuard performance data in a 10,000 patient pivotal study using colonoscopy as the reference method can be accessed at the following location: www.[employer]/results. Additional description of the Cologuard test process, warnings and precautions can be found at www.[employer]rd.com. Stool specimen (specimen) 05/18/2024 6:50 AM EDT 05/19/2024 12:41 PM EDT Tu Lemon MD LAB MOLECULAR DIAG NOSTICS ORDERABLES Final Result [facility] (CLIA #:[id number]) [place] [address], [place] [phone] from Last 3 Months or Most Recently Relevant to Health Maintenance Insurance [facility] 1 DENTAL - HSN PARTIAL (MEDICAID) Care Teams Channel Business Manager Relationship Specialty Start Date End Date Tu Vazquez MD [address] [place] [address] [place] [address] PCP - General Internal Medicine 12/26/19
--- OUTSIDE RECORDS SUMMARY | 2025-03-28 09:41 | XMS_ITS | Encounter Summary ---
Author Organization [employer] Address [address] [facility] 7t [place] [address] Care Team Providers Care Supervisor Bottle House Cleaners Name Role Phone Tu Vazquez MD Primary Care Prov ider Encounter Details Date Type Department Care Team (Latest Contact Info) Description 10/13/2018 Abstract [facility] CONVERSIONS Dental, Provider, DDS Social [...] 8:30 AM EST Office Visit [facility] MED & PEDS [address] [place] [address] Tu Vazquez MD [address] [place] [address] documented as of this encounter Visit Diagnoses Not on filedocumented in this encounter Care Teams Supervisor [employer]le House Cleaners Relationship Specialty Start Date End Date Tu Vazquez MD [address] [place] [address] PCP - General Internal Medicine 12/26/19 documented as of this encounter
--- OUTSIDE RECORDS SUMMARY | 2025-03-28 09:41 | XMS_ITS | Encounter Summary ---
Author Organization [employer] Address [address] [facility] [address] [place] [address] Care Team Providers Care Crm Technical Lead Name Role Phone Tu Vazquez MD Primary Care Prov ider Encounter Details Date Type Department Care Team (Late st Contact Info) Description 08/24/2024 Orders Only [facility] & PEDS [address] [place] [address] Heath Maria MD [address] [place] [address] Psoriasis (Primary Dx) Social History Tobacco Use [...] t he electric, gas, oil or water [employer] threatened to shut off services in your [...] Description 06/20/2025 8:30 AM EST Office Visit [facility] MED & PEDS [address] [place] [address] Tu Vazquez MD [address] [place] [address] documented as of this encounter Visit Diagnoses Diagnosis Psoriasis- Primary Other psoriasis documented in this encounter Additional Health Concerns Assessment Noted Time PHQ-9 Depression Total Score: 0 07/28/20 22 1:55 PM EST documented as of this encounter Care Teams Crm Technical Lead Relationship Specialty Start Date End Date Tu Vazquez MD [address] [place] [address] PCP - General Internal Medicine 12/26/19 documented as of this encounter
--- OUTSIDE RECORDS SUMMARY | 2025-03-28 09:41 | XMS_ITS | Encounter Summary ---
Author Organization [employer] Address [address] [place] [address] 7 [place] [address] Care Team Providers Care Drywall Finisher Foreman Name Role Phone Tu Vazquez MD Primary Care Prov ider Reason for Referral * Medications - Closed Specialty Diagnoses / Procedures Referred By [facility] t Referred To Contact Heath Maria MD [address] [phone] Phone: tel: fax: Referral ID Status Reason Start Date Expiration Date Visits Re quested Visits Authorized [id number] Closed 1 1 Encounter Details Date Type Department Care Team (Late st Contact Info) Description 02/19/2023 Orders Only [facility] MED & PEDS [address] [place] [address] Heath Maria MD [address] [place] [address] Social History Tobacco Use Types Packs/Day Years [...] Description 06/20/2025 8:30 AM EST Office Visit [facility] MED & PEDS [address] [place] [address] Tu Vazquez MD [address] [place] [address] documented as of this encounter Visit Diagnoses Not on filedocumented in this encounter Additional Health Concerns Assessment Noted Time PHQ-9 Depression Total Score: 0 07/28/20 22 1:55 PM EST documented as of this encounter Care Teams Drywall Finisher Foreman Relationship Specialty Start Date End Date Tu Vazquez MD [address] [place] [address] PCP - General Internal Medicine 12/26/19 documented as of this encounter
--- OUTSIDE RECORDS SUMMARY | 2025-03-28 09:41 | XMS_ITS | Encounter Summary ---
Author Organization [employer] Address [address] [facility] 7 [place] [address] Care Team Providers Care Retail Product Advisor Name Role Phone Tu Vazquez MD Primary Care Prov ider Encounter Details Date Type Department Care Team (Late Contact Info) Description 02/19/2023 Orders Only [facility] [address] [place] [address] Kala Bustillo LPN Social History Tobacco Use [...] Description 06/20/2025 8:30 AM EST Office Visit [facility] MED & PEDS [address] [place], [place] [phone] Tu Vazquez MD [address] [place], [place] [phone] documented as of this encounter Visit Diagnoses Not on filedocumented in this encounter Additional Health Concerns Assessment Noted Time PHQ-9 Depression Total Score: 0 07/28/20 22 1:55 PM EST documented as of this encounter Care Teams Retail Product Advisor Relationship Specialty Start Date End Date Tu Vazquez MD [address] [place] [id number] PCP - General Internal Medicine 12/26/19 documented as of this encounter
--- OUTSIDE RECORDS SUMMARY | 2025-03-28 09:41 | XMS_ITS | Encounter Summary ---
Author Organization [email or web address] Address [address] [facility] 7t [place] [address] Care Team Providers Care Impregnating Helper Name Role Phone Tu Vazquez MD Primary Care Prov ider Reason for Visit * Reason Onset Date Comments Medication Question 09/26/2024 Encounter Details Date Type Department Care Team (Late st Contact Info) Description 09/26/2024 Telephone [facility] MED & PEDS [address] [place] [address] Tu Vazquez MD [address] [place] [address] Medication Question Social History Tobacco Use Types [...] 11:07 AM EST TC placed to [facility] specialty pharmacy to inquire on what information is needed regarding the pt Stelara injection prescription. Per [facility], the provider needs to write specifically how often the injectionis given (ie every 6-8 weeks). [facility] was informed that this is a continuation of the medication and the dose will remain the same. * Telephone Encounter - Sonia Rashid - 09/26/2024 11:21 AM EST TC from [place] with specialty [facility] requesting description clarification on medication ustekinumab (Stelara) injection . Would like to know how often and if its a starter dose. Best contact # [phone] extension [phone]. . documented in this encounter Plan of Treatment Upcoming Encounters Date Type Department Care Team (Late st Contact Info) Description 06/20/2025 8:30 AM EST Office Visit [facility] MED & PEDS [address] [place] [address] Tu Vazquez MD [address] [place] [address] documented as of this encounter Visit Diagnoses Not on filedocumented in this encounter Additional Health Concerns Assessment Noted Time PHQ-9 Depression Total Score: 0 07/28/20 22 1:55 PM EST documented as of this encounter Care Teams Impregnating Helper Relationship Specialty Start Date End Date Tu Vazquez MD [address] [place] [id number] PCP - General Internal Medicine 12/26/19 documented as of this encounter
--- OUTSIDE RECORDS SUMMARY | 2025-03-28 09:41 | XMS_ITS | Encounter Summary ---
Author Organization [employer] Address [address] [facility] [address] 7[address] [place] [address] Care Team Providers Care Pump And Still Operator Name Role Phone Tu Vazquez MD Primary Care Prov ider Encounter Details Date Type Department Care Team (Late st Contact Info) Description 09/27/2024 Orders Only [facility] MEDICINE [address] [place] [address] Heath Maria MD [address] [place], [place] [phone] Psoriasis Social History Tobacco Use Types Packs/Day [...] Description 06/20/2025 8:30 AM EST Office Visit [facility] MED & PEDS [address] [place] [address] Tu Vazquez MD [address] [place] [address] documented as of this encounter Visit Diagnoses Diagnosis Psoriasis Other psoriasis documented in this encounter Additional Health Concerns Assessment Noted Time PHQ-9 Depression Total Score: 0 07/28/20 22 1:55 PM EST documented as of this encounter Care Teams Pump And Still Operator Relationship Specialty Start Date End Date Tu Vazquez MD [address] [place] [address] PCP - General Internal Medicine 12/26/19 documented as of this encounter
--- OUTSIDE RECORDS SUMMARY | 2025-03-28 09:41 | XMS_ITS | Encounter Summary ---
Author Organization [employer] Address [address] [facility] 7t [place] [address] Care Team Providers Care Lan Analyst Name Role Phone Tu Vazquez MD Primary Care Prov ider Encounter Details Date Type Department Care Team (Latest Contact Info) Description 04/17/2019 Abstract [facility] CONVERSIONS Dental, Provider, DDS Social History Tobacco [...] Description 06/20/2025 8:30 AM EST Office Visit [facility] MED & PEDS [address] [place] [address] Tu Vazquez MD [address] [place] [address] documented as of this encounter Visit Diagnoses Not on filedocumented in this encounter Care Teams Lan Analyst Relationship Specialty Start Date End Date Tu Vazquez MD [address] [place] [address] PCP - General Internal Medicine 12/26/19 documented as of this encounter
--- OUTSIDE RECORDS SUMMARY | 2025-03-28 09:41 | XMS_ITS | Encounter Summary ---
Author Organization [employer] Address [address] [facility] 7t [place] [address] Care Team Providers Care Operations Administrator Name Role Phone Tu Vazquez MD Primary Care Prov ider Encounter Details Date Type Department Care Team (Late st Contact Info) Description 07/04/2024 Orders Only [facility] MED & PEDS [address] [place] [address] Heath Maria MD [address] [place] [address] Social History Tobacco Use Types Packs/Day Years [...] Description 06/20/2025 8:30 AM EST Office Visit [facility] MED & PEDS [address] [place] [address] Tu Vazquez MD [address] [place] [address] documented as of this encounter Visit Diagnoses Not on filedocumented in this encounter Additional Health Concerns Assessment Noted Time PHQ-9 Depression Total Score: 0 07/28/20 22 1:55 PM EST documented as of this encounter Care Teams Operations Administrator Relationship Specialty Start Date End Date Tu Vazquez MD [address] [place] [address] PCP - General Internal Medicine 12/26/19 documented as of this encounter
--- OUTSIDE RECORDS SUMMARY | 2025-03-28 09:41 | XMS_ITS | Encounter Summary ---
Author Organization [employer] Address [address] [facility] 7t [place] [address] Care Team Providers Care Electrician Ship Name Role Phone Tu Vazquez MD Primary Care Prov ider Encounter Details Date Type Department Care Team (Late st Contact Info) Description 09/19/2024 Orders Only [facility] CH[facility] MED & PEDS [address] [place] [address] Heath Maria MD [address] [place] [address] Psoriasis Social History Tobacco Use Types Packs/Day [...] Description 06/20/2025 8:30 AM EST Office Visit [facility] MED & PEDS [address] [place] [address] Tu Vazquez MD [address] [place] [address] documented as of this encounter Visit Diagnoses Diagnosis Psoriasis Other psoriasis documented in this encounter Additional Health Concerns Assessment Noted Time PHQ-9 Depression Total Score: 0 07/28/20 22 1:55 PM EST documented as of this encounter Care Teams Electrician Ship Relationship Specialty Start Date End Date Tu Vazquez MD [address] [place] [address] PCP - General Internal Medicine 12/26/19 documented as of this encounter
--- OUTSIDE RECORDS SUMMARY | 2025-03-28 09:41 | XMS_ITS | Encounter Summary ---
Author Organization [employer] Address [address] [facility] 7t [place] [address] Care Team Providers Care Hammer Mill Operator Name Role Phone Tu Vazquez MD Primary Care Prov ider Encounter Details Date Type Department Care Team (Latest Contact Info) Description 06/08/2022 Abstract [facility] CONVERSIONS Dental, Provider, DDS Social History [...] Description 06/20/2025 8:30 AM EST Office Visit [facility] MED & PEDS [address] [place] [address] Tu Vazquez MD [address] [place] [address] documented as of this encounter Visit Diagnoses Not on filedocumented in this encounter Care Teams Hammer Mill Operator Relationship Specialty Start Date End Date Tu Vazquez MD [address] [place] [address] PCP - General Internal Medicine 12/26/19 documented as of this encounter
[2025-03-28 14:45] LABS: MANUAL DIFF FLAG NO
[2025-03-28 14:49] LABS: Hematocrit 43.0 % (37.0-47.0); Hemoglobin 14.1 g/dl (12.0-16.0); Imm Gran Abs Auto 0.02 X10*3/uL (0.00-0.03); Imm Gran Pct Auto 0.3 % (0.0-0.4); Lymphocytes Absolute Auto 1.6 X10*3/uL (1.2-4.9); Mean Corpuscular HGB Conc 32.8 g/dl (31.0-35.0); Mean Corpuscular Hemoglobin 28.8 pg (27.0-33.0); Mean Corpuscular Volume 87.8 fL (80.0-98.0); NRBC Abs Auto 0.000 X10*3/uL (0.0-0.012); NRBC Pct Auto 0.0 /100WBC (0.0-0.2); Platelet Count 224 X10*3/uL (160-400); Red Blood Count 4.90 X10*6/uL (4.20-5.50); White Blood Count 6.4 X10*3/uL (4.8-10.8)
[2025-03-28 15:17] LABS: Alanine Aminotransferase 20 U/L (0-31); Albumin Level 4.0 g/dL (3.5-5.0); Alkaline Phosphatase 64 U/L (39-117); Anion Gap 11 (12-20); Aspartate Amino Transferase 20 U/L (5-31); Blood Urea Nitrogen 19 mg/dL (9-16); Calcium 8.7 mg/dL (8.4-10.2); Carbon Dioxide 28 mmol/L (22-29); Chloride 103 mmol/L (96-108); Cholesterol 216 mg/dL (<200); Estimated Glomerular Filt Rate > 60; HDL Cholesterol 51 mg/dL (>40); Potassium 4.0 mmol/L (3.3-5.1); Sodium 138 mmol/L (135-145); Total Protein 6.6 g/dL (6.5-8.0); Triglycerides 110 mg/dL (<150)
== END 2025-03-28 09:13 | disposition home or self-care (01) ==
LOC: HO.CHCLDS 09:12
PROVIDERS: Visit Provider Internal Medicine
DX: I10 Essential (primary) hypertension (principal)
CPT/HCPCS: 36415; 80053; 80061; 84443; 85025; 85652; 86140; 86200; 86431